=== PATIENT | female | born 1960 | race Caucasian/White ===

== ENCOUNTER 2020-06-06 11:19 | Outpatient (REF) | payer OTHER, SELFPAY | END 2020-06-06 11:20 | disposition home or self-care (01) | LOC: HO.LAB 11:19 | PROVIDERS: Visit Provider Internal Medicine | DX: Z20.828 Contact with and (suspected) exposure to other viral communicable diseases (principal) | CPT/HCPCS: C9803; U0003 ==

== ENCOUNTER 2021-04-24 15:24 | Inpatient (IN) | payer MEDICAID, SELFPAY ==
[2021-04-24] VITALS (7 sets, daily range): BP systolic 99–137; BP diastolic 62–84; PULSE 69–108; RESP 12–18; TEMP 36.4–36.8; O2SAT 93–99; BMI 24.2
--- NOTE | ~2021-04-24 | CT_ITS ---
EXAMINATION: CT ABDOMEN AND PELVIS WITH CONTRAST CLINICAL INFORMATION: Vomiting. Diarrhea. Abdominal pain. COMPARISON: CT scan abdomen March 22, 2007 TECHNIQUE: Multidetector volumetric images were obtained from the superior aspect of the liver through the pubic symphysis following administration 85 mL of Omnipaque 350 intravenous contrast. Sagittal and coronal reformatted images were obtained on the technologist's workstation. Oral contrast: No This CT examination was performed using dose optimization techniques as appropriate, variously including the following: *Automated exposure control *Adjustment of mA and/or kV according to patient size (this includes techniques or standardized protocols for targeted exams where dose is matched to indication/reason for exam; i.e. extremities or head) *Use of iterative reconstruction technique DLP: 742 mGy-cm FINDINGS: LUNG BASES: The visualized lung bases are unremarkable. LIVER, GALLBLADDER, AND BILIARY TREE: The liver is normal in size, shape, and attenuation. No focal hepatic lesion or biliary ductal dilatation is present. Status post cholecystectomy. Chronic dilatation of the CBD to a diameter of 1.2 cm. No calcified stone present in the bile ducts. PANCREAS: Unremarkable. SPLEEN: Unremarkable. ADRENAL GLANDS: Unremarkable. KIDNEYS AND URETERS: The kidneys are normal in size, shape, and attenuation. No hydronephrosis, hydroureter, or calculi seen. No perinephric stranding. BLADDER: Unremarkable. GASTROINTESTINAL TRACT: There is fat involving the submucosa of the cecum ascending and proximal transverse colon. This can be seen as sequela of prior inflammatory disease. No evidence though of acute inflammation of the colon. There is however dilatation of the mid through distal small bowel loops up to the terminal ileum. Transition point at the ileocecal valve. No mass involving the ileocecal valve, colon or small bowel. There is bowel wall thickening and mild enhancement of the small bowel loops which is most pronounced at the distal terminal ileum. There is mild edema in the mesentery with small volume of free fluid in the lower pelvis but no abscess or perforation. The stomach and duodenum are normal. There are diverticula of the sigmoid colon without evidence of diverticulitis. ABDOMINAL WALL: No significant hernia is appreciated. LYMPH NODES: Normal. VASCULAR: Unremarkable. PELVIC VISCERA: Unremarkable. OSSEOUS STRUCTURES: Unremarkable. CT/CT abdomen pelvis w con IMPRESSION: 1. There is dilatation of small bowel loops involving the mid and distal small bowel through the terminal ileum with bowel wall thickening and mild enhancement consistent with a moderate to high-grade small bowel obstruction. Transition point is at the ileocecal valve. 2. No dilatation of the large bowel. There is however fatty deposition the submucosa of the cecum, ascending colon through proximal transverse colon which can be a sequela of prior chronic inflammatory change of bowel. There is no evidence of an acute inflammation though of the colon. 3. Diverticulosis of the sigmoid colon without evidence of diverticulitis.
--- NOTE | ~2021-04-24 | XR_ITS ---
EXAMINATION: XR ABDOMEN COMPLETE CLINICAL INDICATION: C. Difficile, small bowel obstruction. Follow-up. COMPARISON: CT abdomen and pelvis with contrast 04/24/2021 TECHNIQUE: 3 views of the abdomen. FINDINGS: There are scattered gas in the large and small bowel which are normal in caliber. There is no gaseous dilatation of bowel. No pneumatosis or visible free air. No visible bowel displacement. No thumbprinting seen on plain film. There are surgical clips right upper quadrant from prior cholecystectomy. There is contrast in the urinary bladder from recent CT. XR/XR acute abdomen series IMPRESSION: No gaseous dilatation of bowel or abnormal collections of gas. No pneumatosis.
[2021-04-24 16:05] LABS: Glucose, Whole Blood 165 mg/dL (60-115)
--- NOTE | 2021-04-24 16:23 | ECG_ITS ---
Test Reason : NAUSEA Blood Pressure : / mmHG Vent. Rate : 070 BPM Atrial Rate : 070 BPM P-R Int : 136 ms QRS Dur : 082 ms QT Int : 438 ms P-R-T Axes : 002 023 029 degrees QTc Int : 473 ms Normal sinus rhythm Nonspecific T wave abnormality Prolonged QT Abnormal ECG T wave amplitude has decreased in Anterolateral leads Inferior leads Referred By: Altaf Chaudhry Electronically Signed By:TOD ESQUIVEL MD
[2021-04-24 16:27] LABS: Basophils Absolute Auto 0.1 X10*3/uL (0.0-0.2); Basophils Percent Auto 0.2 % (0-2); Eosinophils Absolute Auto 0.1 X10*3/uL (0.0-0.4); Eosinophils Percent Auto 0.4 % (0-4); Hematocrit 45.9 % (37-47); Hemoglobin 15.1 g/dl (12.0-16.0); Imm Gran Abs Auto 0.15 X10*3/uL (0.00-0.03); Imm Gran Pct Auto 0.6 % (0.0-0.4); Lymphocytes Absolute Auto 1.3 X10*3/uL (1.2-4.9); Lymphocytes Percent Auto 5.2 % (20-40); MANUAL DIFF FLAG SCAN; Mean Corpuscular HGB Conc 32.9 g/dl (31.0-35.0); Mean Corpuscular Hemoglobin 29.8 pg (27.0-33.0); Mean Corpuscular Volume 90.7 fL (80-98); Monocytes Absolute Auto 0.7 X10*3/uL (0.1-1.2); Monocytes Percent Auto 2.9 % (2-11); Neutrophils Absolute Auto 22.7 X10*3/uL (2.0-8.3); Neutrophils Percent Auto 90.7 % (45-73); Platelet Count 365 X10*3/uL (160-400); Red Blood Count 5.06 X10*6/uL (4.20-5.50); Red Cell Distribution Width 13.6 % (11.0-16.0); SCAN SMEAR FLAG 1; White Blood Count 25.1 X10*3/uL (4.8-10.8)
[2021-04-24 16:47] LABS: Troponin-I High Sensitivity 8.5 ng/L (<3.5-17.0)
[2021-04-24 16:48] LABS: Alanine Aminotransferase 31 U/L (0-31); Albumin Level 4.3 g/dL (3.5-5.0); Alkaline Phosphatase 81 U/L (39-117); Aspartate Amino Transferase 34 U/L (5-31); Bilirubin Total 0.7 mg/dL (0.0-1.0); Blood Urea Nitrogen 8 mg/dL (9-16); C Reactive Protein 2.17 mg/dL (< or = 0.50); Calcium 7.4 mg/dL (8.4-10.2); Creatinine Clr Calc Pharmacy 44.4; Estimated Glomerular Filt Rate 43; Glucose Random 173 mg/dL (60-115); Lipase 28 U/L (8-78); Total Protein 6.9 g/dL (6.5-8.0)
[2021-04-24 16:59] LABS: Anion Gap 22 (12-20); Carbon Dioxide 28 mmol/L (22-29); Chloride 99 mmol/L (96-108); Potassium 2.7 mmol/L (3.3-5.1); Sodium 146 mmol/L (135-145)
[2021-04-24] MEDS: ondansetron HCL 4 MG/2 ML VIAL IVPUSH (16:59)
[2021-04-24] MEDS: Ketorolac Tromethamine 15 MG/ML VIAL 30 MG IVPUSH (16:59)
[2021-04-24] MEDS: 0.9 % Sodium Chloride 1,000 ML 999 ML IV (16:59)
[2021-04-24 17:13] LABS: COVID-19 Test Negative (Negative); IDNOW Serial# 9DD0AD1C
--- NOTE | 2021-04-24 17:27 | ED.GENADULT ---
HPI - General Adult General Chief complaint: Nausea/Vomiting/Diarrhea Stated complaint: RECENT UTI W/ MEDS, FACE SWELLING Time Seen by Provider: 04/24/21 15:44 Source: patient Mode of arrival: EMS Limitations: no limitations History of Present Illness HPI narrative: 61-year-old female who presents emergency department for evaluation of nausea, vomiting, diarrhea and weakness. The patient states that she was in the [place] for a wedding from 04/09/2021 until 04/18/2021. She states that on 04/12/2021 she developed diarrhea and vomiting. She states that she had multiple episodes of diarrhea and vomiting, too numerous to count. She states that she was hospitalized for 2 days and receive ciprofloxacin and Flagyl. She states that she was diagnosed with a urinary tract infection. She states that she was sent home on Flagyl but did not complete her course. She states that over the past 2 days her symptoms returned. She states that she has been vomiting three to 4 times a day. She states that she has also had multiple episodes of diarrhea per day. She states the diarrhea is watery with pieces of stool in it. She has not noticed any blood in the diarrhea. She denied fever but states she has been having chills. She states she was feeling weak lightheaded and dizzy. patient states that she was on the toilet and developed a cramping sensation while she was moving her bowels, she felt lightheaded and dizzy as if she is going to pass out, she then had trouble talking and moving, her called an ambulance and she was transported to the emergency department. EMS reports the patient was lethargic and they gave her Benadryl IV since they were concerned that she was having allergic reaction (she was on antibiotics and she appeared to have redness of her upper extremities and face). EMS reports the patient seemed to wake up after the Benadryl was administered. Related Data Allergies Allergy/AdvReac Type Severity Reaction Status Date / Time amoxicillin [From AUGMENTIN] Allergy Mild NAUSEA & Unverified 03/14/20 14:43 VOMITING clavulanic acid Allergy Mild NAUSEA & Unverified 03/14/20 14:43 [From AUGMENTIN] VOMITING Penicillins [PCN] Allergy Mild HIVES Unverified 03/14/20 14:43 Sulfa (Sulfonamide Allergy Mild HIVES Unverified 03/14/20 14:43 Antibiotics) [SULFA (SULFONAMIDE ANTIBIOTICS)] Review of Systems Review of Systems: Yes all other systems are reviewed and are negative [facility] Past Medical History [facility] Narrative: Past medical history: Asthma, GERD. Past surgical history: Cholecystectomy, tonsillectomy. Social history: The patient smokes 1/2 pack of cigarettes per day times 45 years. The patient drinks alcohol once or twice a week, she drinks wine. She states she is allergic to pops and beer. Patient denies drug use. Social History Social History Alcohol intake: current Alcohol intake frequency: a few times a month Patient Tobacco Use Status: Never used Tobacco Use of substances other than those prescribed or required for medical reasons: No Advance Directives: No Advance Directives Information Provided: No Patient : No Physical Exam Vital Signs: Vital Signs: Last Vital Signs Temp 98.3 F 04/24/21 17:50 Pulse 85 04/24/21 18:34 Resp 13 04/24/21 18:34 BP 123/72 04/24/21 18:34 Pulse Ox 93 04/24/21 17:50 Body Mass Index 24.2 Const: General: cooperative and no acute distress Orientation/consciousness: oriented to person and oriented to place Limitations: no limitations HENMT: Head: Yes normal to inspection, Yes normocephalic and Yes atraumatic Ears: external ears normal General nose exam: Normal external nose present Face and sinus: Yes normal facial exam Mouth: Normal oral and palatal mucosa present Throat: Yes posterior oropharynx normal Eyes: General: appearance normal, both eyes and all related structures Pupils: Equal, round and reactive pupils present Neck: Neck: Yes normal visual inspection, Yes no lymphadenopathy, Yes trachea midline and Yes supple Chest: Chest palpation & inspection: normal inspection of the chest and normal palpation of entire chest wall Resp: Effort & Inspection: normal respiratory effort and able to speak in complete sentences Auscultation: clear to auscultation bilaterally Cardio: Rate: regular rate Rhythm: regular rhythm Heart sounds: S1 normal heart sound present, S2 normal heart sound present and no murmurs GI: Inspection: Yes normal to inspection Palpation (GI): Soft to palpation, Tenderness to palpation present (GI) in the LLQ ([id number]) and no guarding Auscultation: normal bowel sounds : General: Yes no CVA tenderness Back/Spine/Pelvis: Back: no CVA tenderness Skin: General skin exam: no rashes or lesions noted Neuro: General: oriented to person and oriented to place Cranial nerves: Yes CN's II-XII intact bilaterally and Yes Equal, round and reactive pupils present Cognition (Neuro): normal cognition Motor exam (neuro): 5/5 motor strength present throughout Extrem: General: Yes normal to inspection Psych: Appearance: grossly normal Speech and movement: Normal speech and movement present Affect: normal affect Attitude: cooperative Thought process: Normal thought process present Thought content: Normal thought content present Course Course Course Narrative: 61-year-old female who presents emergency department for evaluation of several days of vomiting, diarrhea, decreased appetite poor food intake. The patient was recently traveling in the [place] for awaiting from 04/09/2021 to 04/18/2021. She did developed diarrhea and vomiting while she was in the [facility] and was hospitalized for 2 days with possible urinary tract infection, which was treated with ciprofloxacin and Flagyl. She was discharged home with Flagyl did not complete the course. Prior to coming to the emergency department today, the patient had a episode of weakness while she was on the toilet and this is consistent with a vasovagal syncope most likely secondary to dehydration. Patient's examination did reveal tenderness palpation of her left lower quadrant of her abdomen otherwise was unremarkable. I did order a CBC, CMP, lactic acid, blood cultures x2, stool culture, stool leukocytes, C difficile PCR assay. CT scan of the abdomen pelvis was also ordered to evaluate for possible colitis. She was ordered to get Toradol 30 mg IV, Zofran 4 mg IV and normal saline x1 L. 1740: [place] [address], differential revealed 90 neutrophils, 5 lymphocytes. Comprehensive metabolic panel revealed an elevated sodium of 146, low potassium of 2.7, normal bicarb of 28 but an anion gap of 22. BUN and creatinine were normal. Lactate was elevated at 4.0. CRP is elevated 2.17. Lipase was normal. COVID-19 test was negative. Patient's laboratory evaluation is consistent with metabolic acidosis. Patient does have an elevated white blood cell count is also concerning, the patient may have the C difficile colitis versus bacterial cause for her diarrhea. I do not have a urine sample on the patient yet. Given the possibility for C difficile colitis, I do not want to give this patient antibiotics and the some certain that she has a bacterial infection. . I did order a 30 cc/kilogram fluid bolus. 190: The patient's C difficile colitis as a is positive. Patient will be treated with oral vancomycin. The patient's CT scan of the abdomen pelvis however did reveal dilatation of the small bowel loops involving the mid and distal small bowel through the terminal ileum with bowel wall thickening and mild enhancement consistent with moderate to high-grade small-bowel obstruction with a transition point at the ileocecal valve. This is concerning for possible inflammatory bowel disease. The patient did not have any dilatation of the transverse colon and no evidence for colitis. I do not think the patient has a complete bowel obstruction and she may have a partial bowel obstruction. I will discuss this finding covering rn new graduate 1927: I did discuss the patient's presentation with our rn new graduate, Dr. Crowe. He recommended treating the C difficile with oral vancomycin 250 mg 4 times a day. He recommended getting a plain abdominal film in the morning. He also recommended discussing the CT scan findings with the covering surgeon. 1931: I did discuss the patient's presentation with the covering general surgeon, Dr. Smith. She also recommended treating the patient C difficile colitis and did not think that the patient required emergent surgery at this time. I will discuss the patient's presentation with the covering hospitalist. Medical Decision Making Lab Data Result diagrams: 04/24/21 16:18 04/24/21 16:18 Labs: Lab Results 04/24/21 04/24/21 04/24/21 Range/Units 15:46 16:18 16:18 WBC 25.1 H (4.8-10.8) X10*3/uL RBC 5.06 (4.20-5.50) X10*6/uL Hgb 15.1 (12.0-16.0) g/dl Hct 45.9 (37-47) % MCV 90.7 (80-98) fL MCH 29.8 (27.0-33.0) pg MCHC 32.9 (31.0-35.0) g/dl RDW 13.6 (11.0-16.0) % Plt Count 365 (160-400) X10*3/uL MPV 10.0 (9.4-12.3) fL Immature Gran % (Auto) 0.6 H (0.0-0.4) % Neut % (Auto) 90.7 H (45-73) % Lymph % (Auto) 5.2 L (20-40) % [place] % (Auto) 2.9 (2-11) % Eos % (Auto) 0.4 (0-4) % Baso % (Auto) 0.2 (0-2) % Lymph # (Auto) 1.3 (1.2-4.9) X10*3/uL [place] # (Auto) 0.7 (0.1-1.2) X10*3/uL Eos # (Auto) 0.1 (0.0-0.4) X10*3/uL Baso # (Auto) 0.1 (0.0-0.2) X10*3/uL Abs Immat Gran (auto) 0.15 H (0.00-0.03) X10*3/uL Absolute Neuts (auto) 22.7 H (2.0-8.3) X10*3/uL Absolute Nucleated RBC 0.000 (0.0-0.012) X10*3/uL Nucleated RBC % (auto) 0.0 (0.0-0.2) /100WBC Smear Tech's Comments VERIFIED Sodium 146 H (135-145) mmol/L Potassium 2.7 L (3.3-5.1) mmol/L Chloride 99 (96-108) mmol/L Carbon Dioxide 28 (22-29) mmol/L Anion Gap 22 H (12-20) BUN 8 L (9-16) mg/dL Creatinine 1.26 (0.5-1.4) mg/dL Estim Creat Clear Calc 44.4 Estimated GFR 43 POC Glucose 165 H (60-115) mg/dL Random Glucose 173 H (60-115) mg/dL Lactic Acid (0.5-2.0) mmol/L Lactic Acid Fup @ 2Hr (0.5-2.0) mmol/L Calcium 7.4 L (8.4-10.2) mg/dL Total Bilirubin 0.7 (0.0-1.0) mg/dL AST 34 H (5-31) U/L ALT 31 (0-31) U/L Alkaline Phosphatase 81 (39-117) U/L Troponin I High Sens (<3.5-17.0) ng/L C-Reactive Protein 2.17 H (< or = 0.50) mg/dL Total Protein 6.9 (6.5-8.0) g/dL Albumin 4.3 (3.5-5.0) g/dL Lipase 28 (8-78) U/L Stool Leukocytes, Qual (NEGATIVE) C. difficile Tox B Gene (Negative) COVID-19 (KJ) (Negative) COVID-19 Clin Com 04/24/21 04/24/21 04/24/21 Range/Units 16:18 16:18 16:18 WBC (4.8-10.8) X10*3/uL RBC (4.20-5.50) X10*6/uL Hgb (12.0-16.0) g/dl Hct (37-47) % MCV (80-98) fL MCH (27.0-33.0) pg MCHC (31.0-35.0) g/dl RDW (11.0-16.0) % Plt Count (160-400) X10*3/uL MPV (9.4-12.3) fL Immature Gran % (Auto) (0.0-0.4) % Neut % (Auto) (45-73) % Lymph % (Auto) (20-40) % [place] % (Auto) (2-11) % Eos % (Auto) (0-4) % Baso % (Auto) (0-2) % Lymph # (Auto) (1.2-4.9) X10*3/uL [place] # (Auto) (0.1-1.2) X10*3/uL Eos # (Auto) (0.0-0.4) X10*3/uL Baso # (Auto) (0.0-0.2) X10*3/uL Abs Immat Gran (auto) (0.00-0.03) X10*3/uL Absolute Neuts (auto) (2.0-8.3) X10*3/uL Absolute Nucleated RBC (0.0-0.012) X10*3/uL Nucleated RBC % (auto) (0.0-0.2) /100WBC Smear Tech's Comments Sodium (135-145) mmol/L Potassium (3.3-5.1) mmol/L Chloride (96-108) mmol/L Carbon Dioxide (22-29) mmol/L Anion Gap (12-20) BUN (9-16) mg/dL Creatinine (0.5-1.4) mg/dL Estim Creat Clear Calc Estimated GFR POC Glucose (60-115) mg/dL Random Glucose (60-115) mg/dL Lactic Acid 4.0 H* (0.5-2.0) mmol/L Lactic Acid Fup @ 2Hr (0.5-2.0) mmol/L Calcium (8.4-10.2) mg/dL Total Bilirubin (0.0-1.0) mg/dL AST (5-31) U/L ALT (0-31) U/L Alkaline Phosphatase (39-117) U/L Troponin I High Sens 8.5 (<3.5-17.0) ng/L C-Reactive Protein (< or = 0.50) mg/dL Total Protein (6.5-8.0) g/dL Albumin (3.5-5.0) g/dL Lipase (8-78) U/L Stool Leukocytes, Qual (NEGATIVE) C. difficile Tox B Gene (Negative) COVID-19 (KJ) Negative (Negative) COVID-19 Clin Com See Note 04/24/21 04/24/21 04/24/21 Range/Units 16:50 16:50 18:42 WBC (4.8-10.8) X10*3/uL RBC (4.20-5.50) X10*6/uL Hgb (12.0-16.0) g/dl Hct (37-47) % MCV (80-98) fL MCH (27.0-33.0) pg MCHC (31.0-35.0) g/dl RDW (11.0-16.0) % Plt Count (160-400) X10*3/uL MPV (9.4-12.3) fL Immature Gran % (Auto) (0.0-0.4) % Neut % (Auto) (45-73) % Lymph % (Auto) (20-40) % [place] % (Auto) (2-11) % Eos % (Auto) (0-4) % Baso % (Auto) (0-2) % Lymph # (Auto) (1.2-4.9) X10*3/uL [place] # (Auto) (0.1-1.2) X10*3/uL Eos # (Auto) (0.0-0.4) X10*3/uL Baso # (Auto) (0.0-0.2) X10*3/uL Abs Immat Gran (auto) (0.00-0.03) X10*3/uL Absolute Neuts (auto) (2.0-8.3) X10*3/uL Absolute Nucleated RBC (0.0-0.012) X10*3/uL Nucleated RBC % (auto) (0.0-0.2) /100WBC Smear Tech's Comments Sodium (135-145) mmol/L Potassium (3.3-5.1) mmol/L Chloride (96-108) mmol/L Carbon Dioxide (22-29) mmol/L Anion Gap (12-20) BUN (9-16) mg/dL Creatinine (0.5-1.4) mg/dL Estim Creat Clear Calc Estimated GFR POC Glucose (60-115) mg/dL Random Glucose (60-115) mg/dL Lactic Acid (0.5-2.0) mmol/L Lactic Acid Fup @ 2Hr 4.5 H* (0.5-2.0) mmol/L Calcium (8.4-10.2) mg/dL Total Bilirubin (0.0-1.0) mg/dL AST (5-31) U/L ALT (0-31) U/L Alkaline Phosphatase (39-117) U/L Troponin I High Sens (<3.5-17.0) ng/L C-Reactive Protein (< or = 0.50) mg/dL Total Protein (6.5-8.0) g/dL Albumin (3.5-5.0) g/dL Lipase (8-78) U/L Stool Leukocytes, Qual NEGATIVE (NEGATIVE) C. difficile Tox B Gene POSITIVE A* (Negative) COVID-19 (KJ) (Negative) COVID-19 Clin Com Discharge Plan Discharge Clinical Impression: Clostridium difficile infection, Acute hypokalemia, Acute dehydration, Vasovagal syncope, Vasovagal near syncope Patient Disposition: Admitted As Inpatient
[2021-04-24 18:08] LABS: SLIDE REVIEW VERIFIED
[2021-04-24] MEDS: iohexoL 350 MG/ML 100 ML INFUS..BTL IV (18:11)
[2021-04-24] MEDS: 0.9 % Sodium Chloride 2,041.17 ML 2041.17 ML IV (18:15)
[2021-04-24] MEDS: Potassium Chloride/H20 10 MEQ/100 ML PIGGYBACK 100 MEQ IV ×4 (18:17→23:32)
[2021-04-24] MEDS: Potassium Chloride Packet 20 MEQ PACKET 40 MEQ PO (18:17)
[2021-04-24 18:24] LABS: Reflex Lactate? Lactic Acid Added
[2021-04-24 18:26] LABS: Leukocytes Stool Qualitative NEGATIVE (NEGATIVE)
[2021-04-24 18:42] LABS: CDiff Gene PCR POSITIVE (Negative)
[2021-04-24 19:16] LABS: ~Lactic Acid-LAB USE ONLY 4.5 mmol/L (0.5-2.0)
[2021-04-24 19:30] LABS: CDIFF Internal ctrl Dots and bkg OK (V); CDiff Toxin Negative (Negative)
[2021-04-24] MEDS: vancomycin HCL 125 MG CAPSULE PO (19:41)
--- NOTE | 2021-04-24 20:02 | PM.IMHP ---
History of Present Illness Date of Service: 04/24/21 Chief Complaint: Diarrhea 61-year-old female with a past medical history of GERD, question irritable bowel syndrome; presented to the hospital with a chief complaint of diarrhea. Patient reported that she had diarrhea about 2 weeks ago and has seen the PCP who were thinking she probably had interval bowel syndrome. Mentioned that she went to [facility] for travel and had question talus diarrhea/UTI and was admitted to the hospital for 2 days and was on Cipro and Flagyl. At the time she also was noted to have oral thrush. She returned from [facility] on last Wednesday; from Wednesday she started to have diarrhea which was initially few episodes but today she has multiple episodes of loose watery stools; denies any blood in the stool. Also had multiple episodes of vomiting; denies any blood in the vomitus. Complains of intermittent episodes of crampy abdominal pain which is also on its own. Denies any numbness tingling or focal weakness. Today when she was having a bowel movement she felt lightheaded and dizzy and also chills; denies any fall or loss of consciousness. Denies any chest pain or palpitations. Currently denies any lightheadedness dizziness or chest pains. Denies any urinary symptoms. Review of all other systems is negative except mentioned above ER course: Per ER team patient noted to be dry; on labs noted to have lactic acidosis; on CT abdomen noted to have high-grade small-bowel obstruction; C diff positive; ER team discussed with Dr. Crowe from Gastroenterology who recommended to give the patient 250 mg of p.o. vancomycin-also concern for possible inflammatory bowel disease undiagnosed, be evaluated in the morning. ER team also spoke to Gastroenterology who mentioned no acute surgery needed, recommended treating C diff. admission to Medicine Service. [facility] Pertinent family history: reviewed Social History Alcohol intake: current Alcohol intake frequency: a few times a month Patient Tobacco Use Status: Current everyday Tobacco user Tobacco use type: Cigarette Cigarette Packs Per Day: 0.5 Cigarettes Per Day: 10.0 Smoked in Last 30 Days: Yes Patient Interested in Nicotine Replacement: No Use of substances other than those prescribed or required for medical reasons: No Currently Displaying Signs/Symptoms of Drug Intoxication Withdrawal: No Have you been hit, kicked, punched, or otherwise hurt by someone within the past year? If so, by whom?: No Do you feel safe in your current relationship?: Yes Is there a partner from a previous relationship who is making you feel unsafe now?: No Are you made to feel afraid or neglected: No Advance Directives: No Advance Directives Information Provided: No Advance Directives on File: No Do you have thoughts of harming others: None Do you have a plan to hurt others: No Plan Recently lost weight without trying: No Nutrition Risks: Poor intake 0-25% >4 days Patient : No : No Poor oral hygiene: No Meds Allergies Allergy/AdvReac Type Severity Reaction Status Date / Time amoxicillin [From AUGMENTIN] Allergy Mild NAUSEA & Verified 04/24/21 20:16 VOMITING clavulanic acid Allergy Mild NAUSEA & Verified 04/24/21 20:16 [From AUGMENTIN] VOMITING Penicillins [PCN] Allergy Mild HIVES Verified 04/24/21 20:16 Sulfa (Sulfonamide Allergy Mild HIVES Verified 04/24/21 20:16 Antibiotics) [SULFA (SULFONAMIDE ANTIBIOTICS)] Active Medications: Current Medications Acetaminophen (Acetaminophen 325 Mg Tablet) 650 mg PO Q6H PRN PRN Reason: Pain, Mild (Pain Scale 1-3) Famotidine (Famotidine/Pf 20 Mg/2 Ml Vial) 20 mg IVPUSH BID [facility] Potassium Chloride () 10 meq in 100 mls @ 100 mls/hr IV Q1H [facility] Stop: 04/24/21 21:44 Last Admin: 04/24/21 19:36 Dose: 100 mls/hr Documented by: Dextrose/Sodium Chloride (D51/2ns) 1,000 mls @ 75 mls/hr IVCONT .[id number] [facility] Melatonin (Melatonin 3 Mg Tablet) 6 mg PO BEDTIME PRN PRN Reason: Insomnia Senna (Sennosides 8.6 Mg Tablet) 17.2 mg PO BEDTIME PRN PRN Reason: Constipation Sodium Chloride (0.9 % Sodium Chloride Flush 3 Ml Syringe) 3 ml IVFLUSH QSHIFT [facility] Vancomycin HCl (Vancomycin Hcl 125 Mg Capsule) 125 mg PO ONCE [place] Vancomycin HCl (Vancomycin Hcl 125 Mg Capsule) 250 mg PO Q6H [facility] Home Medications Medication Instructions Recorded Confirmed Last Taken Type albuterol sulfate 90 mcg/actuation 2 puff PO QID 04/24/21 04/24/21 Unknown History aerosol inhaler fluticasone 100 mcg-salmeterol 50 1 puff PO BID 04/24/21 04/24/21 Unknown History mcg/dose blistr powdr for inhalation (Advair Diskus) omeprazole 20 mg capsule,delayed 1 cap PO BID 04/24/21 04/24/21 04/24/21 History release Physical Exam Vital Signs and Narrative: Vital Signs: Last Vital Signs Temp 98.3 F 04/24/21 17:50 Pulse 85 04/24/21 18:34 Resp 13 04/24/21 18:34 BP 123/72 04/24/21 18:34 Pulse Ox 93 04/24/21 17:50 Body Mass Index 24.2 Gen: Appears be in no acute distress; speaks in full sentences HEENT: NCAT, dry mucosa. Pulmonary: Vesicular breath sounds, fair air entry CVS: Normal S1-S2 Abdomen: BS+, Soft, mildly tender in upper abdomen; no guarding no rigidity; Extremities: Warm well perfused Neuro: Alert and awake. Grossly nonfocal Results Labs CBC and Chem 7: 04/24/21 16:18 04/24/21 16:18 Labs: Laboratory Results - last 24 hr 04/24/21 04/24/21 04/24/21 15:46 16:18 16:18 MCV 90.7 MCH 29.8 MCHC 32.9 RDW 13.6 Plt Count 365 MPV 10.0 Immature Gran % (Auto) 0.6 H Neut % (Auto) 90.7 H Lymph % (Auto) 5.2 L [place] % (Auto) 2.9 Eos % (Auto) 0.4 Baso % (Auto) 0.2 Lymph # (Auto) 1.3 [place] # (Auto) 0.7 Eos # (Auto) 0.1 Baso # (Auto) 0.1 Abs Immat Gran (auto) 0.15 H Absolute Neuts (auto) 22.7 H Absolute Nucleated RBC 0.000 Nucleated RBC % (auto) 0.0 Smear Tech's Comments VERIFIED Anion Gap 22 H Estim Creat Clear Calc 44.4 Estimated GFR 43 POC Glucose 165 H Random Glucose 173 H Lactic Acid Lactic Acid Fup @ 2Hr Calcium 7.4 L Total Bilirubin 0.7 AST 34 H ALT 31 Alkaline Phosphatase 81 Troponin I High Sens C-Reactive Protein 2.17 H Total Protein 6.9 Albumin 4.3 Lipase 28 Stool Leukocytes, Qual C. difficile Tox B Gene C. difficile Toxin A&B C. difficile Interpret COVID-19 ([facility]) [employer] 04/24/21 04/24/21 04/24/21 16:18 16:18 16:18 MCV MCH MCHC RDW Plt Count MPV Immature Gran % (Auto) Neut % (Auto) Lymph % (Auto) [place] % (Auto) Eos % (Auto) Baso % (Auto) Lymph # (Auto) [place] # (Auto) Eos # (Auto) Baso # (Auto) Abs Immat Gran (auto) Absolute Neuts (auto) Absolute Nucleated RBC Nucleated RBC % (auto) Smear Tech's Comments Anion Gap Estim Creat Clear Calc Estimated GFR POC Glucose Random Glucose Lactic Acid 4.0 H* Lactic Acid Fup @ 2Hr Calcium Total Bilirubin AST ALT Alkaline Phosphatase Troponin I High Sens 8.5 C-Reactive Protein Total Protein Albumin Lipase Stool Leukocytes, Qual C. difficile Tox B Gene C. difficile Toxin A&B C. difficile Interpret COVID-19 ([facility]J) Negative [facility] See Note 04/24/21 04/24/21 04/24/21 16:50 16:50 18:42 MCV MCH MCHC RDW Plt Count MPV Immature Gran % (Auto) Neut % (Auto) Lymph % (Auto) [place] % (Auto) Eos % (Auto) Baso % (Auto) Lymph # (Auto) [place] # (Auto) Eos # (Auto) Baso # (Auto) Abs Immat Gran (auto) Absolute Neuts (auto) Absolute Nucleated RBC Nucleated RBC % (auto) Smear Tech's Comments Anion Gap Estim Creat Clear Calc Estimated GFR POC Glucose Random Glucose Lactic Acid Lactic Acid Fup @ 2Hr 4.5 H* Calcium Total Bilirubin AST ALT Alkaline Phosphatase Troponin I High Sens C-Reactive Protein Total Protein Albumin Lipase Stool Leukocytes, Qual NEGATIVE C. difficile Tox B Gene POSITIVE A* C. difficile Toxin A&B Negative C. difficile Interpret SEE NOTE COVID-19 ([facility]) [facility] Radiologist's Impressions: Impressions Abdomen/Pelvis CT 04/24/21 16:13 IMPRESSION: 1. There is dilatation of small bowel loops involving the mid and distal small bowel through the terminal ileum with bowel wall thickening and mild enhancement consistent with a moderate to high-grade small bowel obstruction. Transition point is at the ileocecal valve. 2. No dilatation of the large bowel. There is however fatty deposition the submucosa of the cecum, ascending colon through proximal transverse colon which can be a sequela of prior chronic inflammatory change of bowel. There is no evidence of an acute inflammation though of the colon. 3. Diverticulosis of the sigmoid colon without evidence of diverticulitis. Assessment and Plan (1) Clostridium difficile infection: Status: Acute (2) Acute hypokalemia: Status: Acute (3) Acute dehydration: Status: Acute (4) Vasovagal near syncope: Status: Acute (5) SBO (small bowel obstruction): Status: Acute 61-year-old female with a past medical history of GERD, question irritable bowel syndrome; presented to the hospital with a chief complaint of diarrhea. Noted to have C diff infection/high-grade small-bowel obstruction. C diff diarrhea: Will continue the patient on 250 mg q.6 hours p.o. vancomycin per GI recommendations Will continue to monitor p.o. tolerability given SBO. Id consult for further recommendations on antibiotic choice GI consulted Small-bowel obstruction: NPO; IV fluids Supportive care General surgery recommended conservative management. Hypokalemia: In the setting of multiple episodes of diarrhea. Repeating with IV potassium. EKG no acute changes. Lactic acidosis: IV fluids Near Syncope: likely secondary ; EKG negative; Troponins \negative; Telemetry; fall precautions. DVTppx: SCD Full code. Quality Stroke Does the patient have a stroke diagnosis?: No VTE Prior VTE?: No VTE Risk Level:: Medical - low VTE Device Contraindication: N/A - Device Ordered VTE Drug Contraindication: Treatment Not Indicated
--- NOTE | 2021-04-24 20:18 | PC.NURSE ---
Patient complaining of pain from the iv site. Currently receiving potassium IV which is known to cause burning at the iv site. IV slowed down to see if it helps resolve burning.
[2021-04-24 20:42] LABS: Troponin-I High Sensitivity 16.6 ng/L (<3.5-17.0)
[2021-04-24 20:45] LABS: Reflex Lactate? 2 Y
[2021-04-24] MEDS: Famotidine/PF 20 MG/2 ML VIAL IVPUSH (21:42)
[2021-04-24 22:02] LABS: ~Lactic Acid-LAB USE ONLY 1.9 mmol/L (0.5-2.0)
--- NOTE | 2021-04-24 22:15 | P.EN_ITS ---
Event Note Date of Service: 04/24/21 Event Note: GI-Consult received, chart reviewed, and case D/W ER . Full cons ult will be done on 04/25/2021. Given what appears to be a significant intraabdominal process with leukocytosis, inital lactic acidosis,+ C.diff, and component of possible SBO, I would agree with admission and surgical consult. I will increase the Vanco to 500mg po Q6 and add IV Flagyl as well. Repeat labs and abdominal xray in AM. Place NG tube if symptoms of obstruction with vomiting develop. The component of obstruction could be as a result of edema/inflammation at the Ileocecal valve or adhesions. Another possibility would be underlying Crohn's disease. Thanks
[2021-04-24] MEDS: metroNIDAZOLE/NS 500 MG/100 ML PIGGYBACK 100 MG IV (23:25)
[2021-04-25] MEDS: KCl 40 mEq in 5% Dex/0.45% Sod 40 MEQ/1,000 ML IV.SOLN 75 MEQ IVCONT ×2 (01:51→15:09)
[2021-04-25 03:36] VITALS: BP 120/59; PULSE 75; RESP 17; TEMP 36.6; O2SAT 93
[2021-04-25] MEDS: vancomycin HCL 125 MG CAPSULE 500 MG PO ×4 (05:45→22:58)
[2021-04-25] MEDS: metroNIDAZOLE/NS 500 MG/100 ML PIGGYBACK 100 MG IV ×3 (05:48→21:45)
[2021-04-25 07:27] LABS: MANUAL DIFF FLAG NO
[2021-04-25 07:35] LABS: Basophils Percent Auto 0.4 % (0-2); Eosinophils Absolute Auto 0.3 X10*3/uL (0.0-0.4); Eosinophils Percent Auto 2.7 % (0-4); Hematocrit 36.1 % (37-47); Imm Gran Abs Auto 0.05 X10*3/uL (0.00-0.03); Imm Gran Pct Auto 0.4 % (0.0-0.4); Lymphocytes Absolute Auto 2.2 X10*3/uL (1.2-4.9); Lymphocytes Percent Auto 19.4 % (20-40); Mean Corpuscular HGB Conc 33.2 g/dl (31.0-35.0); Mean Corpuscular Hemoglobin 29.9 pg (27.0-33.0); Mean Platelet Volume 10.7 fL (9.4-12.3); Monocytes Absolute Auto 0.5 X10*3/uL (0.1-1.2); Monocytes Percent Auto 4.8 % (2-11); Neutrophils Absolute Auto 8.2 X10*3/uL (2.0-8.3); Neutrophils Percent Auto 72.3 % (45-73); Platelet Count 250 X10*3/uL (160-400); Red Blood Count 4.01 X10*6/uL (4.20-5.50); Red Cell Distribution Width 13.9 % (11.0-16.0); White Blood Count 11.3 X10*3/uL (4.8-10.8)
[2021-04-25 07:38] LABS: Prothrombin Time 11.8 SEC (9.9-13.0)
--- NOTE | 2021-04-25 07:38 | P.PNIM_ITS ---
Subjective Subjective Date of Service: 04/25/21 Interval History: F/u on Cdif assocated diarrhea, persistent diarrhea and mild abdominal pain, no fever Review of Systems no fever diarrhea mild abdominal pain Physical Exam Vital Signs: Vital Signs: Last Vital Signs Temp 97.8 F 04/25/21 03:36 Pulse 75 04/25/21 03:36 Resp 17 04/25/21 03:36 BP 120/59 L 04/25/21 03:36 Pulse Ox 93 04/25/21 03:36 Body Mass Index 24.2 General: AO X 3, no acute distress Resp: CTA bilateral CVS: S1,S2,RRR GI: +BS, mild abdominal tenderness, no distention Skin: No rash Neuro: motor grossly intact Psych: appropriate affect Objective Data Active Medications Acetaminophen (Acetaminophen 325 Mg Tablet) 650 mg PO Q6H PRN PRN Reason: Pain, Mild (Pain Scale 1-3) Famotidine (Famotidine/Pf 20 Mg/2 Ml Vial) 20 mg IVPUSH BID [facility] Last Admin: 04/24/21 21:42 Dose: 20 mg Documented by: DENISE Hydromorphone HCl (Hydromorphone Hcl 0.5 Mg/0.5 Ml Syringe) 0.5 mg IVPUSH Q4H PRN; Protocol PRN Reason: Breakthrough Pain Potassium Chloride/Dextrose/Sod Cl () 40 meq in 1,000 mls @ 75 mls/hr IVCONT .[id number] [facility] Last Admin: 04/25/21 01:51 Dose: 75 mls/hr Documented by: FERNY Metronidazole (Flagyl) 500 mg in 100 mls @ 100 mls/hr IV Q8H [facility] Last Infusion: 04/25/21 07:17 Dose: 0 mls/hr Documented by: DEBBIE Melatonin (Melatonin 3 Mg Tablet) 6 mg PO BEDTIME PRN PRN Reason: Insomnia Senna (Sennosides 8.6 Mg Tablet) 17.2 mg PO BEDTIME PRN PRN Reason: Constipation Sodium Chloride (0.9 % Sodium Chloride Flush 3 Ml Syringe) 3 ml IVFLUSH QSHIFT [facility] Last Admin: 04/25/21 00:16 Dose: Not Given Documented by: FERNY Non-Admin Reason: IV Running Vancomycin HCl (Vancomycin Hcl 125 Mg Capsule) 500 mg PO Q6H [facility] Last Admin: 04/25/21 05:45 Dose: 500 mg Documented by: ROSS Labs CBC & Chem 7: 04/25/21 06:54 04/25/21 06:54 Labs: Laboratory Results - last 24 hr 04/24/21 04/24/21 04/24/21 15:46 16:18 16:18 WBC 25.1 H MCV 90.7 MCH 29.8 MCHC 32.9 RDW 13.6 Plt Count 365 MPV 10.0 Immature Gran % (Auto) 0.6 H Neut % (Auto) 90.7 H Lymph % (Auto) 5.2 L [place] % (Auto) 2.9 Eos % (Auto) 0.4 Baso % (Auto) 0.2 Lymph # (Auto) 1.3 [place] # (Auto) 0.7 Eos # (Auto) 0.1 Baso # (Auto) 0.1 Abs Immat Gran (auto) 0.15 H Absolute Neuts (auto) 22.7 H Absolute Nucleated RBC 0.000 Nucleated RBC % (auto) 0.0 Smear Tech's Comments VERIFIED Anion Gap 22 H Creatinine 1.26 Estim Creat Clear Calc 44.4 Estimated GFR 43 POC Glucose 165 H Random Glucose 173 H Lactic Acid Lactic Acid Fup @ 2Hr Lactic Acid Fup @ 4Hr Calcium 7.4 L Total Bilirubin 0.7 AST 34 H ALT 31 Alkaline Phosphatase 81 Troponin I High Sens C-Reactive Protein 2.17 H Total Protein 6.9 Albumin 4.3 Lipase 28 Stool Leukocytes, Qual C. difficile Tox B Gene C. difficile Toxin A&B C. difficile Interpret COVID-19 ([facility]) COVID-19 Clin Com 04/24/21 04/24/21 04/24/21 16:18 16:18 16:18 WBC MCV MCH MCHC RDW Plt Count MPV Immature Gran % (Auto) Neut % (Auto) Lymph % (Auto) [place] % (Auto) Eos % (Auto) Baso % (Auto) Lymph # (Auto) [place] # (Auto) Eos # (Auto) Baso # (Auto) Abs Immat Gran (auto) Absolute Neuts (auto) Absolute Nucleated RBC Nucleated RBC % (auto) Smear Tech's Comments Anion Gap Creatinine Estim Creat Clear Calc Estimated GFR POC Glucose Random Glucose Lactic Acid 4.0 H* Lactic Acid Fup @ 2Hr Lactic Acid Fup @ 4Hr Calcium Total Bilirubin AST ALT Alkaline Phosphatase Troponin I High Sens 8.5 C-Reactive Protein Total Protein Albumin Lipase Stool Leukocytes, Qual C. difficile Tox B Gene C. difficile Toxin A&B C. difficile Interpret COVID-19 ([facility]) Negative COVID-19 Clin Com See Note 04/24/21 04/24/21 04/24/21 16:50 16:50 18:42 WBC MCV MCH MCHC RDW Plt Count MPV Immature Gran % (Auto) Neut % (Auto) Lymph % (Auto) [place] % (Auto) Eos % (Auto) Baso % (Auto) Lymph # (Auto) [place] # (Auto) Eos # (Auto) Baso # (Auto) Abs Immat Gran (auto) Absolute Neuts (auto) Absolute Nucleated RBC Nucleated RBC % (auto) Smear Tech's Comments Anion Gap Creatinine Estim Creat Clear Calc Estimated GFR POC Glucose Random Glucose Lactic Acid Lactic Acid Fup @ 2Hr 4.5 H* Lactic Acid Fup @ 4Hr Calcium Total Bilirubin AST ALT Alkaline Phosphatase Troponin I High Sens C-Reactive Protein Total Protein Albumin Lipase Stool Leukocytes, Qual NEGATIVE C. difficile Tox B Gene POSITIVE A* C. difficile Toxin A&B Negative C. difficile Interpret SEE NOTE COVID-19 ([facility]) COVID-19 [employer] Com 04/24/21 04/24/21 04/25/21 20:16 21:34 06:54 WBC MCV 90.0 MCH 29.9 MCHC 33.2 RDW 13.9 Plt Count 250 D MPV 10.7 Immature Gran % (Auto) 0.4 Neut % (Auto) 72.3 Lymph % (Auto) 19.4 L [place] % (Auto) 4.8 Eos % (Auto) 2.7 Baso % (Auto) 0.4 Lymph # (Auto) 2.2 [place] # (Auto) 0.5 Eos # (Auto) 0.3 Baso # (Auto) 0.0 Abs Immat Gran (auto) 0.05 H Absolute Neuts (auto) 8.2 Absolute Nucleated RBC 0.000 Nucleated RBC % (auto) 0.0 Smear Tech's Comments Anion Gap Creatinine Estim Creat Clear Calc Estimated GFR POC Glucose Random Glucose Lactic Acid Lactic Acid Fup @ 2Hr Lactic Acid Fup @ 4Hr 1.9 Calcium Total Bilirubin AST ALT Alkaline Phosphatase Troponin I High Sens 16.6 D C-Reactive Protein Total Protein Albumin Lipase Stool Leukocytes, Qual C. difficile Tox B Gene C. difficile Toxin A&B C. difficile Interpret COVID-19 ([facility]) COVID-19 Clin Com Assessment and Plan (1) Clostridium difficile infection: Status: Acute Assessment and Plan: 61-year-old female with GERD, asthma was recently in [facility] for a wedding from 04/09/2021 until 04/18/2021.? She states that on 04/12/2021 she developed diarrhea and vomiting.? She was hospitalized for 2 days and treated with ciprofloxacin and Flagyl. She presented with persistent diarrhea and found to have C dif and ? SBPO C-dif associated diarrhea, severe in nature, seems better WBC down from 25 to 11 -She is on Vanco Po 500 mg Q6 in addition to IV Flagy, can probably simplify to 125 or 250 qid -Zofran for N/Vl ?Small-bowel obstruction:? NPO; IV fluids -NG if persistent vomitting, Hypokalemia due diarrhea, supplement given, repeat labd toda Lactic acidosis l Near Syncope: likely secondary dehydration from diarrhea, echo pending, no arrythmia on tele Quality Stroke Does the patient have a stroke diagnosis?: No VTE Prior VTE?: No VTE Risk Level:: Medical - low VTE Device Contraindication: N/A - Device Ordered VTE Drug Contraindication: Treatment Not Indicated
[2021-04-25 07:40] VITALS: BP 118/57; PULSE 72; RESP 18; TEMP 37.3; O2SAT 93
[2021-04-25 08:06] LABS: Alanine Aminotransferase 22 U/L (0-31); Albumin Level 3.2 g/dL (3.5-5.0); Alkaline Phosphatase 55 U/L (39-117); Amylase 29 U/L (28-100); Aspartate Amino Transferase 37 U/L (5-31); Bilirubin Direct 0.2 mg/dL (0.0-0.5); Bilirubin Total 0.5 mg/dL (0.0-1.0)
[2021-04-25] MEDS: 0.9 % Sodium Chloride Flush 3 ML SYRINGE IVFLUSH ×2 (08:08→15:16)
[2021-04-25] MEDS: Famotidine/PF 20 MG/2 ML VIAL IVPUSH ×2 (08:08→21:44)
--- NOTE | 2021-04-25 08:15 | PM.CNGS ---
History of Present Illness Consult details Consult date: 04/25/21 <Maude Ortiz PA-C - Last Filed: 04/25/21 11:10> Reason for consult: other (?SBO) <DUNIA Jordan Last Filed: 04/25/21 11:10> Requesting physician: Romario Anthony <DUNIA Jordan Last Filed: 04/25/21 11:10> Narrative: 61-year-old female who presented to the hospital with a chief complaint of profuse diarrhea. The patient reports [place] was [place] from 04/09/2021 until 04/18/2021.?On 04/12/2021 she developed diarrhea and vomiting and was hospitalized for 2 days and treated with ciprofloxacin and Flagyl.?She reports her diarrhea and abdominal pain improved slightly however on Wednesday the diarrhea began to worsen again and developed multiple episodes of loose watery stools. She denies any blood in the stool.? She also had multiple episodes of vomiting with the last episodes yesterday morning. She reports intermittent episodes of crampy abdominal pain in the epigastric area which has improved. Work up in the ED included CT scan dilatation of the mid through distal small bowel loops up to the terminal ileum with a transition point at the ileocecal valve with bowel wall thickening and mild enhancement of the small bowel loops and mild edema in the mesentery, concerning for high-grade small-bowel obstruction. She also had a lactic acidosis and C diff was positive. She was admitted to the medical service for treatment of C diff and started on Vanco and flagyl per GI recs. Lactic acidosis has resolved with IV hydration. Surgery was consulted for evaluation of the possible SBO. She reports no significant abdominal pain or distention currently. She continues with diarrhea. She does report a history of a laparoscopic cholecystectomy. <DUNIA Jordan Last Filed: 04/25/21 11:10> Review of Systems Constitutional: Constitutional: Denies chills and Denies fever(s) <DUNIA Jordan Last Filed: 04/25/21 11:10> ENT: Denies dizziness <DUNIA Jordan Last Filed: 04/25/21 11:10> Cardiovascular: Cardiovascular: Denies chest pain, Denies palpitations and Denies dyspnea <Maude Ortiz PA-C - Last Filed: 04/25/21 11:10> Respiratory: Respiratory: Denies cough and Denies dyspnea <Maude Ortiz PA-C - Last Filed: 04/25/21 11:10> Gastrointestinal: Gastrointestinal: Reports as per HPI <Maude Ortiz PA-C - Last Filed: 04/25/21 11:10> Genitourinary: Genitourinary: Denies hematuria <Maude Ortiz PA-C - Last Filed: 04/25/21 11:10> Integumentary/Breasts: Skin/Breast: Denies rash <Maude Ortiz PA-C - Last Filed: 04/25/21 11:10> Neurologic: Denies dizziness <Maude Ortiz PA-C - Last Filed: 04/25/21 11:10> Endocrine: Endocrine: Denies palpitations <Maude Ortiz PA-C - Last Filed: 04/25/21 11:10> [facility] Surgical History Surgical History: Surgical History (Updated 04/25/21 @ 10:23 by Maude Ortiz PA-C) History of laparoscopic cholecystectomy <Maude Ortiz PA-C - Last Filed: 04/25/21 11:10> Social History Social History: Social History Alcohol intake: current Alcohol intake frequency: a few times a month Patient Tobacco Use Status: Current everyday Tobacco user Tobacco use type: Cigarette Cigarette Packs Per Day: 0.5 Cigarettes Per Day: 10.0 Smoked in Last 30 Days: Yes Patient Interested in Nicotine Replacement: No Use of substances other than those prescribed or required for medical reasons: No Currently Displaying Signs/Symptoms of Drug Intoxication Withdrawal: No Have you been hit, kicked, punched, or otherwise hurt by someone within the past year? If so, by whom?: No Do you feel safe in your current relationship?: Yes Is there a partner from a previous relationship who is making you feel unsafe now?: No Are you made to feel afraid or neglected: No Advance Directives: No Advance Directives Information Provided: No Advance Directives on File: No Do you have thoughts of harming others: None Do you have a plan to hurt others: No Plan Recently lost weight without trying: No Nutrition Risks: Poor intake 0-25% >4 days Patient : No : No Poor oral hygiene: No service: No Current occupational status: other <Maude Ortiz PA-C - Last Filed: 04/25/21 11:10> Meds Allergies/Adverse reactions: Allergies Allergy/AdvReac Type Severity Reaction Status Date / Time amoxicillin [From AUGMENTIN] Allergy Mild NAUSEA & Verified 04/24/21 20:16 VOMITING clavulanic acid Allergy Mild NAUSEA & Verified 04/24/21 20:16 [From AUGMENTIN] VOMITING Penicillins [PCN] Allergy Mild HIVES Verified 04/24/21 20:16 Sulfa (Sulfonamide Allergy Mild HIVES Verified 04/24/21 20:16 Antibiotics) [SULFA (SULFONAMIDE ANTIBIOTICS)] <Maude Ortiz PA-C - Last Filed: 04/25/21 11:10> Active Medications: Current Medications Acetaminophen (Acetaminophen 325 Mg Tablet) 650 mg PO Q6H PRN PRN Reason: Pain, Mild (Pain Scale 1-3) Famotidine (Famotidine/Pf 20 Mg/2 Ml Vial) 20 mg IVPUSH BID [facility] Last Admin: 04/25/21 08:08 Dose: 20 mg Documented by: Hydromorphone HCl (Hydromorphone Hcl 0.5 Mg/0.5 Ml Syringe) 0.5 mg IVPUSH Q4H PRN; Protocol PRN Reason: Breakthrough Pain Potassium Chloride/Dextrose/Sod Cl () 40 meq in 1,000 mls @ 75 mls/hr IVCONT .[id number] [facility] Last Infusion: 04/25/21 08:08 Dose: 0 mls/hr Documented by: Metronidazole (Flagyl) 500 mg in 100 mls @ 100 mls/hr IV Q8H [facility] Last Infusion: 04/25/21 07:17 Dose: Infused Documented by: Melatonin (Melatonin 3 Mg Tablet) 6 mg PO BEDTIME PRN PRN Reason: Insomnia Senna (Sennosides 8.6 Mg Tablet) 17.2 mg PO BEDTIME PRN PRN Reason: Constipation Sodium Chloride (0.9 % Sodium Chloride Flush 3 Ml Syringe) 3 ml IVFLUSH QSHIFT [facility] Last Admin: 04/25/21 08:08 Dose: 3 ml Documented by: Vancomycin HCl (Vancomycin Hcl 125 Mg Capsule) 500 mg PO Q6H [facility] Last Admin: 04/25/21 05:45 Dose: 500 mg Documented by: <Maude Ortiz PA-C - Last Filed: 04/25/21 11:10> Home medications: Home Medications Medication Instructions Recorded Confirmed Last Taken Type albuterol sulfate 90 mcg/actuation 2 puff PO QID 04/24/21 04/24/21 Unknown History aerosol inhaler fluticasone 100 mcg-salmeterol 50 1 puff PO BID 04/24/21 04/24/21 Unknown History mcg/dose blistr powdr for inhalation (Advair Diskus) omeprazole 20 mg capsule,delayed 1 cap PO BID 04/24/21 04/24/21 04/24/21 History release <Maude Ortiz PA-C - Last Filed: 04/25/21 11:10> Physical Exam Vital Signs: Vital Signs: Last Vital Signs Temp 99.1 F 04/25/21 07:40 Pulse 72 04/25/21 07:40 Resp 18 04/25/21 07:40 BP 118/57 L 04/25/21 07:40 Pulse Ox 93 04/25/21 07:40 Body Mass Index 24.2 <Maude Ortiz PA-C - Last Filed: 04/25/21 11:10> Results Labs Result diagrams: : 04/25/21 06:54 04/25/21 06:54 <Maude Ortiz PA-C - Last Filed: 04/25/21 11:10> Labs: Abnormal lab results 04/24/21 04/24/21 04/24/21 Range/Units 15:46 16:18 16:18 WBC 25.1 H (4.8-10.8) X10*3/uL RBC (4.20-5.50) X10*6/uL Hct (37-47) % Immature Gran % (Auto) 0.6 H (0.0-0.4) % Neut % (Auto) 90.7 H (45-73) % Lymph % (Auto) 5.2 L (20-40) % Abs Immat Gran (auto) 0.15 H (0.00-0.03) X10*3/uL Absolute Neuts (auto) 22.7 H (2.0-8.3) X10*3/uL Sodium 146 H (135-145) mmol/L Potassium 2.7 L (3.3-5.1) mmol/L Anion Gap 22 H (12-20) BUN 8 L (9-16) mg/dL POC Glucose 165 H (60-115) mg/dL Random Glucose 173 H (60-115) mg/dL Lactic Acid (0.5-2.0) mmol/L Lactic Acid Fup @ 2Hr (0.5-2.0) mmol/L Calcium 7.4 L (8.4-10.2) mg/dL AST 34 H (5-31) U/L C-Reactive Protein 2.17 H (< or = 0.50) mg/dL Total Protein (6.5-8.0) g/dL Albumin (3.5-5.0) g/dL C. difficile Tox B Gene (Negative) 04/24/21 04/24/21 04/24/21 Range/Units 16:18 16:50 18:42 WBC (4.8-10.8) X10*3/uL RBC (4.20-5.50) X10*6/uL Hct (37-47) % Immature Gran % (Auto) (0.0-0.4) % Neut % (Auto) (45-73) % Lymph % (Auto) (20-40) % Abs Immat Gran (auto) (0.00-0.03) X10*3/uL Absolute Neuts (auto) (2.0-8.3) X10*3/uL Sodium (135-145) mmol/L Potassium (3.3-5.1) mmol/L Anion Gap (12-20) BUN (9-16) mg/dL POC Glucose (60-115) mg/dL Random Glucose (60-115) mg/dL Lactic Acid 4.0 H* (0.5-2.0) mmol/L Lactic Acid Fup @ 2Hr 4.5 H* (0.5-2.0) mmol/L Calcium (8.4-10.2) mg/dL AST (5-31) U/L C-Reactive Protein (< or = 0.50) mg/dL Total Protein (6.5-8.0) g/dL Albumin (3.5-5.0) g/dL C. difficile Tox B Gene POSITIVE A* (Negative) 04/25/21 04/25/21 Range/Units 06:54 06:54 WBC 11.3 H (4.8-10.8) X10*3/uL RBC 4.01 L D (4.20-5.50) X10*6/uL Hct 36.1 L D (37-47) % Immature Gran % (Auto) (0.0-0.4) % Neut % (Auto) (45-73) % Lymph % (Auto) 19.4 L (20-40) % Abs Immat Gran (auto) 0.05 H (0.00-0.03) X10*3/uL Absolute Neuts (auto) (2.0-8.3) X10*3/uL Sodium (135-145) mmol/L Potassium (3.3-5.1) mmol/L Anion Gap (12-20) BUN (9-16) mg/dL POC Glucose (60-115) mg/dL Random Glucose (60-115) mg/dL Lactic Acid (0.5-2.0) mmol/L Lactic Acid Fup @ 2Hr (0.5-2.0) mmol/L Calcium (8.4-10.2) mg/dL AST 37 H (5-31) U/L C-Reactive Protein (< or = 0.50) mg/dL Total Protein 5.0 L D (6.5-8.0) g/dL Albumin 3.2 L D (3.5-5.0) g/dL C. difficile Tox B Gene (Negative) Short CBC 04/24/21 04/25/21 Range/Units 16:18 06:54 WBC 25.1 H 11.3 H (4.8-10.8) X10*3/uL Hgb 15.1 12.0 D (12.0-16.0) g/dl Hct 45.9 36.1 L D (37-47) % Plt Count 365 250 D (160-400) X10*3/uL BMP 04/24/21 16:18 Sodium 146 H Potassium 2.7 L Chloride 99 Carbon Dioxide 28 BUN 8 L Creatinine 1.26 Calcium 7.4 L Liver Function 04/24/21 04/25/21 Range/Units 16:18 06:54 Total Bilirubin 0.7 0.5 (0.0-1.0) mg/dL Direct Bilirubin 0.2 (0.0-0.5) mg/dL AST 34 H 37 H (5-31) U/L ALT 31 22 (0-31) U/L Alkaline Phosphatase 81 55 D (39-117) U/L Albumin 4.3 3.2 L D (3.5-5.0) g/dL All other labs normal. <Maude Ortiz PA-C - Last Filed: 04/25/21 11:10> Assessment and Plan (1) Clostridium difficile infection: Status: Acute <Maude Ortiz PA-C - Last Filed: 04/25/21 11:10> patient seen and examined abd soft, not distended, mild diffuse tenderness clinically not obstructed treat for C diff infection exam benign will follow while in the hospital discussed my findings with the patient <Tu Dos Sanots MD - Last Filed: 04/25/21 14:58> (2) Acute dehydration: Status: Acute <Maude Ortiz PA-C - Last Filed: 04/25/21 11:10> 61 year old female admitted with diarrhea with recent abx use and hospitalization, found to be positive for C diff, with question of high grade SBO on CT scan. The patient is clinically appearing well. Her abdomen is very benign- soft, nondistended, nontender. She clinically does not appear obstructed at this time. Symptoms likely due to enteritis/C diff infection. She did have a lactic acidosis on presentation but that was likely due to hypovolemia from GI losses. Rec continuing treatment for C diff and supportive measures. Does not need NGT unless recurrent vomiting and abdominal distention occurs. Case discussed with Dr. Dos Santos. <Maude Ortiz PA-C - Last Filed: 04/25/21 11:10> Procedures Date of Service Date of Service: 04/25/21 <Maude Ortiz PA-C - Last Filed: 04/25/21 11:10>
[2021-04-25 08:27] LABS: Anion Gap 13 (12-20); Blood Urea Nitrogen 7 mg/dL (9-16); Calcium 5.6 mg/dL (8.4-10.2); Carbon Dioxide 24 mmol/L (22-29); Chloride 110 mmol/L (96-108); Creatinine Clr Calc Pharmacy 72.7; Estimated Glomerular Filt Rate > 60; Glucose Random 92 mg/dL (60-115); Sodium 144 mmol/L (135-145)
--- NOTE | 2021-04-25 09:30 | CA_ITS ---
Transthoracic Echocardiogram Patient (Last, First, Middle): Kelly Velasquez P Gender: Female Date of : 1960 Age: 61 Procedure Date: 04/25/2021 Procedure Type: Transthoracic Echocardiogram Location: [facility] – [place] Height: 167.64 cm Weight: 68.04 kg BSA: 1.77 m2 Heart Rate: bpm BP: 120 / 59 mmHg Sports Medicine Coordinator: Referring MD: Romario Anthony MD Symptoms: near syncope Study Quality: Good ECG Rhythm: Sinus Conclusions: - Normal left ventricular size and systolic function. - Normal right ventricular cavity size and systolic function. - No significant valvular or pericardial pathology. - There is mild dilatation of the ascending aorta measuring 3.20 cm. Findings Left Ventricle Normal left ventricular size and systolic function. There is mildly increased left ventricular wall thickness. The visually estimated ejection fraction is between 55-60%. There is no evidence of regional wall motion abnormalities. Diastolic function is normal for age. Right Ventricle Normal right ventricular cavity size and systolic function. Atria Both atria are normal in size. Aortic Valve Normal aortic valve structure and function. There is no aortic valve stenosis. There is no aortic valve regurgitation. Mitral Valve Normal mitral valve structure and function. There is trace mitral valve regurgitation. There is no mitral valve stenosis. Pulmonic Valve Normal pulmonic valve structure and function. There is trace pulmonic valve regurgitation. Tricuspid Valve Normal tricuspid valve structure. There is trace tricuspid valve regurgitation. Normal right atrial pressure. There is no evidence of pulmonary hypertension. Great Vessels There is mild dilatation of the ascending aorta measuring 3.20 cm. Venous The inferior vena cava is normal in size and collapses greater than 50% with inspiration. Pericardium/Pleural There is no evidence of pericardial effusion. Prior Study Comparison No prior study available for comparison. Measurements 2D Linear Measurements IVSd: 0.99 0.6-0.9/0.6-1.0 cm LVIDd: 4.95 3.9-5.3/4.2-5.9 cm LVIDd Index: 2.80 2.4-3.2/2.2-3.1 cm/m2 LVIDs: 2.75 2.0-3.6 cm LVPWd: 0.94 0.7-1.1 cm Ao Root: 3.40 2.1-3.5 cm LA Diam: 4.40 2.7-3.8/3.0-4.0 cm LAIDs Index: 2.49 1.5-2.3 cm/m2 LV Mass: 212.40 67-162/88-224 g LV Mass Index: 120.00 43-95/49-115 g/m2 LVOT Diam: 2.30 3.0+(-)1.3 cm Mitral Valve MV Pk E: 0.82 MV PK A: 0.68 MV Decel Time: 188.00 E/A: 1.20 E'Lateral: 12.90 E'Medial: 6.53 E/E' Med: 12.50 E/E' Lat: 6.30 PHT: 55.00 MVA PHT: 4.00 Decel [place]: 4.36 Aortic Valve AoV Pk Christopher: 1.54 AoV Mn Christopher: 0.91 AoV VTI: 0.31 AoV Pk Grad: 9.00 Aov Mn Grad: 4.00 VANGIE Cont.VTI: 2.55 LVOT LVOT Pk Christopher: 0.88 LVOT Mn Christopher: 0.61 LVOT VTI: 0.19 LVOT Pk Grad: 3.00 LVOT Mn Grad: 2.00 LVOT Diam: 2.30 LVOT Area: 4.15 Diastolic Function MV Pk E: 0.82 MV Pk A: 0.68 E/A: 1.20 E'Medial: 6.53 E/E' Med: 12.50 E' Laterial: 12.90 E/E' Lat: 6.30 Tricuspid Valve TR Pk Christopher: 2.23 TR Pk Grad: 20.00 Great Vessels Aorta Ao Root-2D: 3.40 2.0-3.7 cm Ao Asc: 3.20 2.1-3.4 cm Pulmonary Valve PV Pk Christopher: 0.98 Peak PV Grad: 4.00 Updated in Other Vendor System with Status of Final Soto Ramos MD electronically signed on 04/25/2021 12:43:11 PM with status of Final
--- NOTE | 2021-04-25 10:04 | MHC.CM.PN ---
pt lives c her in their home. she reports that she is independent in her care. 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 pt denies the need for vna at dc. dc plan is home no svcs. will transport at dc. cm to cont. to follow.
[2021-04-25 11:27] VITALS: BP 118/59; PULSE 66; RESP 16; TEMP 37; O2SAT 94
[2021-04-25 15:53] VITALS: BP 94/59; PULSE 67; RESP 14; TEMP 36.7; O2SAT 96
--- NOTE | 2021-04-25 16:51 | W.PM.IDCN ---
History of Present Illness Data of Consult Service Date: 04/25/21 Requesting physician: Jeremy Acevedo Primary Care Provider: Champ DUNAWAY Reason for consult: diarrhea She presents with diarrhea. She had been in [place] earlier in month She reports positive COVID and positive Cdiff Review of Systems Review of Systems: Yes all other systems are reviewed and are negative PMFSH Past Medical History Medical History C. difficile diarrhea Family History Family History Other IBD (inflammatory bowel disease) Family history: reviewed and not pertinent Surgical History Surgical History History of laparoscopic cholecystectomy Social History Social History Household Members: Spouse Housing: House Do you presently have visiting nurse or other home services: No Alcohol intake: current Alcohol intake frequency: holidays/special occasions only Patient Tobacco Use Status: Current everyday Tobacco user Tobacco use type: Cigarette Cigarette Packs Per Day: 0.5 Cigarettes Per Day: 10.0 service: No Current occupational status: employed and other Meds Allergies Allergy/AdvReac Type Severity Reaction Status Date / Time metronidazole [From Flagyl] Allergy Intermediate Rash Verified 04/28/21 11:24 amoxicillin [From AUGMENTIN] Allergy Mild NAUSEA & Verified 04/24/21 20:16 VOMITING clavulanic acid Allergy Mild NAUSEA & Verified 04/24/21 20:16 [From AUGMENTIN] VOMITING Penicillins [PCN] Allergy Mild HIVES Verified 04/24/21 20:16 Sulfa (Sulfonamide Allergy Mild HIVES Verified 04/24/21 20:16 Antibiotics) [SULFA (SULFONAMIDE ANTIBIOTICS)] Active Medications: Current Medications Acetaminophen (Acetaminophen 325 Mg Tablet) 650 mg PO Q6H PRN PRN Reason: Pain, Mild (Pain Scale 1-3) Famotidine (Famotidine/Pf 20 Mg/2 Ml Vial) 20 mg IVPUSH BID [facility] Last Admin: 04/25/21 08:08 Dose: 20 mg Documented by: Hydromorphone HCl (Hydromorphone Hcl 0.5 Mg/0.5 Ml Syringe) 0.5 mg IVPUSH Q4H PRN; Protocol PRN Reason: Breakthrough Pain Potassium Chloride/Dextrose/Sod Cl () 40 meq in 1,000 mls @ 75 mls/hr IVCONT .[id number] [facility] Last Admin: 04/25/21 15:09 Dose: 75 mls/hr Documented by: Metronidazole (Flagyl) 500 mg in 100 mls @ 100 mls/hr IV Q8H [facility] Last Infusion: 04/25/21 16:10 Dose: Infused Documented by: Melatonin (Melatonin 3 Mg Tablet) 6 mg PO BEDTIME PRN PRN Reason: Insomnia Senna (Sennosides 8.6 Mg Tablet) 17.2 mg PO BEDTIME PRN PRN Reason: Constipation Sodium Chloride (0.9 % Sodium Chloride Flush 3 Ml Syringe) 3 ml IVFLUSH QSHIFT [facility] Last Admin: 04/25/21 15:16 Dose: 3 ml Documented by: Vancomycin HCl (Vancomycin Hcl 125 Mg Capsule) 500 mg PO Q6H [facility] Last Admin: 04/25/21 16:10 Dose: 500 mg Documented by: Home Medications Medication Instructions Recorded Confirmed Last Taken Type albuterol sulfate 90 mcg/actuation 2 puff PO QID 04/24/21 05/13/21 Unknown History aerosol inhaler fluticasone 100 mcg-salmeterol 50 1 puff PO BID 04/24/21 05/13/21 05/12/21 History mcg/dose blistr powdr for inhalation (Advair Diskus) omeprazole 20 mg capsule,delayed 1 cap PO BID 04/24/21 05/13/21 05/12/21 History release clobetasol 0.05 % topical cream 1 appl TOPICAL BID 05/13/21 05/13/21 05/12/21 History Physical Exam Vital Signs: Vital Signs: Last Vital Signs Temp 98.0 F 04/25/21 15:53 Pulse 67 04/25/21 15:53 Resp 14 04/25/21 15:53 BP 94/59 L 04/25/21 15:53 Pulse Ox 96 04/25/21 15:53 Body Mass Index 24.2 Const: General: cooperative Eyes: General: appearance normal, both eyes and all related structures Resp: Effort & Inspection: normal respiratory effort Cardio: Rate: regular rate Rhythm: regular rhythm GI: Palpation (GI): Soft to palpation and nontender Skin: General skin exam: no rashes or lesions noted Results Labs CBC & Chem 7: 04/28/21 05:57 04/28/21 05:57 Labs: Short CBC 04/25/21 Range/Units 06:54 WBC 11.3 H (4.8-10.8) X10*3/uL Hgb 12.0 D (12.0-16.0) g/dl Hct 36.1 L D (37-47) % Plt Count 250 D (160-400) X10*3/uL BMP 04/24/21 04/25/21 16:18 06:54 Sodium 146 H 144 Potassium 2.7 L 3.0 L Chloride 99 110 H Carbon Dioxide 28 24 BUN 7 L Creatinine 0.77 Calcium 5.6 L* D Liver Function 04/25/21 Range/Units 06:54 Total Bilirubin 0.5 (0.0-1.0) mg/dL Direct Bilirubin 0.2 (0.0-0.5) mg/dL AST 37 H (5-31) U/L ALT 22 (0-31) U/L Alkaline Phosphatase 55 D (39-117) U/L Albumin 3.2 L D (3.5-5.0) g/dL Microbiology Microbiology Results: Microbiology 04/24/21 16:50 Stool Stool Culture - Preliminary Culture in progress. Assessment and Plan (1) Clostridium difficile infection: Status: Deleted She has dehydration She has Cdiff Po Vancomycin for 14 days May stop Flagyl (2) Acute dehydration: Status: Resolved
--- NOTE | 2021-04-25 18:57 | P.EN_ITS ---
Event Note Date of Service: 04/25/21 Event Note: GI Consult-Full note dictated-Hx via patient, , and EMR. Imp: C.diff enterocolitis with associated significant leukocytosis with bandemia, dehydration, transient lactic acidosis, and an apparent partial SBO on the CT scan. She has improved significantly over the past 24 hours after treatment with high dose po Vanco and IV Flagyl. Rec: Continue current treatment, F/U labs including chemistries and Calcium, and advance diet as tolerated. If things continue to improve over the next 24-48 hours I would stop the Flagyl and complete a 10-14 day course of Vanco 250mg QID. We did review that she may need an outpatient colonoscopy at some point to R/O underlying IBD. I would be happy to see her for that, as well as some reflux issues. However, it appears that she has had previous GI procedures through [facility] and also describes a possible upcoming appointment with a surgeon at [facility] to discuss hiatal hernia surgery. D/W patient and in detail. They seemed comfortable with this plan. Thanks.
[2021-04-25 19:28] VITALS: BP 118/82; PULSE 65; RESP 18; TEMP 36.6; O2SAT 98
--- NOTE | 2021-04-25 21:27 | CONS_ITS ---
DATE OF SERVICE: 04/25/2021 REASON FOR CONSULTATION: Abdominal pain, diarrhea, positive C difficile, and abnormal CT scan of GI tract. HISTORY OF PRESENT ILLNESS: This has been obtained from the patient, her , and the medical record. The patient is a 61-year-old female, who describes a longstanding history of irregular bowel movements that she describes were felt to be related to irritable bowel syndrome and possible lactose intolerance. She describes 1 or 2 previous colonoscopies done for what sounds like screening purposes, which were negative in the past. She also describes a long-standing history of reflux, for which she uses Nexium twice a day with fairly good relef. However, she describes a possible upcoming appointment with a surgeon in [place] to discuss hiatal hernia surgery. In addition to her colonoscopies in [place] done at [facility], she also describes a possible upper endoscopy, but is not very clear about the details. In any event, she was at her baseline good health up until going to the [facility] earlier this month. She went there for a wedding. After about 3 days there, she developed onset of persistent diarrhea with some abdominal cramping. She describes a hospitalization there and being treated with antibiotics for 2 to 3 days, although she did not take any further antibiotics after discharge. She was told of a urinary tract infection and a gastroenteritis. After coming home, she does report that she was feeling well for a day or two, but then her diarrhea and abdominal discomfort returned. This became quite severe over the day or two prior to admission with associated vomiting. She denies any hematochezia, melena, hematemesis nor coffee-grounds emesis. She denies any associated jaundice nor definitive fevers. She denies any previous history of colitis in herself, nor any family history of inflammatory bowel disease nor celiac disease. She does not use any chronic NSAIDs, tobacco, nor significant amounts of alcohol. As her symptoms worsened at home, she became weaker and had a syncopal episode at home, prompting her arrival in the ER. Her workup in the ER did reveal the positive stool for C difficile and a CT scan with inflammatory changes of the small bowel with what appeared to be a component of an obstruction and some possible inflammatory changes of the colon. She was started on p.o. vancomycin and IV Flagyl, and was admitted. Over the 24 hours, she has been in the hospital, she reports that she is definitely feeling much better. She is passing gas and stool. She has had no further vomiting. She is tolerating some p.o. liquids. Her abdominal pain is still present to a degree, but definitely much better. She has had no bleeding. MEDICATIONS: Her medications at home included albuterol inhaler p.r.n., Advair, and omeprazole. Her medications here in the hospital include vancomycin 500 mg p.o. q.i.d., Flagyl 500 mg IV q.8 hours, Zofran p.r.n., acetaminophen p.r.n., IV Pepcid, Dilaudid p.r.n., melatonin p.r.n. PAST MEDICAL HISTORY: Cholecystectomy. Tonsillectomy. Asthma. Gastroesophageal reflux. Irritable bowel syndrome. She denies any history of [place], diabetes, stroke, nor kidney disease. 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 She is . She does not smoke nor use any significant amounts of alcohol. FAMILY HISTORY: Noncontributory, although she does have a niece with Crohn disease. REVIEW OF SYSTEMS: CONSTITUTIONAL: She has been feeling weak and anorectic over the past couple weeks since she has been ill. SKIN: No rash. No pruritus. CARDIAC: No chest pain. PULMONARY: No coughing. No hemoptysis. GASTROINTESTINAL: As above. URINARY: No dysuria. No hematuria. NEUROLOGIC: No headache or seizures. PHYSICAL EXAMINATION: GENERAL: The patient is a pleasant, alert, comfortable appearing female, in no distress. She has been afebrile. SKIN: Warm and dry. HEENT: Anicteric sclerae. Moist mucous membranes. NECK: Supple. CHEST: Clear. CARDIAC: Normal S1 and S2. ABDOMEN: Soft, nondistended. Normal bowel sounds. She does have some mild diffuse tenderness, but without mass, rebound, or guarding. LABORATORY DATA: Stool was positive for C diff toxin B, COVID test was negative, stool for WBCs was negative, initial white count was 25,100 with 90% neutrophils and a repeat today was 11.3 with 72% neutrophils. Hemoglobin 12.0, platelets 250,000. PT 11.8 with INR 1.0. Sodium 144, potassium 3.0, chloride 110, CO2 of 24, BUN 7, creatinine 0.8. Initial electrolytes from yesterday showed a potassium of 2.7, BUN 8, creatinine 1.3. She had an elevated lactate of 4.0 and then repeat of 4.5 yesterday with the most recent lactate of 1.9 last evening. She did have a low calcium level of 5.6 today. Her LFTs were normal. Albumin 3.2, amylase 29, lipase 28. Her CT scan of the abdomen and pelvis from yesterday describes dilatation of the distal half of the small bowel up to the terminal ileum with an apparent transition point at the ileocecal valve, although without any sign of mass. There is some bowel wall thickening and inflammatory changes in the small bowel, most pronounced in the distal terminal ileum. There was some mild edema of the mesentery with a small amount of free fluid in that area as well. The colon had some submucosal fat deposits, but without any definitive active colitis. There was no free air nor intraabdominal abscess. An abdominal plain x-ray done today did not show any signs of obstruction nor free air. IMPRESSION: Given the patient's clinical history with positive C difficile, significant leukocytosis with a bandemia, initial lactic acidosis, the abnormalities seen on the CT scan, and her dehydration, I do suspect she had an associated C difficile enterocolitis, possibly related to the antibiotic she received while in the [facility]. At this point, she has had a significant improvement in just 24 hours after the high-dose oral vancomycin and IV Flagyl. As such, I would continue the current line of treatment for another 24 to 48 hours. I would continue follow up laboratories including her chemistries and calcium. I think her diet can be advanced slowly as tolerated. If things do continue to improve, then I would stop the IV Flagyl and complete a 10 to 14 day course of oral vancomycin at 250 mg q.i.d. I did review with her that at some point she may need a colonoscopy to definitively assess for any underlying inflammatory bowel disease. I do not think we need to do that as an inpatient. However, I did advise her that I would certainly be happy to follow her up as an outpatient. Although it does sound like she has had previous GI studies at [facility] and may receive followup care there after she follows up with her primary care physician after discharge. This has all been discussed in detail with the patient and her in detail. They are comfortable with this plan. Thank you for the consultation. MD TAMIKO Cleary/KENNA / [phone] [facility]
[2021-04-25 22:56] VITALS: BP 115/58; PULSE 67; RESP 18; TEMP 36.8; O2SAT 95
[2021-04-26 03:56] VITALS: BP 124/61; PULSE 66; RESP 18; TEMP 36.9; O2SAT 96
[2021-04-26] MEDS: vancomycin HCL 125 MG CAPSULE 500 MG PO ×4 (06:14→22:51)
[2021-04-26] MEDS: metroNIDAZOLE/NS 500 MG/100 ML PIGGYBACK 100 MG IV ×2 (06:14→14:45)
[2021-04-26 06:51] LABS: MANUAL DIFF FLAG NO
[2021-04-26 07:00] LABS: Basophils Percent Auto 0.5 % (0-2); Eosinophils Absolute Auto 0.4 X10*3/uL (0.0-0.4); Eosinophils Percent Auto 4.6 % (0-4); Hematocrit 33.1 % (37-47); Imm Gran Abs Auto 0.02 X10*3/uL (0.00-0.03); Imm Gran Pct Auto 0.3 % (0.0-0.4); Lymphocytes Absolute Auto 1.9 X10*3/uL (1.2-4.9); Lymphocytes Percent Auto 23.6 % (20-40); Mean Corpuscular HGB Conc 33.2 g/dl (31.0-35.0); Mean Corpuscular Hemoglobin 29.6 pg (27.0-33.0); Mean Platelet Volume 10.2 fL (9.4-12.3); Monocytes Absolute Auto 0.3 X10*3/uL (0.1-1.2); Monocytes Percent Auto 4.3 % (2-11); Neutrophils Absolute Auto 5.3 X10*3/uL (2.0-8.3); Neutrophils Percent Auto 66.7 % (45-73); Platelet Count 259 X10*3/uL (160-400); Red Blood Count 3.72 X10*6/uL (4.20-5.50); Red Cell Distribution Width 13.4 % (11.0-16.0)
[2021-04-26 07:44] LABS: Anion Gap 12 (12-20); Blood Urea Nitrogen 3 mg/dL (9-16); Calcium 5.7 mg/dL (8.4-10.2); Carbon Dioxide 24 mmol/L (22-29); Chloride 109 mmol/L (96-108); Creatinine Clr Calc Pharmacy 81.1; Estimated Glomerular Filt Rate > 60; Glucose Fasting 87 mg/dL (60-99); Potassium 2.7 mmol/L (3.3-5.1); Sodium 142 mmol/L (135-145)
[2021-04-26 08:00] VITALS: BP 129/72; PULSE 64; RESP 17; TEMP 36.6; O2SAT 95
[2021-04-26] MEDS: Famotidine/PF 20 MG/2 ML VIAL IVPUSH ×2 (09:02→22:40)
[2021-04-26] MEDS: 0.9 % Sodium Chloride Flush 3 ML SYRINGE IVFLUSH (09:02)
[2021-04-26] MEDS: KCl 40 mEq in 5% Dex/0.45% Sod 40 MEQ/1,000 ML IV.SOLN 75 MEQ IVCONT (09:02)
--- NOTE | 2021-04-26 11:09 | PM.PNGS ---
Subjective Subjective Date of Service: 04/26/21 Interval history: States she still have diarrhea Abdominal pain minimal Feels 1st rated Physical Exam Vital Signs: Vital Signs: Last Vital Signs Temp 97.8 F 04/26/21 08:00 Pulse 64 04/26/21 08:00 Resp 17 04/26/21 08:00 BP 129/72 04/26/21 08:00 Pulse Ox 95 04/26/21 08:00 Body Mass Index 24.2 Const: Other: Chemistry 04/24/21 04/25/21 04/26/21 16:18 06:54 06:30 Sodium 146 H 144 142 Potassium 2.7 L 3.0 L 2.7 L Carbon Dioxide 28 24 24 BUN 8 L 7 L 3 L D Creatinine 1.26 0.77 0.69 Calcium 7.4 L 5.6 L* D 5.7 L* 04/26/21 06:30 Sodium Potassium Carbon Dioxide BUN Creatinine Calcium Cancelled Hematology 04/24/21 04/25/21 04/26/21 16:18 06:54 06:30 WBC 25.1 H 11.3 H 8.0 Hgb 15.1 12.0 D 11.0 L Plt Count 365 250 D 259 General: no acute distress Resp: Effort & Inspection: normal respiratory effort Cardio: Rate: regular rate GI: Palpation (GI): Soft to palpation, not firm, nontender, no guarding and not rigid Procedures Date of Service Date of Service: 04/26/21 Progress Note: A&P Assessment and plan (1) Clostridium difficile infection: Status: Acute Assessment and Plan: Likely enterocolitis from C diff Continue current treatment Seen by GI Abdomen soft and benign Clinically not obstructed Replace potassium - losses from diarrhea Fall Risk Details Current Medications: Current Medications Acetaminophen (Acetaminophen 325 Mg Tablet) 650 mg PO Q6H PRN PRN Reason: Pain, Mild (Pain Scale 1-3) Famotidine (Famotidine/Pf 20 Mg/2 Ml Vial) 20 mg IVPUSH BID [facility] Last Admin: 04/26/21 09:02 Dose: 20 mg Documented by: Hydromorphone HCl (Hydromorphone Hcl 0.5 Mg/0.5 Ml Syringe) 0.5 mg IVPUSH Q4H PRN; Protocol PRN Reason: Breakthrough Pain Potassium Chloride/Dextrose/Sod Cl () 40 meq in 1,000 mls @ 75 mls/hr IVCONT .[id number] [facility] Last Admin: 04/26/21 09:02 Dose: 75 mls/hr Documented by: Metronidazole (Flagyl) 500 mg in 100 mls @ 100 mls/hr IV Q8H [facility] Last Infusion: 04/26/21 07:49 Dose: Infused Documented by: Melatonin (Melatonin 3 Mg Tablet) 6 mg PO BEDTIME PRN PRN Reason: Insomnia Senna (Sennosides 8.6 Mg Tablet) 17.2 mg PO BEDTIME PRN PRN Reason: Constipation Sodium Chloride (0.9 % Sodium Chloride Flush 3 Ml Syringe) 3 ml IVFLUSH QSHIFT [facility] Last Admin: 04/26/21 09:02 Dose: 3 ml Documented by: Vancomycin HCl (Vancomycin Hcl 125 Mg Capsule) 500 mg PO Q6H [facility] Last Admin: 04/26/21 09:19 Dose: 500 mg Documented by: Time Spent With Patient Time: Total time spent is greater than 50% in coordination of care (as documented) at patient's floor/unit and/or counseling patient: Time with patient: 15 - 24 minutes Quality Stroke Does the patient have a stroke diagnosis?: No VTE Prior VTE?: No VTE Risk Level:: Medical - low VTE Device Contraindication: N/A - Device Ordered VTE Drug Contraindication: Treatment Not Indicated
--- NOTE | 2021-04-26 11:12 | P.PNIM_ITS ---
Subjective Subjective Date of Service: 04/26/21 Interval History: F/u on Cdif assocated diarrhea, Still having frequent diarrhea, and some abdominal dicomfort Review of Systems no fever diarrhea mild abdominal pain Physical Exam Vital Signs: Vital Signs: Last Vital Signs Temp 97.8 F 04/26/21 08:00 Pulse 64 04/26/21 08:00 Resp 17 04/26/21 08:00 BP 129/72 04/26/21 08:00 Pulse Ox 95 04/26/21 08:00 Body Mass Index 24.2 Objective Data Active Medications Acetaminophen (Acetaminophen 325 Mg Tablet) 650 mg PO Q6H PRN PRN Reason: Pain, Mild (Pain Scale 1-3) Famotidine (Famotidine/Pf 20 Mg/2 Ml Vial) 20 mg IVPUSH BID [facility] Last Admin: 04/26/21 09:02 Dose: 20 mg Documented by: MARISOL Hydromorphone HCl (Hydromorphone Hcl 0.5 Mg/0.5 Ml Syringe) 0.5 mg IVPUSH Q4H PRN; Protocol PRN Reason: Breakthrough Pain Potassium Chloride/Dextrose/Sod Cl () 40 meq in 1,000 mls @ 75 mls/hr IVCONT .[id number] [facility] Last Admin: 04/26/21 09:02 Dose: 75 mls/hr Documented by: MARISOL Metronidazole (Flagyl) 500 mg in 100 mls @ 100 mls/hr IV Q8H [facility] Last Infusion: 04/26/21 07:49 Dose: 0 mls/hr Documented by: MARISOL Melatonin (Melatonin 3 Mg Tablet) 6 mg PO BEDTIME PRN PRN Reason: Insomnia Senna (Sennosides 8.6 Mg Tablet) 17.2 mg PO BEDTIME PRN PRN Reason: Constipation Sodium Chloride (0.9 % Sodium Chloride Flush 3 Ml Syringe) 3 ml IVFLUSH QSHIFT [facility] Last Admin: 04/26/21 09:02 Dose: 3 ml Documented by: MARISOL Vancomycin HCl (Vancomycin Hcl 125 Mg Capsule) 500 mg PO Q6H [facility] Last Admin: 04/26/21 09:19 Dose: 500 mg Documented by: MARISOL Labs CBC & Chem 7: 04/26/21 06:30 04/26/21 06:30 Labs: Laboratory Results - last 24 hr 04/26/21 04/26/21 04/26/21 06:30 06:30 06:30 MCV 89.0 MCH 29.6 MCHC 33.2 RDW 13.4 Plt Count 259 MPV 10.2 Immature Gran % (Auto) 0.3 Neut % (Auto) 66.7 Lymph % (Auto) 23.6 Orange % (Auto) 4.3 Eos % (Auto) 4.6 H Baso % (Auto) 0.5 Lymph # (Auto) 1.9 Orange # (Auto) 0.3 Eos # (Auto) 0.4 Baso # (Auto) 0.0 Abs Immat Gran (auto) 0.02 Absolute Neuts (auto) 5.3 Absolute Nucleated RBC 0.000 Nucleated RBC % (auto) 0.0 Anion Gap 12 Estim Creat Clear Calc 81.1 Estimated GFR > 60 Fasting Glucose 87 Calcium 5.7 L* Cancelled Microbiology Microbiology Results: Microbiology 04/24/21 16:50 Stool Culture - Preliminary Stool Culture in progress. 04/24/21 16:23 Blood Culture - Preliminary Blood - Venous No growth after 24 hours. 04/24/21 16:23 Blood Culture - Preliminary Blood - Venous No growth after 24 hours. Assessment and Plan (1) Clostridium difficile infection: Status: Acute Assessment and Plan: 61-year-old female with GERD, asthma was recently in [facility] [place] for a wedding from 04/09/2021 until 04/18/2021.? She states that on 04/12/2021 she developed diarrhea and vomiting.? She was hospitalized for 2 days and treated with ciprofloxacin and Flagyl. She presented with persistent diarrhea and found to have C dif and ? SBPO C-dif associated diarrhea, severe in nature, seems better WBC down from 25 to 11 -IV to prevent dehydration -She is on Vanco Po 500 mg Q6 in addition to IV Flagy, can probably simplify to 125 or 250 qid by tomorrow -Zofran for N/V ?Small-bowel obstruction:? clinically no obstruction, dilated probably for cdif, surgery following, advance diet Hypokalemia due diarrhea, IV and PO replacement, check mag Hypocalemia, low album, corrected 6.3, Calcium carbonate Lactic acidosis d/t c dif, no evidence of bowel ischemia Near Syncope: likely secondary dehydration from diarrhea, echo pending, no arrythmia on tele Quality Stroke Does the patient have a stroke diagnosis?: No VTE Prior VTE?: No VTE Risk Level:: Medical - low VTE Device Contraindication: N/A - Device Ordered VTE Drug Contraindication: Treatment Not Indicated
[2021-04-26 11:43] VITALS: BP 140/75; PULSE 63; RESP 18; TEMP 37.3; O2SAT 97
[2021-04-26 12:05] LABS: Magnesium < 0.7 mg/dL (1.6-2.6)
[2021-04-26] MEDS: Potassium Chloride Packet 20 MEQ PACKET 40 MEQ PO ×2 (12:20→19:49)
[2021-04-26] MEDS: Magnesium Sulfate/H2O 2 GM/50 ML PIGGYBACK IV ×4 (12:31→19:49)
[2021-04-26 15:37] VITALS: BP 114/55; PULSE 60; RESP 14; TEMP 36.6; O2SAT 97
[2021-04-26] MEDS: Acetaminophen 325 MG TABLET 650 MG PO (17:24)
[2021-04-26] MEDS: diphenhydrAMINE HCL 50 MG/ML VIAL 12.5 MG IVPUSH (18:14)
--- NOTE | 2021-04-26 18:47 | P.PNGI_ITS ---
Subjective Subjective Date of Service: 04/26/21 Interval History: Feeling somewhat better, although having BM's Q 1 hour. She describes less abdominal discomfort and no N/V. Afebrile. Critical Care Time (minutes): 0 Physical Exam Vital Signs: Vital Signs: Last Vital Signs Temp 97.9 F 04/26/21 15:37 Pulse 60 04/26/21 15:37 Resp 14 04/26/21 15:37 BP 114/55 L 04/26/21 15:37 Pulse Ox 97 04/26/21 15:37 Body Mass Index 24.2 Const: General: cooperative, healthy appearing, comfortable, no acute distress and well developed GI: Other: Abd- Soft, Nondistended, Mild diffuse tenderness, no m ass/rebound/guarding Objective Data Labs CBC & Chem 7: 04/26/21 06:30 04/26/21 06:30 Labs: Laboratory Results - last 24 hr 04/26/21 04/26/21 04/26/21 06:30 06:30 06:30 WBC 8.0 RBC 3.72 L Hgb 11.0 L Hct 33.1 L MCV 89.0 MCH 29.6 MCHC 33.2 RDW 13.4 Plt Count 259 MPV 10.2 Immature Gran % (Auto) 0.3 Neut % (Auto) 66.7 Lymph % (Auto) 23.6 [place] % (Auto) 4.3 Eos % (Auto) 4.6 H Baso % (Auto) 0.5 Lymph # (Auto) 1.9 [place] # (Auto) 0.3 Eos # (Auto) 0.4 Baso # (Auto) 0.0 Abs Immat Gran (auto) 0.02 Absolute Neuts (auto) 5.3 Absolute Nucleated RBC 0.000 Nucleated RBC % (auto) 0.0 Sodium 142 Potassium 2.7 L Chloride 109 H Carbon Dioxide 24 Anion Gap 12 BUN 3 L D Creatinine 0.69 Estim Creat Clear Calc 81.1 Estimated GFR > 60 Fasting Glucose 87 Calcium 5.7 L* Cancelled Magnesium < 0.7 L* Microbiology Microbiology Results: Microbiology 04/24/21 16:23 Blood - Venous Blood Culture - Preliminary No growth after 48 hours. 04/24/21 16:23 Blood - Venous Blood Culture - Preliminary No growth after 48 hours. 04/24/21 16:50 Stool Stool Culture - Preliminary Culture in progress. Procedures Date of Service Date of Service: 04/26/21 Progress Note: A&P Assessment and plan (1) Clostridium difficile infection: Status: Acute Assessment and Plan: Imp/Recs: C.diff enterocolitis clinically improving on current therapy with high dose po Vanco and IV Flagyl. Given ongoing diarrhea and her severe presentation, I would continue current line of treatment. However, I will advance her to clear liquids with toast and crackers. If things continue to improve I would then stop the IV Flagyl over the next 24 hours and then hopefully discharge her within another couple of days on po Vanco 250mg QID for another 10 days. Continue repletion of Calcium and Potassium, and F/U labs. D/W patient and her in detail. They are comfortable with this plan. Thanks Fall Risk Details Current Medications: Current Medications Acetaminophen (Acetaminophen 325 Mg Tablet) 650 mg PO Q6H PRN PRN Reason: Pain, Mild (Pain Scale 1-3) Last Admin: 04/26/21 17:24 Dose: 650 mg Documented by: Calcium Carbonate (Calcium Carbonate 500 Mg Tablet) 1,000 mg PO DAILY [facility] Last Admin: 04/26/21 12:19 Dose: 1,000 mg Documented by: Diphenhydramine HCl (Diphenhydramine Hcl 50 Mg/Ml Vial) 12.5 mg IVPUSH Q6H PRN PRN Reason: Allergic Reaction Last Admin: 04/26/21 18:14 Dose: 12.5 mg Documented by: Famotidine (Famotidine/Pf 20 Mg/2 Ml Vial) 20 mg IVPUSH BID [facility] Last Admin: 04/26/21 09:02 Dose: 20 mg Documented by: Hydromorphone HCl (Hydromorphone Hcl 0.5 Mg/0.5 Ml Syringe) 0.5 mg IVPUSH Q4H PRN; Protocol PRN Reason: Breakthrough Pain Potassium Chloride/Dextrose/Sod Cl () 40 meq in 1,000 mls @ 75 mls/hr IVCONT .[id number] [facility] Last Admin: 04/26/21 09:02 Dose: 75 mls/hr Documented by: Magnesium Sulfate (Magnesium Sulfate/H2o) 2 gm in 50 mls @ 25 mls/hr IV Q2H [facility] Stop: 04/26/21 21:29 Last Admin: 04/26/21 16:53 Dose: 25 mls/hr Documented by: Melatonin (Melatonin 3 Mg Tablet) 6 mg PO BEDTIME PRN PRN Reason: Insomnia Potassium Chloride (Potassium Chloride Packet 20 Meq Packet) 40 meq PO Q8H [facility] Stop: 04/26/21 19:16 Last Admin: 04/26/21 12:20 Dose: 40 meq Documented by: Senna (Sennosides 8.6 Mg Tablet) 17.2 mg PO BEDTIME PRN PRN Reason: Constipation Sodium Chloride (0.9 % Sodium Chloride Flush 3 Ml Syringe) 3 ml IVFLUSH QSHIFT [facility] Last Admin: 04/26/21 14:25 Dose: Not Given Documented by: Vancomycin HCl (Vancomycin Hcl 125 Mg Capsule) 500 mg PO Q6H [facility] Last Admin: 04/26/21 16:53 Dose: 500 mg Documented by: Time Spent With Patient Time: Total time spent is greater than 50% in coordination of care (as documented) at patient's floor/unit and/or counseling patient: Time with patient: 15 - 24 minutes Quality Stroke Does the patient have a stroke diagnosis?: No VTE Prior VTE?: No VTE Risk Level:: Medical - low VTE Device Contraindication: N/A - Device Ordered VTE Drug Contraindication: Treatment Not Indicated
[2021-04-26 18:54] LABS: Anion Gap 15 (12-20); Carbon Dioxide 21 mmol/L (22-29); Chloride 108 mmol/L (96-108); Magnesium 2.5 mg/dL (1.6-2.6); Potassium 3.1 mmol/L (3.3-5.1); Sodium 141 mmol/L (135-145)
[2021-04-26 19:06] VITALS: BP 141/64; PULSE 54; RESP 20; TEMP 36.7; O2SAT 97
--- NOTE | 2021-04-26 19:07 | PC.NURSE ---
1800 Pt complains of bilat ear swelling w/ erythema. At this time all IV's were paused. Tubing changed (D5 1/2 NS Kcl-and Magnesium). There was no tongue swelling nor was there any paresthesia. Integumentary system thoroughly checked, left AC area noted to have warm erythema from infiltration of mg+d5 1/2 NS 40 K, IV was pulled, 22 started right AC. Left AC erythema traced. MD was notified, states no more Flagyl. 12.5mg given in 22 right AC IV.
[2021-04-27] VITALS (7 sets, daily range): BP systolic 104–140; BP diastolic 53–92; PULSE 55–70; RESP 18–20; TEMP 35.9–37.2; O2SAT 95–99
[2021-04-27] MEDS: KCl 40 mEq in 5% Dex/0.45% Sod 40 MEQ/1,000 ML IV.SOLN 75 MEQ IVCONT ×2 (03:41→16:14)
[2021-04-27] MEDS: vancomycin HCL 125 MG CAPSULE 500 MG PO ×4 (04:23→23:29)
[2021-04-27] MEDS: Ibuprofen 200 MG TABLET PO (04:24)
[2021-04-27 06:57] LABS: MANUAL DIFF FLAG NO
[2021-04-27 07:03] LABS: Basophils Percent Auto 0.4 % (0-2); Eosinophils Absolute Auto 0.4 X10*3/uL (0.0-0.4); Eosinophils Percent Auto 4.6 % (0-4); Hematocrit 34.1 % (37.0-47.0); Hemoglobin 11.1 g/dl (12.0-16.0); Imm Gran Abs Auto 0.02 X10*3/uL (0.00-0.03); Imm Gran Pct Auto 0.3 % (0.0-0.4); Lymphocytes Absolute Auto 1.2 X10*3/uL (1.2-4.9); Lymphocytes Percent Auto 14.8 % (20-40); Mean Corpuscular HGB Conc 32.6 g/dl (31.0-35.0); Mean Corpuscular Hemoglobin 29.1 pg (27.0-33.0); Mean Corpuscular Volume 89.5 fL (80.0-98.0); Mean Platelet Volume 10.1 fL (9.4-12.3); Monocytes Absolute Auto 0.4 X10*3/uL (0.1-1.2); Monocytes Percent Auto 5.1 % (2-11); Neutrophils Absolute Auto 5.97 x10*3/uL (2.0-8.3); Neutrophils Percent Auto 74.8 % (45-73); Platelet Count 286 X10*3/uL (160-400); Red Blood Count 3.81 X10*6/uL (4.20-5.50); Red Cell Distribution Width 13.4 % (11.0-16.0)
[2021-04-27 07:58] LABS: Albumin Level 3.5 g/dL (3.5-5.0); Anion Gap 13 (12-20); Blood Urea Nitrogen < 2 mg/dL (9-16); Calcium 6.3 mg/dL (8.4-10.2); Carbon Dioxide 25 mmol/L (22-29); Chloride 110 mmol/L (96-108); Creatinine Clr Calc Pharmacy 91.8; Estimated Glomerular Filt Rate > 60; Glucose Fasting 104 mg/dL (60-99); Magnesium 2.7 mg/dL (1.6-2.6); Potassium 3.6 mmol/L (3.3-5.1); Sodium 144 mmol/L (135-145)
[2021-04-27] MEDS: 0.9 % Sodium Chloride Flush 3 ML SYRINGE IVFLUSH ×3 (08:49→23:30)
[2021-04-27] MEDS: Famotidine/PF 20 MG/2 ML VIAL IVPUSH (08:49)
--- NOTE | 2021-04-27 09:58 | HO.PM.IMPN ---
Subjective Subjective Date of Service: 04/27/21 Interval History: F/u on Cdif assocated diarrhea, less discomfort, persistent diarrhea but better, had some soort reaction last night with swollen ears, has phlebitis of left arm Review of Systems no fever diarrhea mild abdominal pain Physical Exam Vital Signs: Vital Signs: Last Vital Signs Temp 97.8 F 04/27/21 08:00 Pulse 60 04/27/21 08:00 Resp 18 04/27/21 08:00 BP 110/65 04/27/21 08:00 Pulse Ox 95 04/27/21 08:00 Body Mass Index 24.2 General: AO X 3, no acute distress mildly swollen ears, no lips or tongue swelling Resp: CTA bilateral CVS: S1,S2,RRR GI: +mild tenderness, +BS Skin: No rash, mild reness around left antecubital area Neuro: motor grossly intact Psych: appropriate affect Objective Data Active Medications Acetaminophen (Acetaminophen 325 Mg Tablet) 650 mg PO Q6H PRN PRN Reason: Pain, Mild (Pain Scale 1-3) Last Admin: 04/26/21 17:24 Dose: 650 mg Documented by: MARISOL Calcium Carbonate (Calcium Carbonate 500 Mg Tablet) 1,000 mg PO DAILY [facility] Last Admin: 04/27/21 08:49 Dose: 1,000 mg Documented by: THALIA Diphenhydramine HCl (Diphenhydramine Hcl 50 Mg/Ml Vial) 12.5 mg IVPUSH Q6H PRN PRN Reason: Allergic Reaction Last Admin: 04/26/21 18:14 Dose: 12.5 mg Documented by: MARISOL Famotidine (Famotidine/Pf 20 Mg/2 Ml Vial) 20 mg IVPUSH BID [facility] Last Admin: 04/27/21 08:49 Dose: 20 mg Documented by: THALIA Hydromorphone HCl (Hydromorphone Hcl 0.5 Mg/0.5 Ml Syringe) 0.5 mg IVPUSH Q4H PRN; Protocol PRN Reason: Breakthrough Pain Potassium Chloride/Dextrose/Sod Cl () 40 meq in 1,000 mls @ 75 mls/hr IVCONT .[id number] [facility] Last Admin: 04/27/21 03:41 Dose: 75 mls/hr Documented by: JANICE Melatonin (Melatonin 3 Mg Tablet) 6 mg PO BEDTIME PRN PRN Reason: Insomnia Senna (Sennosides 8.6 Mg Tablet) 17.2 mg PO BEDTIME PRN PRN Reason: Constipation Sodium Chloride (0.9 % Sodium Chloride Flush 3 Ml Syringe) 3 ml IVFLUSH QSHIFT [facility] Last Admin: 04/27/21 08:49 Dose: 3 ml Documented by: THALIA Vancomycin HCl (Vancomycin Hcl 125 Mg Capsule) 500 mg PO Q6H [facility] Last Admin: 04/27/21 04:23 Dose: 500 mg Documented by: JANICE Labs CBC & Chem 7: 04/27/21 06:31 04/27/21 06:31 Labs: Laboratory Results - last 24 hr 04/26/21 04/26/21 04/27/21 06:30 18:32 06:31 MCV 89.5 MCH 29.1 MCHC 32.6 RDW 13.4 Plt Count 286 MPV 10.1 Immature Gran % (Auto) 0.3 Neut % (Auto) 74.8 H Lymph % (Auto) 14.8 L [place] % (Auto) 5.1 Eos % (Auto) 4.6 H Baso % (Auto) 0.4 Lymph # (Auto) 1.2 [place] # (Auto) 0.4 Eos # (Auto) 0.4 Baso # (Auto) 0.0 Abs Immat Gran (auto) 0.02 Absolute Neuts (auto) 5.97 Absolute Nucleated RBC 0.000 Nucleated RBC % (auto) 0.0 Anion Gap 15 Estim Creat Clear Calc Estimated GFR Fasting Glucose Calcium Magnesium < 0.7 L* 2.5 Albumin 04/27/21 06:31 MCV MCH MCHC RDW Plt Count MPV Immature Gran % (Auto) Neut % (Auto) Lymph % (Auto) [place] % (Auto) Eos % (Auto) Baso % (Auto) Lymph # (Auto) [place] # (Auto) Eos # (Auto) Baso # (Auto) Abs Immat Gran (auto) Absolute Neuts (auto) Absolute Nucleated RBC Nucleated RBC % (auto) Anion Gap 13 Estim Creat Clear Calc 91.8 Estimated GFR > 60 Fasting Glucose 104 H Calcium 6.3 L D Magnesium 2.7 H Albumin 3.5 Microbiology Microbiology Results: Microbiology 04/24/21 16:50 Stool Culture - Preliminary Stool Culture in progress. 04/24/21 16:23 Blood Culture - Preliminary Blood - Venous No growth after 48 hours. 04/24/21 16:23 Blood Culture - Preliminary Blood - Venous No growth after 48 hours. Assessment and Plan (1) Clostridium difficile infection: Status: Acute Assessment and Plan: 61-year-old female with GERD, asthma was recently in [facility] for a wedding from 04/09/2021 until 04/18/2021.? She states that on 04/12/2021 she developed diarrhea and vomiting.? She was hospitalized for 2 days and treated with ciprofloxacin and Flagyl. She presented with persistent diarrhea and found to have C dif and ? SBPO C-dif associated diarrhea/enterocolitis, severe in nature, improving -IVf to prevent dehydration -She is on Vanco Po 500 mg Q6, seemed to have reacted to Flagyl so stopped -GI input noted -Zofran for N/V ?Small-bowel obstruction:? clinically no obstruction, dilated probably for cdif, surgery following, advance diet Hypokalemia due diarrhea, IV and PO replacement, presently normal Hypomagnesemia--corrected and normal now Hypocalemia, low album, corrected 6.3, Calcium carbonate Lactic acidosis d/t c dif, no evidence of bowel ischemia Near Syncope: likely secondary dehydration from diarrhea, echo pending, no arrythmia can come off tele Benadryl for allergic reaction Phlebitis of the left arm, heat compression Quality Stroke Does the patient have a stroke diagnosis?: No VTE Prior VTE?: No VTE Risk Level:: Medical - low VTE Device Contraindication: N/A - Device Ordered VTE Drug Contraindication: Treatment Not Indicated
--- NOTE | 2021-04-27 11:30 | PM.PNGS ---
Subjective Subjective Date of Service: 04/27/21 Interval history: Diarrhea resolved Feels much better No abdominal pain Physical Exam Vital Signs: Vital Signs: Last Vital Signs Temp 97.8 F 04/27/21 08:00 Pulse 60 04/27/21 08:00 Resp 18 04/27/21 08:00 BP 110/65 04/27/21 08:00 Pulse Ox 95 04/27/21 08:00 Body Mass Index 24.2 Const: General: comfortable and no acute distress Resp: Effort & Inspection: normal respiratory effort Cardio: Rate: regular rate GI: Palpation (GI): Soft to palpation, not firm and nontender Procedures Date of Service Date of Service: 04/27/21 Progress Note: A&P Assessment and plan (1) Clostridium difficile infection: Status: Acute Assessment and Plan: With enterocolitis Diarrhea resolved No pain or tenderness The rest of management as per hospitalist service Fall Risk Details Current Medications: Current Medications Acetaminophen (Acetaminophen 325 Mg Tablet) 650 mg PO Q6H PRN PRN Reason: Pain, Mild (Pain Scale 1-3) Last Admin: 04/26/21 17:24 Dose: 650 mg Documented by: Calcium Carbonate (Calcium Carbonate 500 Mg Tablet) 1,000 mg PO DAILY [facility] Last Admin: 04/27/21 08:49 Dose: 1,000 mg Documented by: Diphenhydramine HCl (Diphenhydramine Hcl 50 Mg/Ml Vial) 12.5 mg IVPUSH Q6H PRN PRN Reason: Allergic Reaction Last Admin: 04/26/21 18:14 Dose: 12.5 mg Documented by: Famotidine (Famotidine/Pf 20 Mg/2 Ml Vial) 20 mg IVPUSH BID [facility] Last Admin: 04/27/21 08:49 Dose: 20 mg Documented by: Hydromorphone HCl (Hydromorphone Hcl 0.5 Mg/0.5 Ml Syringe) 0.5 mg IVPUSH Q4H PRN; Protocol PRN Reason: Breakthrough Pain Potassium Chloride/Dextrose/Sod Cl () 40 meq in 1,000 mls @ 75 mls/hr IVCONT .[id number] [facility] Last Admin: 04/27/21 03:41 Dose: 75 mls/hr Documented by: Melatonin (Melatonin 3 Mg Tablet) 6 mg PO BEDTIME PRN PRN Reason: Insomnia Senna (Sennosides 8.6 Mg Tablet) 17.2 mg PO BEDTIME PRN PRN Reason: Constipation Sodium Chloride (0.9 % Sodium Chloride Flush 3 Ml Syringe) 3 ml IVFLUSH QSHIFT [facility] Last Admin: 04/27/21 08:49 Dose: 3 ml Documented by: Vancomycin HCl (Vancomycin Hcl 125 Mg Capsule) 500 mg PO Q6H [facility] Last Admin: 04/27/21 04:23 Dose: 500 mg Documented by: Time Spent With Patient Time: Total time spent is greater than 50% in coordination of care (as documented) at patient's floor/unit and/or counseling patient: Time with patient: 15 - 24 minutes Quality Stroke Does the patient have a stroke diagnosis?: No VTE Prior VTE?: No VTE Risk Level:: Medical - low VTE Device Contraindication: N/A - Device Ordered VTE Drug Contraindication: Treatment Not Indicated
[2021-04-27] MEDS: Omeprazole 20 MG CAPSULE.DR PO (14:55)
--- NOTE | 2021-04-27 15:02 | P.PNGI_ITS ---
Subjective Subjective Date of Service: 04/27/21 Interval History: present. Continues to feel better except having increased reflux despite the IV Pepcid(she takes Nexium BID at home). However, she denies any significant abdominal pain nor N/V. She reports that her BM's are much less. Tolerating clear liquids. She is hungry. Critical Care Time (minutes): 0 Physical Exam Vital Signs: Vital Signs: Last Vital Signs Temp 97.2 F 04/27/21 11:30 Pulse 63 04/27/21 11:30 Resp 18 04/27/21 11:30 BP 104/53 L 04/27/21 11:30 Pulse Ox 98 04/27/21 11:30 Body Mass Index 24.2 Const: General: cooperative, healthy appearing, comfortable, no acute distress, well developed and alert GI: Other: Abd-soft, NT, Nondistended, +BS, no mass, no rebound/guarding Objective Data Labs CBC & Chem 7: 04/27/21 06:31 04/27/21 06:31 Labs: Laboratory Results - last 24 hr 04/26/21 04/27/21 04/27/21 18:32 06:31 06:31 WBC 8.0 RBC 3.81 L Hgb 11.1 L Hct 34.1 L MCV 89.5 MCH 29.1 MCHC 32.6 RDW 13.4 Plt Count 286 MPV 10.1 Immature Gran % (Auto) 0.3 Neut % (Auto) 74.8 H Lymph % (Auto) 14.8 L [place] % (Auto) 5.1 Eos % (Auto) 4.6 H Baso % (Auto) 0.4 Lymph # (Auto) 1.2 [place] # (Auto) 0.4 Eos # (Auto) 0.4 Baso # (Auto) 0.0 Abs Immat Gran (auto) 0.02 Absolute Neuts (auto) 5.97 Absolute Nucleated RBC 0.000 Nucleated RBC % (auto) 0.0 Sodium 141 144 Potassium 3.1 L 3.6 Chloride 108 110 H Carbon Dioxide 21 L 25 Anion Gap 15 13 BUN < 2 L Creatinine 0.61 Estim Creat Clear Calc 91.8 Estimated GFR > 60 Fasting Glucose 104 H Calcium 6.3 L D Magnesium 2.5 2.7 H Albumin 3.5 Microbiology Microbiology Results: Microbiology 04/24/21 16:50 Stool Stool Culture - Preliminary Culture in progress. 04/24/21 16:23 Blood - Venous Blood Culture - Preliminary No growth after 48 hours. 04/24/21 16:23 Blood - Venous Blood Culture - Preliminary No growth after 48 hours. Procedures Date of Service Date of Service: 04/27/21 Progress Note: A&P Assessment and plan (1) Clostridium difficile infection: Status: Acute Assessment and Plan: Imp/Recs: She continues to improve from a clinical standpoint. Continue the po Vanco. Advance diet to regular with lactose-free restriction for 04/28 if stable. If tolerates diet and is comfortable she can probably go home later in the day on 04/28 or 04/29 as long as her chemistries are stable. I would send her home on Vanco 250mg QID for 10 days. We did discuss potential for relapse of C.diff and need for F/U stool specimens if need be. She and her were comfortable with this plan. Thanks. Fall Risk Details Current Medications: Current Medications Acetaminophen (Acetaminophen 325 Mg Tablet) 650 mg PO Q6H PRN PRN Reason: Pain, Mild (Pain Scale 1-3) Last Admin: 04/26/21 17:24 Dose: 650 mg Documented by: Calcium Carbonate (Calcium Carbonate 500 Mg Tablet) 1,000 mg PO DAILY [facility] Last Admin: 04/27/21 08:49 Dose: 1,000 mg Documented by: Diphenhydramine HCl (Diphenhydramine Hcl 50 Mg/Ml Vial) 12.5 mg IVPUSH Q6H PRN PRN Reason: Allergic Reaction Last Admin: 04/26/21 18:14 Dose: 12.5 mg Documented by: Hydromorphone HCl (Hydromorphone Hcl 0.5 Mg/0.5 Ml Syringe) 0.5 mg IVPUSH Q4H PRN; Protocol PRN Reason: Breakthrough Pain Potassium Chloride/Dextrose/Sod Cl () 40 meq in 1,000 mls @ 75 mls/hr IVCONT .[id number] [facility] Last Admin: 04/27/21 03:41 Dose: 75 mls/hr Documented by: Melatonin (Melatonin 3 Mg Tablet) 6 mg PO BEDTIME PRN PRN Reason: Insomnia Omeprazole (Omeprazole 20 Mg Ulices.) 20 mg PO DAILY@0630 [facility] Last Admin: 04/27/21 14:55 Dose: 20 mg Documented by: Senna (Sennosides 8.6 Mg Tablet) 17.2 mg PO BEDTIME PRN PRN Reason: Constipation Sodium Chloride (0.9 % Sodium Chloride Flush 3 Ml Syringe) 3 ml IVFLUSH QSHIFT [facility] Last Admin: 04/27/21 08:49 Dose: 3 ml Documented by: Vancomycin HCl (Vancomycin Hcl 125 Mg Capsule) 500 mg PO Q6H [facility] Last Admin: 04/27/21 11:32 Dose: 500 mg Documented by: Time Spent With Patient Time: Total time spent is greater than 50% in coordination of care (as documented) at patient's floor/unit and/or counseling patient: Time with patient: 15 - 24 minutes Quality Stroke Does the patient have a stroke diagnosis?: No VTE Prior VTE?: No VTE Risk Level:: Medical - low VTE Device Contraindication: N/A - Device Ordered VTE Drug Contraindication: Treatment Not Indicated
[2021-04-28 02:59] VITALS: BP 125/72; PULSE 58; RESP 20; TEMP 36.2; O2SAT 93
[2021-04-28] MEDS: vancomycin HCL 125 MG CAPSULE 500 MG PO ×2 (04:45→12:12)
[2021-04-28] MEDS: Omeprazole 20 MG CAPSULE.DR PO (04:45)
[2021-04-28 06:26] LABS: MANUAL DIFF FLAG NO
[2021-04-28 06:42] LABS: Calcium 7.5 mg/dL (8.4-10.2); Magnesium 2.3 mg/dL (1.6-2.6)
[2021-04-28 06:43] LABS: Anion Gap 11 (12-20); Blood Urea Nitrogen < 2 mg/dL (9-16); Calcium 7.4 mg/dL (8.4-10.2); Carbon Dioxide 26 mmol/L (22-29); Chloride 110 mmol/L (96-108); Creatinine Clr Calc Pharmacy 94.9; Estimated Glomerular Filt Rate > 60; Glucose Random 94 mg/dL (60-115); Sodium 143 mmol/L (135-145)
[2021-04-28 06:46] LABS: Basophils Percent Auto 0.5 % (0-2); Eosinophils Absolute Auto 0.5 X10*3/uL (0.0-0.4); Eosinophils Percent Auto 7.2 % (0-4); Hematocrit 36.1 % (37.0-47.0); Hemoglobin 11.8 g/dl (12.0-16.0); Imm Gran Abs Auto 0.03 X10*3/uL (0.00-0.03); Imm Gran Pct Auto 0.5 % (0.0-0.4); Lymphocytes Absolute Auto 1.4 X10*3/uL (1.2-4.9); Lymphocytes Percent Auto 21.6 % (20-40); Mean Corpuscular HGB Conc 32.7 g/dl (31.0-35.0); Mean Corpuscular Hemoglobin 29.4 pg (27.0-33.0); Mean Platelet Volume 10.2 fL (9.4-12.3); Monocytes Absolute Auto 0.4 X10*3/uL (0.1-1.2); Monocytes Percent Auto 5.3 % (2-11); Neutrophils Absolute Auto 4.26 x10*3/uL (2.0-8.3); Neutrophils Percent Auto 64.9 % (45-73); Platelet Count 310 X10*3/uL (160-400); Red Blood Count 4.01 X10*6/uL (4.20-5.50); Red Cell Distribution Width 13.4 % (11.0-16.0); White Blood Count 6.6 X10*3/uL (4.8-10.8)
[2021-04-28 07:27] VITALS: BP 111/70; PULSE 59; RESP 18; TEMP 36.6; O2SAT 99
[2021-04-28] MEDS: 0.9 % Sodium Chloride Flush 3 ML SYRINGE IVFLUSH (09:08)
--- NOTE | 2021-04-28 09:39 | MHC.CM.PN ---
dc plan is home no svcs. cm to cont. to follow.
[2021-04-28 11:01] VITALS: BP 151/77; PULSE 65; RESP 18; TEMP 18.3; O2SAT 98
--- NOTE | 2021-04-28 11:03 | P.DS_ITS ---
DS: Providers Provider Date of Service: 04/28/21 Date of admission: 04/24/21 19:58 Primary care physician: Champ Yusuf Consults: 04/24/21 19:55 Consult to Gastroenterology Routine Consulting Provider: Gene Crowe Reason for consultation: c diff; SBO; diarrhea Consult to General Surgery Routine Consulting Provider: Kalli Smith Reason for consultation: high grade SBO 04/24/21 20:01 Consult to Infectious Diseases Routine Consulting Provider: Nisha Loyola Reason for consultation: C diff infection; ?oral thrush DS: Diagnosis Discharge Diagnosis (1) Clostridium difficile infection: Status: Acute DS: Summary Hospital Course Hospital Course: Chief Complaint: Diarrhea 61-year-old female with a past medical history of GERD, question irritable bowel syndrome; presented to the hospital with a chief complaint of diarrhea. Patient reported that she had diarrhea about 2 weeks ago and has seen the PCP who were thinking she probably had interval bowel syndrome. Mentioned that she went to [facility] for travel and had question talus diarrhea/UTI and was admitted to the hospital for 2 days and was on Cipro and Flagyl.? At the time she also was noted to have oral thrush. She returned? from [facility] on last Wednesday; from Wednesday she started to have diarrhea which was initially few episodes but today she has multiple episodes of loose watery stools; denies any blood in the stool.? Also had multiple episodes of vomiting; denies any blood in the vomitus. Complains of intermittent episodes of crampy abdominal pain which is also on its own. Denies any numbness tingling or focal weakness. Today when she was having a bowel movement she felt lightheaded and dizzy and also chills; denies any fall or loss of consciousness.? Denies any chest pain or palpitations. Currently denies any lightheadedness dizziness or chest pains. Denies any urinary symptoms. Review of all other systems is negative except mentioned above ER course: Per ER team patient noted to be dry; on labs noted to have lactic acidosis; on CT abdomen noted to have high-grade small-bowel obstruction; C diff positive; ER team discussed with Dr. Crowe from Gastroenterology who recommended to give the patient 250 mg of p.o. vancomycin-also concern for possible inflammatory bowel disease undiagnosed, be evaluated in the morning. ER team also spoke to Gastroenterology who mentioned no acute surgery needed, recommended treating C diff.? admission to Medicine Service. Hospital course: C-dif associated diarrhea/enterocolitis that was very severe and associated with profuse and very frequent diarrhea that led to marked dehydration, potassium and magnesium loss. While in the hospital treated with agresive IVF hydration, IV Flagyl and high dose of oral Vancomycin 500 QID, Flagyl was later dc'ed due to likely allergy, she was seen by GI Dr. Weeks who guided us with care. Over the course, WBC has normalized from 25K to now 6 K, diarrhea has marked slowed down, diet has been advanced to regulard diet and she's tolerating this. She was also seen by Surgery for ? bowel obstruction and this was believed to part of enterocolitis and no radha obstruction Hypokalemia due diarrhea, potassium has been replaced with IV and Oral potassium, along with magnesium Hypomagnesemia--corrected and normal now Hypocalemia, low album, corrected 6.3, Calcium carbonate Lactic acidosis d/t c dif, no evidence of bowel ischemia Near Syncope: likely secondary dehydration from diarrhea, there was no arrythmia. Echo showed normal EF, normal LV Time Spent with Patient Time attestation: Total time spent providing and/or coordinating discharge services: Discharge coordination time: Greater than 30 minutes Quality: Stroke Does the patient have a stroke diagnosis?: No Physical Exam Vital Signs: Vital Signs: Last Vital Signs Temp 65 F L 04/28/21 11:01 Pulse 65 04/28/21 11:01 Resp 18 04/28/21 11:01 BP 151/77 H 04/28/21 11:01 Pulse Ox 98 04/28/21 11:01 Body Mass Index 24.2 General: AO X 3, no acute distress Resp: CTA bilateral CVS: S1,S2,RRR GI: +BS, NT, no distention Skin: No rash Neuro: motor grossly intact Psych: appropriate affect DS: Data Data Completed and Pending Labs on day of discharge: Laboratory Results - last 24 hr 04/28/21 04/28/21 04/28/21 05:57 05:57 05:57 WBC 6.6 RBC 4.01 L Hgb 11.8 L Hct 36.1 L MCV 90.0 MCH 29.4 MCHC 32.7 RDW 13.4 Plt Count 310 MPV 10.2 Immature Gran % (Auto) 0.5 H Neut % (Auto) 64.9 Lymph % (Auto) 21.6 [place] % (Auto) 5.3 Eos % (Auto) 7.2 H Baso % (Auto) 0.5 Lymph # (Auto) 1.4 [place] # (Auto) 0.4 Eos # (Auto) 0.5 H Baso # (Auto) 0.0 Abs Immat Gran (auto) 0.03 Absolute Neuts (auto) 4.26 Absolute Nucleated RBC 0.000 Nucleated RBC % (auto) 0.0 Sodium 143 Potassium 4.0 Chloride 110 H Carbon Dioxide 26 Anion Gap 11 L BUN < 2 L Creatinine 0.59 Estim Creat Clear Calc 94.9 Estimated GFR > 60 Random Glucose 94 Calcium 7.4 L D 7.5 L Magnesium 2.3 Preliminary micro results at discharge 04/24/21 16:50 Stool Culture - Preliminary Stool Culture in progress. 04/24/21 16:23 Blood Culture - Preliminary Blood - Venous No growth after 48 hours. 04/24/21 16:23 Blood Culture - Preliminary Blood - Venous No growth after 48 hours. Discharge Plan Discharge Patient Disposition: Home, Self-Care Discharge Diagnosis: C dif enterocolitis Referrals: Champ Yusuf [Primary Care Provider] - 1 Week Discharge Medications: New vancomycin 250 mg capsule 250 mg PO QID Qty: 40 RF: 0 Continued omeprazole 20 mg capsule,delayed release(DR/EC) 1 cap PO BID RF: 0 fluticasone propion-salmeterol [Advair Diskus] 100-50 mcg/dose blister with device 1 puff PO BID RF: 0 albuterol sulfate 90 mcg/actuation HFA aerosol inhaler 2 puff PO QID RF: 0 Diet: advance to usual diet Activity on Discharge: As tolerated Stand Alone Forms: Patient Portal Discharge page Care Plan Goals: Full recovery from C dif enterocolitis Health Concerns: C dif enterocolitis, diarrhea Plan of Treatment: Take Vancomycin as recommended and follow up with your Doctor in a week, drink plenty of fluid Assessment: As above
== END 2021-04-28 14:27 | disposition home or self-care (01) | DRG 248 ==
LOC: HO.ED 19:36 → HO.EDOVER 20:35 → HO.IMC 21:44
PROVIDERS: Internal Medicine; Admitting Provider Hospitalist; Emergency Provider Emergency Medicine Emergency Medical Services; PCP Hospitalist; Visit Provider Internal Medicine
DX: A04.72 Enterocolitis due to Clostridium difficile, not specified as recurrent (principal); K56.609 Unspecified intestinal obstruction, unspecified as to partial versus complete obstruction; E87.2 Acidosis; E86.0 Dehydration; F17.210 Nicotine dependence, cigarettes, uncomplicated; E87.6 Hypokalemia; D72.829 Elevated white blood cell count, unspecified; E83.51 Hypocalcemia; K21.9 Gastro-esophageal reflux disease without esophagitis; Z20.822 Contact with and (suspected) exposure to COVID-19; Z71.6 Tobacco abuse counseling; Z88.0 Allergy status to penicillin; Z88.2 Allergy status to sulfonamides; Z79.51 Long term (current) use of inhaled steroids; Z79.899 Other long term (current) drug therapy
CPT/HCPCS: 36415; 74022; 74177; 80048; 80051; 80053; 80076; 82040; 82150; 82310; 82947; 83605; 83690; 83735; 84484; 85025; 85610; 86140; 87015; 87040; 87045; 87046; 87077; 87177; 87207; 87209; 87272; 87324; 87493; 87635; 89055; 93005; 93306; 94640; 94644; 96361; 96365; 96366; 96375; 99285; J1200; J1885; J2405; J3475; Q9967

== ENCOUNTER 2021-05-13 08:03 | Inpatient (IN) | payer MEDICAID, SELFPAY ==
--- NOTE | ~2021-05-13 | CT_ITS ---
EXAMINATION: CT ABDOMEN AND PELVIS WITH CONTRAST CLINICAL INFORMATION: Abdominal/epigastric pain. COMPARISON: CT abdomen pelvis 04/24/2021. TECHNIQUE: Multidetector volumetric images were obtained from the superior aspect of the liver through the pubic symphysis following administration 85 mL of Omnipaque 350 intravenous contrast. Sagittal and coronal reformatted images were obtained on the technologist's workstation. Oral contrast: No This CT examination was performed using dose optimization techniques as appropriate, variously including the following: *Automated exposure control *Adjustment of mA and/or kV according to patient size (this includes techniques or standardized protocols for targeted exams where dose is matched to indication/reason for exam; i.e. extremities or head) *Use of iterative reconstruction technique DLP: 726 mGy-cm FINDINGS: LUNG BASES: The lung bases are clear. The heart size is normal. LIVER, GALLBLADDER, AND BILIARY TREE: The liver is normal in size, shape, and attenuation. No focal hepatic lesion or biliary ductal dilatation is present. The gallbladder has been surgically removed. PANCREAS: Unremarkable. SPLEEN: Unremarkable. ADRENAL GLANDS: Unremarkable. KIDNEYS AND URETERS: The kidneys are normal in size, shape, and attenuation. No hydronephrosis, hydroureter, or calculi seen. No perinephric stranding. BLADDER: Unremarkable. GASTROINTESTINAL TRACT: There is scattered fluid and stool seen throughout the colon most prominent in the cecum region with a low-lying cecum in mid pelvis. There is nonspecific mild mural thickening involving the terminal ileum and distal ileal loops, best visualized on the axial image 60/3 the jejunal loops appear normal caliber. Few scattered prominent mesenteric lymph nodes are seen. ABDOMINAL WALL: Small umbilical hernia containing fat. LYMPH NODES: Normal. VASCULAR: Unremarkable. PELVIC VISCERA: Unremarkable. OSSEOUS STRUCTURES: Unremarkable. CT/CT abdomen pelvis w con IMPRESSION: Mild mural thickening involving the ileal loops including distal ileum with fluid suggestive of small bowel enteritis. There is no suggestion for bowel obstruction. Similar findings were seen on previous study. There is some mesenteric haziness and mesenteric small lymph nodes present similar to previous study. Fluid-filled descending and sigmoid colon and few scattered diverticuli present. There is no colonic distention There is no suggestion for diverticulitis.
--- NOTE | 2021-05-13 08:46 | ED_ITS ---
HPI - Abdominal Pain General Chief Complaint: Nausea/Vomiting/Diarrhea Stated Complaint: diarrhea, nausea, abd pain Time Seen by Provider: 05/13/21 08:42 Source: patient Mode of arrival: ambulatory Limitations: no limitations History of Present Illness HPI narrative: 61-year-old female with no known medical history presents to the emergency department with concerns of liquid diarrhea x1 day. Patient states that she has been having brown, completely liquid stool since last night. She reports 6 bowel movements since last night. Patient states she was recently hospitalized with C diff, and discharged home with p.o. vancomycin. She states initially she improved however she feels like it is back to how it was when she 1st came into the hospital on April 24, 2021. She also reports epigastric pain and right upper quadrant pain. She denies nausea, vomiting, shortness of breath, fevers, chills, weakness, changes in vision, headaches. MD elicited complaint: abdominal pain (Epigastric, RUQ) Pertinent past history: other (C.diff) Onset (ago): day(s) (1) Pain Consistency: constant Location: epigastric and RUQ Severity: moderate Quality: cramping Radiation: RUQ and epigastric Migration to: no migration Exacerbating factors: nothing Relieving factors: nothing Context: foreign travel ([place] about a month ago) and history of similar episodes Associated symptoms: chills Related Data Home Medications Medication Instructions Recorded Confirmed albuterol sulfate 90 mcg/actuation 2 puff PO QID 04/24/21 05/13/21 aerosol inhaler fluticasone 100 mcg-salmeterol 50 1 puff PO BID 04/24/21 05/13/21 mcg/dose blistr powdr for inhalation (Advair Diskus) omeprazole 20 mg capsule,delayed 1 cap PO BID 04/24/21 05/13/21 release clobetasol 0.05 % topical cream 1 appl TOPICAL BID 05/13/21 05/13/21 Allergies Allergy/AdvReac Type Severity Reaction Status Date / Time metronidazole [From Flagyl] Allergy Intermediate Rash Verified 04/28/21 11:24 amoxicillin [From AUGMENTIN] Allergy Mild NAUSEA & Verified 04/24/21 20:16 VOMITING clavulanic acid Allergy Mild NAUSEA & Verified 04/24/21 20:16 [From AUGMENTIN] VOMITING Penicillins [PCN] Allergy Mild HIVES Verified 04/24/21 20:16 Sulfa (Sulfonamide Allergy Mild HIVES Verified 04/24/21 20:16 Antibiotics) [SULFA (SULFONAMIDE ANTIBIOTICS)] Review of Systems Review of Systems Constitutional : No Weight loss, No Fever, No Chills, No Fatigue, No Malaise ENT/Mouth : No sore throat, No Rhinorrhea Eyes: No Eye Pain, No Swelling, No Redness Cardiovascular : No Chest Pain, No SOB, No Dyspnea on Exertion, No Orthopnea, No Edema, No Palpitations Respiratory : No Cough, No Sputum, No Wheezing Gastrointestinal : No Nausea, No Vomiting, + Diarrhea, No Constipation, + abdominal Pain, No Hematochezia, No Melena Genitourinary : No Dysuria, No Urinary Frequency, No Hematuria, Musculoskeletal : No joint pain, No Myalgias, No Joint Swelling Skin : No Skin Lesions, No rash Neuro : No Weakness, No Numbness, No Dizziness, No Headache All other systems reviewed and are negative Physical Exam Vital Signs: Vital Signs: Last Vital Signs Temp 98.2 F 05/13/21 11:26 Pulse 72 05/13/21 11:26 Resp 17 05/13/21 11:26 BP 138/76 05/13/21 11:26 Pulse Ox 95 05/13/21 11:26 Body Mass Index 28.1 Appearance: Alert.? Oriented X3.? No acute distress.? Head: Normocephalic, atraumatic, no step-offs or deformities Eyes: Pupils equal, round and reactive to light.? ENT: Pharynx normal.? Neck: Normal inspection.? Neck supple.? CVS: Normal heart rate and rhythm.? Pulses normal.? Respiratory: No respiratory distress.? Breath sounds normal.? Abdomen: Soft and + tenderness in epigastric region, and RUQ.? Skin: Skin warm and dry.? Normal skin color.? Normal skin turgor.? Extremities: No lower extremity edema.? No calf ttp. 5/5 strength to bilateral upper and lower extremities. Cap refill <2 seconds Back: No midline tenderness, no C-spine tenderness, full range of motion, no CVA tenderness bilaterally Neuro: Oriented X 3.? No motor deficit.? No sensory deficit. Course Reevaluation(s) Reevaluation #1: Patient is declining to get a CT of the abdomen at this time. A KUB will be ordered instead. Would like to rule out obstruction. Labs noted to have a leukocytosis. No acute electrolyte abnormalities. Time: 10:27 Reevaluation #2: Patient continues to have repetitive bowel movements that are completely liquid in nature. I was able to visualize patient's stool, it appe ars to be C diff and is foul smelling. Will give patient 250 mg of p.o. vancomycin for Clostridium difficile. CT of abdomen will be obtained. Time: 10:39 Reevaluation #3: Will reach out to GI. C diff. Negative. Few stool leukocyes. Spoke to Dr. Ribeiro, who believes this may be post infectious IBS and may require a colonoscopy. He recommends that patient be admitted to the hospitalist team for dehydration and a GI consult will be put in.He states PO vanco can be continued. Will reach out to hospitalist for admission. Time: 13:39 Additional Reevaluation(s): 1546 Patient will be admitted to the hospitalist team MDM - Abdominal Pain MDM Narrative Medical decision making narrative: 0842 61-year-old female no known medical history presents to the emergency department with 1 day/6 episodes of completely watery loose liquid stool. Patient also reports epigastric pain, and right upper quadrant pain x1 day. She denies vomiting, nausea, weakness, dizziness, headache, vision changes, chest pain, shortness of breath, fevers, chills. Patient report To note, patient was admitted here to the hospital from April 24, 2021 to April 28, 2021 for Clostridium difficile. Patient was discharged home on p.o. Vanco which initially helped her, however she feels as though she is back to how she started prior to treatment. Upon physical examination patient appears well, lungs are clear to auscultation, S1-S2 appreciated, abdomen soft and tender to the epigastric region and right upper quadrant. No focal neuro deficits. Capillary refill less than 2 seconds. 5/5 strength upper and lower extremities. Plan at this time is to obtain basic lab work, and stool sample. Medical Records Attestation: I reviewed the patient's medical records. Lab Data Attestation: I reviewed the patient's lab results. Result diagrams: 05/13/21 09:34 05/13/21 13:19 Labs: Lab Results 05/13/21 05/13/21 05/13/21 Range/Units 09:34 09:34 09:34 WBC 14.2 H (4.8-10.8) X10*3/uL RBC 4.90 D (4.20-5.50) X10*6/uL Hgb 14.6 D (12.0-16.0) g/dl Hct 44.7 D (37.0-47.0) % MCV 91.2 (80.0-98.0) fL MCH 29.8 (27.0-33.0) pg MCHC 32.7 (31.0-35.0) g/dl RDW 13.3 (11.0-16.0) % Plt Count 342 (160-400) X10*3/uL MPV 10.9 (9.4-12.3) fL Immature Gran % (Auto) 0.4 (0.0-0.4) % Neut % (Auto) 80.9 H (45-73) % Lymph % (Auto) 11.5 L (20-40) % [place] % (Auto) 4.5 (2-11) % Eos % (Auto) 2.2 (0-4) % Baso % (Auto) 0.5 (0-2) % Lymph # (Auto) 1.6 (1.2-4.9) X10*3/uL [place] # (Auto) 0.6 (0.1-1.2) X10*3/uL Eos # (Auto) 0.3 (0.0-0.4) X10*3/uL Baso # (Auto) 0.1 (0.0-0.2) X10*3/uL Abs Immat Gran (auto) 0.06 H (0.00-0.03) X10*3/uL Absolute Neuts (auto) 11.5 H (2.0-8.3) x10*3/uL Absolute Nucleated RBC 0.000 (0.0-0.012) X10*3/uL Nucleated RBC % (auto) 0.0 (0.0-0.2) /100WBC Sodium (135-145) mmol/L Potassium (3.3-5.1) mmol/L Chloride (96-108) mmol/L Carbon Dioxide (22-29) mmol/L Anion Gap (12-20) BUN (9-16) mg/dL Creatinine (0.5-1.4) mg/dL Estim Creat Clear Calc Estimated GFR Random Glucose (60-115) mg/dL Calcium (8.4-10.2) mg/dL Magnesium (1.6-2.6) mg/dL Total Bilirubin (0.0-1.0) mg/dL AST (5-31) U/L ALT (0-31) U/L Alkaline Phosphatase (39-117) U/L Total Protein (6.5-8.0) g/dL Albumin (3.5-5.0) g/dL Stool Leukocytes, Qual FEW: < 2/OIF (NEGATIVE) C. difficile Tox B Gene (Negative) COVID-19 ([facility]J) Negative (Negative) COVID-19 Clin Com See Note 05/13/21 05/13/21 Range/Units 09:34 13:19 WBC (4.8-10.8) X10*3/uL RBC (4.20-5.50) X10*6/uL Hgb (12.0-16.0) g/dl Hct (37.0-47.0) % MCV (80.0-98.0) fL MCH (27.0-33.0) pg MCHC (31.0-35.0) g/dl RDW (11.0-16.0) % Plt Count (160-400) X10*3/uL MPV (9.4-12.3) fL Immature Gran % (Auto) (0.0-0.4) % Neut % (Auto) (45-73) % Lymph % (Auto) (20-40) % [place] % (Auto) (2-11) % Eos % (Auto) (0-4) % Baso % (Auto) (0-2) % Lymph # (Auto) (1.2-4.9) X10*3/uL [place] # (Auto) (0.1-1.2) X10*3/uL Eos # (Auto) (0.0-0.4) X10*3/uL Baso # (Auto) (0.0-0.2) X10*3/uL Abs Immat Gran (auto) (0.00-0.03) X10*3/uL Absolute Neuts (auto) (2.0-8.3) x10*3/uL Absolute Nucleated RBC (0.0-0.012) X10*3/uL Nucleated RBC % (auto) (0.0-0.2) /100WBC Sodium 143 (135-145) mmol/L Potassium 4.2 (3.3-5.1) mmol/L Chloride 106 (96-108) mmol/L Carbon Dioxide 27 (22-29) mmol/L Anion Gap 14 (12-20) BUN 10 D (9-16) mg/dL Creatinine 0.74 (0.5-1.4) mg/dL Estim Creat Clear Calc 88.8 Estimated GFR > 60 Random Glucose 85 (60-115) mg/dL Calcium 9.0 D (8.4-10.2) mg/dL Magnesium 0.7 L* (1.6-2.6) mg/dL Total Bilirubin 0.4 (0.0-1.0) mg/dL AST 21 D (5-31) U/L ALT 15 (0-31) U/L Alkaline Phosphatase 68 D (39-117) U/L Total Protein 6.3 L D (6.5-8.0) g/dL Albumin 4.0 (3.5-5.0) g/dL Stool Leukocytes, Qual (NEGATIVE) C. difficile Tox B Gene NEGATIVE (Negative) COVID-19 (KJ) (Negative) COVID-19 Clin Com Critical Care Time Critical Care Time Critical Care Time: No Discharge Plan Discharge Clinical Impression: Diarrhea, Hypomagnesemia Irritable bowel syndrome Qualifiers: Irritable bowel syndrome type: with diarrhea Qualified Code(s): K58.0 - Irritable bowel syndrome with diarrhea Regional enteritis of small bowel Qualifiers: Digestive disease complication type: without complication Qualified Code(s): K50.00 - Crohn's disease of small intestine without complications Patient Disposition: Admitted As Inpatient [facility] Past Medical History Attestation statement: The following information was validated with the patient. Source: old records reviewed and nursing notes reviewed Medical History (Updated 05/13/21 @ 15:23 by GARIMA Jeong) C. difficile diarrhea Surgical History History of laparoscopic cholecystectomy Social History Social History Alcohol intake: current Alcohol intake frequency: holidays/special occasions only Patient Tobacco Use Status: Current everyday Tobacco user Tobacco use type: Cigarette Cigarette Packs Per Day: 0.5 Cigarettes Per Day: 10.0 Use of substances other than those prescribed or required for medical reasons: No Advance Directives: No service: No Current occupational status: other
[2021-05-13 09:16] VITALS: BP 142/86; PULSE 77; RESP 16; TEMP 36.9; O2SAT 95; BMI 28.1
[2021-05-13 09:58] LABS: MANUAL DIFF FLAG NO
[2021-05-13 10:00] LABS: Basophils Absolute Auto 0.1 X10*3/uL (0.0-0.2); Basophils Percent Auto 0.5 % (0-2); Eosinophils Absolute Auto 0.3 X10*3/uL (0.0-0.4); Eosinophils Percent Auto 2.2 % (0-4); Hematocrit 44.7 % (37.0-47.0); Hemoglobin 14.6 g/dl (12.0-16.0); Imm Gran Abs Auto 0.06 X10*3/uL (0.00-0.03); Imm Gran Pct Auto 0.4 % (0.0-0.4); Lymphocytes Absolute Auto 1.6 X10*3/uL (1.2-4.9); Lymphocytes Percent Auto 11.5 % (20-40); Mean Corpuscular HGB Conc 32.7 g/dl (31.0-35.0); Mean Corpuscular Hemoglobin 29.8 pg (27.0-33.0); Mean Corpuscular Volume 91.2 fL (80.0-98.0); Mean Platelet Volume 10.9 fL (9.4-12.3); Monocytes Absolute Auto 0.6 X10*3/uL (0.1-1.2); Monocytes Percent Auto 4.5 % (2-11); Neutrophils Absolute Auto 11.5 x10*3/uL (2.0-8.3); Neutrophils Percent Auto 80.9 % (45-73); Platelet Count 342 X10*3/uL (160-400); Red Cell Distribution Width 13.3 % (11.0-16.0); White Blood Count 14.2 X10*3/uL (4.8-10.8)
[2021-05-13 10:15] LABS: COVID-19 Test Negative (Negative); IDNOW Serial# 9DD0AD1C
[2021-05-13] MEDS: 0.9 % Sodium Chloride 1,000 ML 999 ML IV (10:26)
[2021-05-13 11:04] LABS: Leukocytes Stool Qualitative FEW: < 2/OIF (NEGATIVE)
[2021-05-13] MEDS: vancomycin HCL 125 MG CAPSULE 250 MG PO (11:24)
[2021-05-13 11:26] VITALS: BP 138/76; PULSE 72; RESP 17; TEMP 36.8; O2SAT 95
--- NOTE | 2021-05-13 11:27 | PC.NURSE ---
patient a&ox3, no c/o pain or discomfort, vss, pt medicated per order, will continue to monitor.
[2021-05-13 11:54] LABS: CDiff Gene PCR NEGATIVE (Negative)
[2021-05-13 13:53] LABS: Alanine Aminotransferase 15 U/L (0-31); Alkaline Phosphatase 68 U/L (39-117); Anion Gap 14 (12-20); Aspartate Amino Transferase 21 U/L (5-31); Bilirubin Total 0.4 mg/dL (0.0-1.0); Blood Urea Nitrogen 10 mg/dL (9-16); Carbon Dioxide 27 mmol/L (22-29); Chloride 106 mmol/L (96-108); Creatinine Clr Calc Pharmacy 88.8; Estimated Glomerular Filt Rate > 60; Glucose Random 85 mg/dL (60-115); Potassium 4.2 mmol/L (3.3-5.1); Sodium 143 mmol/L (135-145); Total Protein 6.3 g/dL (6.5-8.0)
[2021-05-13 14:07] LABS: Magnesium 0.7 mg/dL (1.6-2.6)
[2021-05-13] MEDS: Magnesium Sulfate/H2O 2 GM/50 ML PIGGYBACK IV ×2 (14:29→20:18)
[2021-05-13] MEDS: iohexoL 350 MG/ML 100 ML INFUS..BTL IV (14:48)
--- NOTE | 2021-05-13 15:02 | PC.NURSE ---
pt a&ox3, iv mag started per order, no c/o pain at this time, will continue to monitor.
[2021-05-13 15:28] VITALS: BP 110/58; PULSE 77; RESP 18; TEMP 36.2; O2SAT 95
--- NOTE | 2021-05-13 15:44 | P.HPHOSP_ITS ---
History of Present Illness Date of Service: 05/13/21 Chief Complaint: diarrhea 61-year-old female presented with diarrhea. Patient was discharged from [facility] on 04/28/2021 after hospitalization for Severe C diff colitis. She was treated with 2 week course of vancomycin. symptoms had completely resolved until day prior to presentation. Patient then started having crampy Diffuse abdominal pain and on night prior to presentation began to have multiple very loose bowel movements similar to previous symptoms. denies blood in stool, prior to her previous presentation patient had traveled to the [place], followed by antibiotic use. Currently in the ER patient is feeling a little better, has not had a bowel movement while in the ER. Lab significant for white blood cell count of 14 and magnesium of 0.7. C diff was negative. Review of Systems Review of Systems: Constitutional: Denies fever, denies Chills Eyes: denies blurry vision ENT: denies sore throat CVS: denies chest pain Respiratory: Denies dyspnea GI: abdominal pain : denies dysuria MSK: denies neck pain Skin: denies rash Neuro: denies specific motor weakness Psych: denies suicidal ideation Endocrine: denies heat/cold intolerance Hematologic: denies easy bleeding Allergy: denies hives PMF Medical History C. difficile diarrhea Family History (Updated 05/13/21 @ 15:48 by Dao Breen MD) Other IBD (inflammatory bowel disease) Pertinent family history: niece with IBD - but likely inherited from other side of family denies GI issues in first degree relatives Surgical History History of laparoscopic cholecystectomy Social History Alcohol intake: current Alcohol intake frequency: holidays/special occasions only Patient Tobacco Use Status: Current everyday Tobacco user Tobacco use type: Cigarette Cigarette Packs Per Day: 0.5 Cigarettes Per Day: 10.0 Use of substances other than those prescribed or required for medical reasons: No Advance Directives: No service: No Current occupational status: other Meds Allergies Allergy/AdvReac Type Severity Reaction Status Date / Time metronidazole [From Flagyl] Allergy Intermediate Rash Verified 04/28/21 11:24 amoxicillin [From AUGMENTIN] Allergy Mild NAUSEA & Verified 04/24/21 20:16 VOMITING clavulanic acid Allergy Mild NAUSEA & Verified 04/24/21 20:16 [From AUGMENTIN] VOMITING Penicillins [PCN] Allergy Mild HIVES Verified 04/24/21 20:16 Sulfa (Sulfonamide Allergy Mild HIVES Verified 04/24/21 20:16 Antibiotics) [SULFA (SULFONAMIDE ANTIBIOTICS)] Active Medications: Current Medications Magnesium Sulfate (Magnesium Sulfate/H2o) 2 gm in 50 mls @ 25 mls/hr IV ONCE STA Stop: 05/13/21 16:12 Last Admin: 05/13/21 14:29 Dose: 25 mls/hr Documented by: Magnesium Sulfate (Magnesium Sulfate/H2o) 2 gm in 50 mls @ 25 mls/hr IV ONCE ONE Stop: 05/13/21 21:59 Lactated Ringer's (Lr) 1,000 mls @ 80 mls/hr IVCONT .[id number] [facility] Loperamide HCl (Loperamide Hcl 2 Mg Capsule) 2 mg PO Q4H PRN PRN Reason: after loose BM Magnesium Oxide (Magnesium Oxide 400 Mg Tablet) 400 mg PO BIDPC [facility] Pharmacy Consult (Consult Rx Perform Med Rec) 1 each MISCELLANE ONCE PRN PRN Reason: Consult order Vancomycin HCl (Vancomycin Hcl 125 Mg Capsule) 125 mg PO Q6H [facility] Home Medications Medication Instructions Recorded Confirmed Last Taken Type albuterol sulfate 90 mcg/actuation 2 puff PO QID 04/24/21 04/24/21 Unknown History aerosol inhaler fluticasone 100 mcg-salmeterol 50 1 puff PO BID 04/24/21 04/24/21 Unknown History mcg/dose blistr powdr for inhalation (Advair Diskus) omeprazole 20 mg capsule,delayed 1 cap PO BID 04/24/21 04/24/21 04/24/21 History release clobetasol 0.05 % topical cream 1 appl TOPICAL BID 05/13/21 Unknown History Physical Exam Vital Signs and Narrative: Vital Signs: Last Vital Signs Temp 98.2 F 05/13/21 11:26 Pulse 72 05/13/21 11:26 Resp 17 05/13/21 11:26 BP 138/76 05/13/21 11:26 Pulse Ox 95 05/13/21 11:26 Body Mass Index 28.1 General: no acute distress HEENT: atraumatic Neck: normal to visual inspection CVS: S1, S2, RRR Resp: CTA bilateral Chest: non tender GI: soft, non tender, non distended : no CVA tenderness Skin: no rashes Extremities: no edema Neuro: Oriented X3, grossly intact Psych: cooperative Results Labs CBC and Chem 7: 05/13/21 09:34 05/13/21 13:19 Labs: Laboratory Results - last 24 hr 05/13/21 05/13/21 05/13/21 09:34 09:34 09:34 MCV 91.2 MCH 29.8 MCHC 32.7 RDW 13.3 Plt Count 342 MPV 10.9 Immature Gran % (Auto) 0.4 Neut % (Auto) 80.9 H Lymph % (Auto) 11.5 L [place] % (Auto) 4.5 Eos % (Auto) 2.2 Baso % (Auto) 0.5 Lymph # (Auto) 1.6 [place] # (Auto) 0.6 Eos # (Auto) 0.3 Baso # (Auto) 0.1 Abs Immat Gran (auto) 0.06 H Absolute Neuts (auto) 11.5 H Absolute Nucleated RBC 0.000 Nucleated RBC % (auto) 0.0 Anion Gap Estim Creat Clear Calc Estimated GFR Random Glucose Calcium Magnesium Total Bilirubin AST ALT Alkaline Phosphatase Total Protein Albumin Stool Leukocytes, Qual FEW: < 2/OIF C. difficile Tox B Gene COVID-19 (KJ) Negative COVID-19 Clin Com See Note 05/13/21 05/13/21 09:34 13:19 MCV MCH MCHC RDW Plt Count MPV Immature Gran % (Auto) Neut % (Auto) Lymph % (Auto) [place] % (Auto) Eos % (Auto) Baso % (Auto) Lymph # (Auto) [place] # (Auto) Eos # (Auto) Baso # (Auto) Abs Immat Gran (auto) Absolute Neuts (auto) Absolute Nucleated RBC Nucleated RBC % (auto) Anion Gap 14 Estim Creat Clear Calc 88.8 Estimated GFR > 60 Random Glucose 85 Calcium 9.0 D Magnesium 0.7 L* Total Bilirubin 0.4 AST 21 D ALT 15 Alkaline Phosphatase 68 D Total Protein 6.3 L D Albumin 4.0 Stool Leukocytes, Qual C. difficile Tox B Gene NEGATIVE COVID-19 ([facility]) COVID-19 Clin Com Imaging Radiologist's Impressions: Impressions Abdomen/Pelvis CT 05/13/21 08:42 IMPRESSION: Mild mural thickening involving the ileal loops including distal ileum with fluid suggestive of small bowel enteritis. There is no suggestion for bowel obstruction. Similar findings were seen on previous study. There is some mesenteric haziness and mesenteric small lymph nodes present similar to previous study. Fluid-filled descending and sigmoid colon and few scattered diverticuli present. There is no colonic distention There is no suggestion for diverticulitis. Assessment and Plan (1) Clostridium difficile infection: Status: Acute (2) Diarrhea: Status: Acute (3) Hypomagnesemia: Status: Acute 61F presented with recurrent abdominal pain and diarrhea after recently completing treatment for C diff colitis acute recurrent colitis possible false-negative C diff versus postinfectious colitis restart vanco ivf, GI eval imodium prn hypomagnesemia severe, repalce, and monitor smoking cessation mild intermittent asthma/copd stable, conitnue inhaled Advair equivalent, prn albuterol Quality Stroke Does the patient have a stroke diagnosis?: No VTE Prior VTE?: No VTE Risk Level:: Medical - moderate - high VTE Device Contraindication: Treatment Not Indicated VTE Drug Contraindication: N/A - Med Ordered
[2021-05-13] MEDS: Lactated Ringers 1,000 ML 80 ML IVCONT (16:41)
[2021-05-13] MEDS: Enoxaparin Sodium 40 MG/0.4 ML SYRINGE SUBCUT (16:41)
[2021-05-13] MEDS: vancomycin HCL 125 MG CAPSULE PO ×2 (16:41→23:45)
[2021-05-13] MEDS: Magnesium Oxide 400 MG TABLET PO (16:41)
--- NOTE | 2021-05-13 16:41 | PC.NURSE ---
patient medicated per order
--- NOTE | 2021-05-13 16:48 | PC.NURSE ---
pt a&ox3, pt ambulated to bathroom independently/steady gait, pt medicated per order, ivf running per order, will continue to monitor.
[2021-05-13 18:04] VITALS: BP 128/78; PULSE 76; RESP 17; TEMP 36.7; O2SAT 95
--- NOTE | 2021-05-13 21:05 | PC.NURSE ---
called pharmacy for missing med
--- NOTE | 2021-05-13 21:17 | MHC.CM.PN ---
CM met with admitted patient with bed assignment pending. A&Ox3. Independent. No IMM necessary. No HCP on file. Copy requested. HCP/ Martin Velasquez ([phone]). 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 Lives with . Uses no DME or services. Pt is fully vaccinated. Pt was admitted to [facility] [place]/24-04/28/2021 with C.Diff. Pt had recently travelled to the [place] and was hospitalized there for c.diff infection. Several people in their wedding group were also sick. D/C plan is home without services. to provide transportation home. CM to follow for d/c needs.
--- NOTE | 2021-05-13 21:28 | PC.NURSE ---
patient currently sleeping
[2021-05-14] VITALS (8 sets, daily range): BP systolic 91–152; BP diastolic 50–73; PULSE 55–82; RESP 16–20; TEMP 36.4–37; O2SAT 95–99
[2021-05-14] MEDS: vancomycin HCL 125 MG CAPSULE PO ×4 (05:17→23:02)
[2021-05-14] MEDS: Acetaminophen 325 MG TABLET 650 MG PO (05:17)
[2021-05-14] MEDS: Lactated Ringers 1,000 ML 80 ML IVCONT ×2 (05:18→15:45)
[2021-05-14 05:45] LABS: Hematocrit 35.2 % (37.0-47.0); Hemoglobin 11.6 g/dl (12.0-16.0); Mean Corpuscular Hemoglobin 29.8 pg (27.0-33.0); Mean Corpuscular Volume 90.5 fL (80.0-98.0); Mean Platelet Volume 10.5 fL (9.4-12.3); Platelet Count 268 X10*3/uL (160-400); Red Blood Count 3.89 X10*6/uL (4.20-5.50); Red Cell Distribution Width 13.2 % (11.0-16.0); White Blood Count 6.8 X10*3/uL (4.8-10.8)
[2021-05-14 05:59] LABS: Anion Gap 10 (12-20); Blood Urea Nitrogen 6 mg/dL (9-16); Calcium 8.5 mg/dL (8.4-10.2); Carbon Dioxide 29 mmol/L (22-29); Chloride 106 mmol/L (96-108); Estimated Glomerular Filt Rate > 60; Glucose Fasting 91 mg/dL (60-99); Magnesium 1.9 mg/dL (1.6-2.6); Potassium 3.3 mmol/L (3.3-5.1); Sodium 142 mmol/L (135-145)
[2021-05-14] MEDS: Betamethasone Dip Aug 0.05% Cr 15 GM TUBE 1 APPL TOPICAL ×2 (07:42→21:29)
[2021-05-14] MEDS: Magnesium Oxide 400 MG TABLET PO ×2 (07:42→17:40)
[2021-05-14] MEDS: Fluticasone/Vilanterol 100/25 BLST.W.DEV 1 PUFF INHALE (08:10)
[2021-05-14] MEDS: Albuterol Sulfate 90 MCG 8 GM INHALER 2 PUFF INHALE (08:10)
[2021-05-14 08:27] LABS: Appearance Urine HAZY; Color Urine YELLOW; Glucose Urine UA NEG (NEG); Leukocyte Esterase Urine NEG (NEG); Nitrite Urine NEG (NEG); Urine Blood NEG (NEG); Urine Ketones 5 MG/DL (NEG); Urine Protein NEG (NEG-TRACE)
--- NOTE | 2021-05-14 12:21 | MHC.SHP ---
Pre-Procedural Eval Section A Date of Service: 05/15/21 The patient is an INPATIENT: Yes The History & Physical has been completed within 30 days and I have reviewed it.: Yes Section B Chief Complaint: Diarrhea, hypomag Allergies: Allergies Allergy/AdvReac Type Severity Reaction Status Date / Time metronidazole [From Flagyl] Allergy Intermediate Rash Verified 04/28/21 11:24 amoxicillin [From AUGMENTIN] Allergy Mild NAUSEA & Verified 04/24/21 20:16 VOMITING clavulanic acid Allergy Mild NAUSEA & Verified 04/24/21 20:16 [From AUGMENTIN] VOMITING Penicillins [PCN] Allergy Mild HIVES Verified 04/24/21 20:16 Sulfa (Sulfonamide Allergy Mild HIVES Verified 04/24/21 20:16 Antibiotics) [SULFA (SULFONAMIDE ANTIBIOTICS)] Plan I have reviewed the history and physical and performed a pertinent physical examination on my patient. No changes have occurred unless specified.
--- NOTE | 2021-05-14 12:22 | PM.EVENT ---
Event Note Date of Service: 05/14/21 Event Note: GI Consult-Full note dictated Imp: Recurrent diarrhea and abnormal CT of GI tract after finishing 2 weeks of Vanco for C.diff. Repeat stool is neg. for C.diff here. She is feeling better and her abdomen is benign.She also has baseline GERD on BID PPI at home and some dysphagia. Need to R/O IBD, relapsing C.diff even though stool was negative, microscopic colitis, celiac disease, esophagitis with esophageal stricture or ring, and Alicia's esophagus. Rec: EGD with possible dilation and Colonoscopy 1118 AM. Full consent has been obtained from her and her for this, including risks of bleeding and perforation. Hold Lovenox. D/W patient and in detail. They are comfortable with this plan. Thanks
--- NOTE | 2021-05-14 12:43 | HO.PM.IMPN ---
Subjective Subjective Date of Service: 05/14/21 Interval History: the patient was seen and evaluated this morning Laying in bed, feels Worried about the reason behind her abdominal pain Denies any fever, chills or shortness of breath No reported other overnight events. Systemic review: No fever, chills or weakness No chest pain, palpitation No shortness of breath or coughing Generalized abdominal pain, no nausea or vomiting No urinary symptoms No any rash or wounds Physical Exam Vital Signs: Vital Signs: Last Vital Signs Temp 98.4 F 05/14/21 12:00 Pulse 68 05/14/21 12:00 Resp 18 05/14/21 12:00 BP 114/65 05/14/21 12:00 Pulse Ox 99 05/14/21 12:00 Body Mass Index 28.1 Const: Other: Constitutional : Alert, oriented, not in distress Neck : Normal inspection, Supple Cardiovascular : RRR, S1 S2, no lower extremity edema Respiratory : Good bilateral air entry, no crackles, wheezes or rhonchi Gastrointestinal: soft, lax, Normal bowel sounds, mild generalized tenderness Skin : Warm, Dry Neurological : Alert & oriented x3, No focal deficit Objective Data Active Medications Acetaminophen (Acetaminophen 325 Mg Tablet) 650 mg PO Q6H PRN PRN Reason: Pain, Mild (Pain Scale 1-3) Last Admin: 05/14/21 05:17 Dose: 650 mg Documented by: LEIGHA Albuterol Sulfate (Albuterol Sulfate 90 Mcg 8 Gm Inhaler) 2 puff INHALE RQID [facility] Last Admin: 05/14/21 11:53 Dose: Not Given Documented by: BREANN Non-Admin Reason: Patient Refused Betamethasone Dipropion Augmented (Betamethasone Dip Aug 0.05% Cr 15 Gm Tube) 1 appl TOPICAL BID [facility] Last Admin: 05/14/21 07:42 Dose: 1 appl Documented by: ANT Bisacodyl (Bisacodyl 5 Mg Tablet.Dr) 10 mg PO ONCE ONE Stop: 05/14/21 18:13 Enoxaparin Sodium (Enoxaparin Sodium 40 Mg/0.4 Ml Syringe) 40 mg SUBCUT Q24H [facility] Last Admin: 05/13/21 16:41 Dose: 40 mg Documented by: SUSANNA Fluticasone/Vilanterol (Fluticasone/Vilanterol 100/25 Blst.W.Dev) 1 puff INHALE RDAILY [facility] Last Admin: 05/14/21 08:10 Dose: 1 puff Documented by: KATE Lactated Ringer's (Lr) 1,000 mls @ 80 mls/hr IVCONT .[id number] [facility] Last Admin: 05/14/21 05:18 Dose: 80 mls/hr Documented by: LEIGHA Loperamide HCl (Loperamide Hcl 2 Mg Capsule) 2 mg PO Q4H PRN PRN Reason: after loose BM Magnesium Oxide (Magnesium Oxide 400 Mg Tablet) 400 mg PO BIDPC [facility] Last Admin: 05/14/21 07:42 Dose: 400 mg Documented by: ANT Pharmacy Consult (Consult Rx Perform Med Rec) 1 each MISCELLANE ONCE PRN PRN Reason: Consult order Polyethylene Glycol/Electrolytes (Peg 3350/Na Sulf,Bicarb,Cl/Kcl 4,000 Ml Soln.Recon) 4,000 ml PO ONCE ONE Stop: 05/14/21 15:16 Sodium Chloride (0.9 % Sodium Chloride Flush 3 Ml Syringe) 3 ml IVFLUSH QSHIFT [facility] Last Admin: 05/14/21 07:43 Dose: Not Given Documented by: ANT Non-Admin Reason: IV Running Vancomycin HCl (Vancomycin Hcl 125 Mg Capsule) 125 mg PO Q6H [facility] Last Admin: 05/14/21 12:26 Dose: 125 mg Documented by: ANT Labs CBC & Chem 7: 05/14/21 05:28 05/14/21 05:28 Labs: Laboratory Results - last 24 hr 05/13/21 05/14/21 05/14/21 13:19 05:28 05:28 MCV 90.5 MCH 29.8 MCHC 33.0 RDW 13.2 Plt Count 268 MPV 10.5 Absolute Nucleated RBC 0.000 Nucleated RBC % (auto) 0.0 Anion Gap 14 10 L Estim Creat Clear Calc 88.8 90.0 Estimated GFR > 60 > 60 Random Glucose 85 Fasting Glucose 91 Calcium 9.0 D 8.5 Magnesium 0.7 L* 1.9 Total Bilirubin 0.4 AST 21 D ALT 15 Alkaline Phosphatase 68 D Total Protein 6.3 L D Albumin 4.0 Urine Color Urine Appearance Urine pH Ur Specific [place] Urine Protein Urine Glucose (UA) Urine Ketones Urine Blood Urine Nitrite Ur Leukocyte Esterase 05/14/21 Unknown MCV MCH MCHC RDW Plt Count MPV Absolute Nucleated RBC Nucleated RBC % (auto) Anion Gap Estim Creat Clear Calc Estimated GFR Random Glucose Fasting Glucose Calcium Magnesium Total Bilirubin AST ALT Alkaline Phosphatase Total Protein Albumin Urine Color YELLOW Urine Appearance HAZY Urine pH 6.0 Ur Specific [place] 1.020 Urine Protein NEG Urine Glucose (UA) NEG Urine Ketones 5 Urine Blood NEG Urine Nitrite NEG Ur Leukocyte Esterase NEG Microbiology Microbiology Results: Microbiology 05/13/21 09:34 Stool Culture - Preliminary Stool Normal so far. Assessment and Plan (1) Diarrhea: Status: Acute Assessment and Plan: 61F presented with recurrent abdominal pain and diarrhea after recently completing treatment for C diff colitis Suspected recurrent colitis possible false-negative C diff versus postinfectious colitis restarted vanco continue ivf GI eval appreciated, imodium prn hypomagnesemia replaced, and monitor smoking advised cessation mild intermittent asthma/copd stable, conitnue inhaled Advair equivalent, prn albuterol DVT PPx Quality Stroke Does the patient have a stroke diagnosis?: No VTE Prior VTE?: No VTE Risk Level:: Medical - moderate - high VTE Device Contraindication: Treatment Not Indicated VTE Drug Contraindication: N/A - Med Ordered
[2021-05-14] MEDS: PEG 3350/Na Sulf,Bicarb,Cl/KCL 4,000 ML SOLN.RECON 4000 ML PO (14:44)
[2021-05-14] MEDS: bisacodyL 5 MG TABLET.DR 10 MG PO (17:40)
[2021-05-15] VITALS (7 sets, daily range): BP systolic 106–174; BP diastolic 51–74; PULSE 60–92; RESP 16–18; TEMP 36.1–37; O2SAT 94–100
[2021-05-15] MEDS: Lactated Ringers 1,000 ML 80 ML IVCONT ×2 (03:31→07:29)
[2021-05-15] MEDS: vancomycin HCL 125 MG CAPSULE PO (04:39)
[2021-05-15 05:32] LABS: MANUAL DIFF FLAG NO
[2021-05-15 05:36] LABS: Basophils Absolute Auto 0.1 X10*3/uL (0.0-0.2); Basophils Percent Auto 0.9 % (0-2); Eosinophils Absolute Auto 0.5 X10*3/uL (0.0-0.4); Eosinophils Percent Auto 8.3 % (0-4); Hematocrit 33.9 % (37.0-47.0); Hemoglobin 11.1 g/dl (12.0-16.0); Imm Gran Abs Auto 0.02 X10*3/uL (0.00-0.03); Imm Gran Pct Auto 0.3 % (0.0-0.4); Lymphocytes Absolute Auto 1.7 X10*3/uL (1.2-4.9); Lymphocytes Percent Auto 29.1 % (20-40); Mean Corpuscular HGB Conc 32.7 g/dl (31.0-35.0); Mean Corpuscular Hemoglobin 29.3 pg (27.0-33.0); Mean Corpuscular Volume 89.4 fL (80.0-98.0); Mean Platelet Volume 10.2 fL (9.4-12.3); Monocytes Absolute Auto 0.3 X10*3/uL (0.1-1.2); Monocytes Percent Auto 5.8 % (2-11); Neutrophils Absolute Auto 3.3 x10*3/uL (2.0-8.3); Neutrophils Percent Auto 55.6 % (45-73); Platelet Count 248 X10*3/uL (160-400); Red Blood Count 3.79 X10*6/uL (4.20-5.50); Red Cell Distribution Width 13.1 % (11.0-16.0); White Blood Count 5.9 X10*3/uL (4.8-10.8)
[2021-05-15 05:57] LABS: Anion Gap 12 (12-20); Blood Urea Nitrogen 3 mg/dL (9-16); Calcium 8.7 mg/dL (8.4-10.2); Carbon Dioxide 28 mmol/L (22-29); Chloride 108 mmol/L (96-108); Creatinine Clr Calc Pharmacy 95.3; Estimated Glomerular Filt Rate > 60; Glucose Fasting 84 mg/dL (60-99); Potassium 3.5 mmol/L (3.3-5.1); Sodium 144 mmol/L (135-145)
--- NOTE | 2021-05-15 07:25 | HO.ANESPROP2 ---
[facility] Active Problems Active Problems: All Active Problems (Updated 05/13/21 @ 15:23 by GARIMA Jeong) Clostridium difficile infection (Acute) Diarrhea (Acute) Hypomagnesemia (Acute) Regional enteritis of small bowel (Acute) Irritable bowel syndrome (Acute) Past Medical History Medical History C. difficile diarrhea Family History Family History Other IBD (inflammatory bowel disease) Surgical History Surgical History History of laparoscopic cholecystectomy History of Problems with Anesthesia: No Social History Social History Household Members: Spouse Housing: House Do you presently have visiting nurse or other home services: No Alcohol intake: current Alcohol intake frequency: holidays/special occasions only Patient Tobacco Use Status: Current everyday Tobacco user Tobacco use type: Cigarette Cigarette Packs Per Day: 0.5 Cigarettes Per Day: 10.0 service: No Current occupational status: employed and other Meds Allergies Allergy/AdvReac Type Severity Reaction Status Date / Time metronidazole [From Flagyl] Allergy Intermediate Rash Verified 04/28/21 11:24 amoxicillin [From AUGMENTIN] Allergy Mild NAUSEA & Verified 04/24/21 20:16 VOMITING clavulanic acid Allergy Mild NAUSEA & Verified 04/24/21 20:16 [From AUGMENTIN] VOMITING Penicillins [PCN] Allergy Mild HIVES Verified 04/24/21 20:16 Sulfa (Sulfonamide Allergy Mild HIVES Verified 04/24/21 20:16 Antibiotics) [SULFA (SULFONAMIDE ANTIBIOTICS)] Active Medications: Current Medications Acetaminophen (Acetaminophen 325 Mg Tablet) 650 mg PO Q6H PRN PRN Reason: Pain, Mild (Pain Scale 1-3) Last Admin: 05/14/21 05:17 Dose: 650 mg Documented by: Albuterol Sulfate (Albuterol Sulfate 90 Mcg 8 Gm Inhaler) 2 puff INHALE RQID [facility] Last Admin: 05/14/21 19:42 Dose: Not Given Documented by: Betamethasone Dipropion Augmented (Betamethasone Dip Aug 0.05% Cr 15 Gm Tube) 1 appl TOPICAL BID [facility] Last Admin: 05/14/21 21:29 Dose: 1 appl Documented by: Enoxaparin Sodium (Enoxaparin Sodium 40 Mg/0.4 Ml Syringe) 40 mg SUBCUT Q24H [facility] Last Admin: 05/14/21 15:07 Dose: Not Given Documented by: Fluticasone/Vilanterol (Fluticasone/Vilanterol 100/25 Blst.W.Dev) 1 puff INHALE RDAILY [facility] Last Admin: 05/14/21 08:10 Dose: 1 puff Documented by: Lactated Ringer's (Lr) 1,000 mls @ 80 mls/hr IVCONT .[id number] [facility] Last Admin: 05/15/21 03:31 Dose: 80 mls/hr Documented by: Loperamide HCl (Loperamide Hcl 2 Mg Capsule) 2 mg PO Q4H PRN PRN Reason: after loose BM Magnesium Oxide (Magnesium Oxide 400 Mg Tablet) 400 mg PO BIDPC [facility] Last Admin: 05/14/21 17:40 Dose: 400 mg Documented by: Pharmacy Consult (Consult Rx Perform Med Rec) 1 each MISCELLANE ONCE PRN PRN Reason: Consult order Sodium Chloride (0.9 % Sodium Chloride Flush 3 Ml Syringe) 3 ml IVFLUSH QSHIFT [facility] Last Admin: 05/14/21 23:05 Dose: Not Given Documented by: Vancomycin HCl (Vancomycin Hcl 125 Mg Capsule) 125 mg PO Q6H [facility] Last Admin: 05/15/21 04:39 Dose: 125 mg Documented by: Home Medications Medication Instructions Recorded Confirmed Last Taken Type albuterol sulfate 90 mcg/actuation 2 puff PO QID 04/24/21 05/13/21 Unknown History aerosol inhaler fluticasone 100 mcg-salmeterol 50 1 puff PO BID 04/24/21 05/13/21 05/12/21 History mcg/dose blistr powdr for inhalation (Advair Diskus) omeprazole 20 mg capsule,delayed 1 cap PO BID 04/24/21 05/13/21 05/12/21 History release clobetasol 0.05 % topical cream 1 appl TOPICAL BID 05/13/21 05/13/21 05/12/21 History Exam Exam Date and Time: May 15, 2021 0725 Height,Weight and Vital Signs: Height 5 ft 7 in Weight 81.647 kg Last Vital Signs Temp 98.2 F 05/15/21 06:41 Pulse 66 05/15/21 06:41 Resp 18 05/15/21 06:41 BP 132/74 05/15/21 06:41 Pulse Ox 94 05/15/21 06:41 Pertinent Lab Results Pertinent Lab Results: Laboratory Tests 05/13/21 05/13/21 05/13/21 09:34 09:34 09:34 WBC 14.2 H RBC 4.90 D Hgb 14.6 D Hct 44.7 D MCV 91.2 MCH 29.8 MCHC 32.7 RDW 13.3 Plt Count 342 MPV 10.9 Immature Gran % (Auto) 0.4 Neut % (Auto) 80.9 H Lymph % (Auto) 11.5 L [place] % (Auto) 4.5 Eos % (Auto) 2.2 Baso % (Auto) 0.5 Lymph # (Auto) 1.6 [place] # (Auto) 0.6 Eos # (Auto) 0.3 Baso # (Auto) 0.1 Abs Immat Gran (auto) 0.06 H Absolute Neuts (auto) 11.5 H Absolute Nucleated RBC 0.000 Nucleated RBC % (auto) 0.0 Sodium Potassium Chloride Carbon Dioxide Anion Gap BUN Creatinine Estim Creat Clear Calc Estimated GFR Random Glucose Fasting Glucose Calcium Magnesium Total Bilirubin AST ALT Alkaline Phosphatase Total Protein Albumin Urine Color Urine Appearance Urine pH Ur Specific [place] Urine Protein Urine Glucose (UA) Urine Ketones Urine Blood Urine Nitrite Ur Leukocyte Esterase Stool Leukocytes, Qual FEW: < 2/OIF C. difficile Tox B Gene COVID-19 (KJ) Negative COVID-19 Clin Com See Note 05/13/21 05/13/21 05/14/21 09:34 13:19 05:28 WBC 6.8 RBC 3.89 L D Hgb 11.6 L D Hct 35.2 L D MCV 90.5 MCH 29.8 MCHC 33.0 RDW 13.2 Plt Count 268 MPV 10.5 Immature Gran % (Auto) Neut % (Auto) Lymph % (Auto) [place] % (Auto) Eos % (Auto) Baso % (Auto) Lymph # (Auto) [place] # (Auto) Eos # (Auto) Baso # (Auto) Abs Immat Gran (auto) Absolute Neuts (auto) Absolute Nucleated RBC 0.000 Nucleated RBC % (auto) 0.0 Sodium 143 Potassium 4.2 Chloride 106 Carbon Dioxide 27 Anion Gap 14 BUN 10 D Creatinine 0.74 Estim Creat Clear Calc 88.8 Estimated GFR > 60 Random Glucose 85 Fasting Glucose Calcium 9.0 D Magnesium 0.7 L* Total Bilirubin 0.4 AST 21 D ALT 15 Alkaline Phosphatase 68 D Total Protein 6.3 L D Albumin 4.0 Urine Color Urine Appearance Urine pH Ur Specific [place] Urine Protein Urine Glucose (UA) Urine Ketones Urine Blood Urine Nitrite Ur Leukocyte Esterase Stool Leukocytes, Qual C. difficile Tox B Gene NEGATIVE COVID-19 (KJ) COVID-19 CRMnext 05/14/21 05/14/21 05/15/21 05:28 Unknown 05:21 WBC Cancelled RBC Cancelled Hgb Cancelled Hct Cancelled MCV Cancelled MCH Cancelled MCHC Cancelled RDW Cancelled Plt Count Cancelled MPV Cancelled Immature Gran % (Auto) Neut % (Auto) Lymph % (Auto) [place] % (Auto) Eos % (Auto) Baso % (Auto) Lymph # (Auto) [place] # (Auto) Eos # (Auto) Baso # (Auto) Abs Immat Gran (auto) Absolute Neuts (auto) Absolute Nucleated RBC Cancelled Nucleated RBC % (auto) Cancelled Sodium 142 Potassium 3.3 D Chloride 106 Carbon Dioxide 29 Anion Gap 10 L BUN 6 L Creatinine 0.73 Estim Creat Clear Calc 90.0 Estimated GFR > 60 Random Glucose Fasting Glucose 91 Calcium 8.5 Magnesium 1.9 Total Bilirubin AST ALT Alkaline Phosphatase Total Protein Albumin Urine Color YELLOW Urine Appearance HAZY Urine pH 6.0 Ur Specific [place] 1.020 Urine Protein NEG Urine Glucose (UA) NEG Urine Ketones 5 Urine Blood NEG Urine Nitrite NEG Ur Leukocyte Esterase NEG Stool Leukocytes, Qual C. difficile Tox B Gene COVID-19 (KJ) COVID-19 CRMnext 05/15/21 05/15/21 05/15/21 05:21 05:21 05:21 WBC 5.9 RBC 3.79 L Hgb 11.1 L Hct 33.9 L MCV 89.4 MCH 29.3 MCHC 32.7 RDW 13.1 Plt Count 248 MPV 10.2 Immature Gran % (Auto) 0.3 Neut % (Auto) 55.6 Lymph % (Auto) 29.1 [place] % (Auto) 5.8 Eos % (Auto) 8.3 H Baso % (Auto) 0.9 Lymph # (Auto) 1.7 [place] # (Auto) 0.3 Eos # (Auto) 0.5 H Baso # (Auto) 0.1 Abs Immat Gran (auto) 0.02 Absolute Neuts (auto) 3.3 Absolute Nucleated RBC 0.000 Nucleated RBC % (auto) 0.0 Sodium Cancelled 144 Potassium Cancelled 3.5 Chloride Cancelled 108 Carbon Dioxide Cancelled 28 Anion Gap Cancelled 12 BUN Cancelled 3 L Creatinine Cancelled 0.69 Estim Creat Clear Calc Cancelled 95.3 Estimated GFR Cancelled > 60 Random Glucose Cancelled Fasting Glucose 84 Calcium Cancelled 8.7 Magnesium Total Bilirubin AST ALT Alkaline Phosphatase Total Protein Albumin Urine Color Urine Appearance Urine pH Ur Specific [place] Urine Protein Urine Glucose (UA) Urine Ketones Urine Blood Urine Nitrite Ur Leukocyte Esterase Stool Leukocytes, Qual C. difficile Tox B Gene COVID-19 (KJ) COVID-19 Clin Com Airway Mallampati Class: II TM Dist: >3cm Neck ROM: Full Partial: Lower Loose/Missing/Broken Teeth: Yes and Lower Heart: RRR Lungs: CTA Assessment and Plan Assessment Anesthesia Assessment: Anesthesia Plan Discussed and Chart Reviewed Final Anesthetic Review History of Problems with Anesthesia: No NPO: Yes ASA Class: II Final Preanesthetic Review: Meds/Allgs Chart Reviewed, Consent Obtained/Reviewed and Anes Risks/Benef Reviewed Patient Risk: Low Procedure Risk: Intermediate Anesthetic Plan Anesthetic Plan: MAC: Disposition: Standard PACU
[2021-05-15] MEDS: Lactated Ringers 1,000 ML 50 ML IVCONT (07:31)
--- NOTE | 2021-05-15 08:54 | PM.EVENT ---
Event Note Date of Service: 05/15/21 Event Note: GI-Full note dictated EGD 1. EG Junction with very mild nonobstructing distal esophageal ring-dilated with a 19-20mm balloon with no real effect; slight irregularity at EG [place]unction biopsied x 3; no esophagitis 2. Small to moderate sized hiatal hernia 3. Minimal antral gastritis-bx x 3 4. Duodenum WNL-Biopsies taken Colonoscopy to cecum and TI with hot snare polypectomy and biopsies 1. Approx 8mm polyp at 40cm-hot snared/rec 2. Normal TI and colon mucosa--bx in Terminal ileum, Ascending colon, and descending colon Rec: Continue oral PPI, advance diet to Lactose-free Given no signs of colitis and negative stool specimen, I will stop the Vanco and observe. Use Imodium prn. Hold all NSAIDS, ASA, Lovenox, etc for 1 week. She can be discharged today if stable. D/W patient and . Thanks
[2021-05-15] MEDS: 0.9 % Sodium Chloride Flush 3 ML SYRINGE IVFLUSH (09:33)
[2021-05-15] MEDS: Magnesium Oxide 400 MG TABLET PO (09:33)
[2021-05-15] MEDS: Betamethasone Dip Aug 0.05% Cr 15 GM TUBE 1 APPL TOPICAL (10:34)
--- NOTE | 2021-05-15 11:33 | P.DS_ITS ---
DS: Providers Provider Date of Service: 05/15/21 Date of admission: 05/13/21 15:43 Primary care physician: Champ Yusuf Consults: 05/13/21 15:07 Consult to Gastroenterology Stat Consulting Provider: Gene Crowe Reason for consultation: post infectious IBS Has provider been notified: No 05/13/21 15:40 Consult to Gastroenterology Routine Consulting Provider: Gene Crowe Reason for consultation: diarrhea, recent cdif DS: Diagnosis Discharge Diagnosis (1) Diarrhea: Status: Acute (2) Hypomagnesemia: Status: Acute (3) Irritable bowel syndrome: Status: Acute DS: Summary Hospital Course Hospital Course: Admission note HPI ?61-year-old female presented with diarrhea.? Patient was discharged from [facility] on 04/28/2021 after hospitalization for? Severe C diff colitis.? She was treated with 2 week course of vancomycin. symptoms? had completely resolved until day prior to presentation.? Patient then started having crampy? Diffuse abdominal pain and on night prior to presentation began to have multiple very loose bowel movements similar to previous symptoms. denies blood in stool, prior to her previous presentation patient had traveled to the [place], followed by antibiotic use.? Currently in the ER patient is feeling a little better, has not had a bowel movement while in the ER.? Lab significant for white blood cell count of 14 and magnesium of 0.7.? C diff was negative. Hospital course The patient was admitted for possible C diff infection. Genetic testing was negative. The patient continue to have abdominal pain and diarrhea. Treated with oral vancomycin for possible false negative results. Evaluated by Gastroenterology who recommended upper and lower endoscopy. Both were done and showed no evidence of infection but small ring and polyps which were biopsied. GI recommendations to discharge home advanced diet to gluten free diet. Plan to discharge home on PPI and to follow up with GI as outpatient. EGD 1. EG Junction with very mild nonobstructing distal esophageal ring-dilated with a 19-20mm balloon with no real effect; slight irregularity at [place] biopsied x 3; no esophagitis 2. Small to moderate sized hiatal hernia 3. Minimal antral gastritis-bx x 3 4. Duodenum WNL-Biopsies taken Colonoscopy to cecum and TI with hot snare polypectomy and biopsies 1. Approx 8mm polyp at 40cm-hot snared/rec 2. Normal TI and colon mucosa--bx in Terminal ileum, Ascending colon, and descending colon Time Spent with Patient Time attestation: Total time spent providing and/or coordinating discharge services: Discharge coordination time: Greater than 30 minutes Quality: Stroke Does the patient have a stroke diagnosis?: No Physical Exam Vital Signs: Vital Signs: Last Vital Signs Temp 97.3 F 05/15/21 11:27 Pulse 61 05/15/21 11:27 Resp 18 05/15/21 11:27 BP 141/66 H 05/15/21 11:27 Pulse Ox 97 05/15/21 11:27 Body Mass Index 28.1 Const: Other: Constitutional : Alert, oriented, not in distress Neck : Normal inspection, Supple Cardiovascular : RRR, S1 S2, no lower extremity edema Respiratory : Good bilateral air entry, no crackles, wheezes or rhonchi Gastrointestinal: soft, lax, Normal bowel sounds, Non tender Skin : Warm, Dry Neurological : Alert & oriented x3, No focal deficit DS: Data Data Completed and Pending Pending studies at discharge: Pending at discharge 05/15/21 07:45 Surgical [PTH] Routine Labs on day of discharge: Laboratory Results - last 24 hr 05/15/21 05/15/21 05/15/21 05:21 05:21 05:21 WBC Cancelled RBC Cancelled Hgb Cancelled Hct Cancelled MCV Cancelled MCH Cancelled MCHC Cancelled RDW Cancelled Plt Count Cancelled MPV Cancelled Immature Gran % (Auto) Neut % (Auto) Lymph % (Auto) [place] % (Auto) Eos % (Auto) Baso % (Auto) Lymph # (Auto) [place] # (Auto) Eos # (Auto) Baso # (Auto) Abs Immat Gran (auto) Absolute Neuts (auto) Absolute Nucleated RBC Cancelled Nucleated RBC % (auto) Cancelled Sodium Cancelled 144 Potassium Cancelled 3.5 Chloride Cancelled 108 Carbon Dioxide Cancelled 28 Anion Gap Cancelled 12 BUN Cancelled 3 L Creatinine Cancelled 0.69 Estim Creat Clear Calc Cancelled 95.3 Estimated GFR Cancelled > 60 Random Glucose Cancelled Fasting Glucose 84 Calcium Cancelled 8.7 05/15/21 05:21 WBC 5.9 RBC 3.79 L Hgb 11.1 L Hct 33.9 L MCV 89.4 MCH 29.3 MCHC 32.7 RDW 13.1 Plt Count 248 MPV 10.2 Immature Gran % (Auto) 0.3 Neut % (Auto) 55.6 Lymph % (Auto) 29.1 Iron % (Auto) 5.8 Eos % (Auto) 8.3 H Baso % (Auto) 0.9 Lymph # (Auto) 1.7 Iron # (Auto) 0.3 Eos # (Auto) 0.5 H Baso # (Auto) 0.1 Abs Immat Gran (auto) 0.02 Absolute Neuts (auto) 3.3 Absolute Nucleated RBC 0.000 Nucleated RBC % (auto) 0.0 Sodium Potassium Chloride Carbon Dioxide Anion Gap BUN Creatinine Estim Creat Clear Calc Estimated GFR Random Glucose Fasting Glucose Calcium Preliminary micro results at discharge 05/13/21 09:34 Stool Culture - Preliminary Stool Normal so far. Discharge Plan Discharge Patient Disposition: Home, Self-Care Discharge Diagnosis: Diarrhea IBS Referrals: Champ Yusuf [Primary Care Provider] - 1 Week Discharge Medications: New loperamide 2 mg Capsule 2 mg PO Q4H PRN (Reason: after loose BM) Qty: 20 RF: 0 Continued omeprazole 20 mg capsule,delayed release(DR/EC) 1 cap PO BID RF: 0 fluticasone propion-salmeterol [Advair Diskus] 100-50 mcg/dose blister with device 1 puff PO BID RF: 0 albuterol sulfate 90 mcg/actuation HFA aerosol inhaler 2 puff PO QID RF: 0 clobetasol 0.05 % cream 1 appl topical BID RF: 0 Discharge Orders: Discharge Order (Routine); Ordered 05/15/21 Ordered By: [place] Diet: advance to usual diet and other Activity on Discharge: As tolerated Stand Alone Forms: Patient Portal Discharge page Care Plan Goals: Read below Health Concerns: Read below Plan of Treatment: Read below Assessment: You were admitted to the hospital for evaluation of diarrhea. Treated for possible infection and evaluated by classification and treatment director who did an upper and lower endoscopy showing no signs of infection. Antibiotics stopped and you can be discharged home advance your diet as tolerated. Advanced to gluten free diet The follow-up with Gastroenterology as outpatient as needed. Patient Instructions: Acute Diarrhea (ED)
--- NOTE | 2021-05-15 11:41 | MHC.CM.PN ---
PATIENT IS DISCHARGED HOME - SELF CARE. SPOUSE (IN ROOM) TO TRANSPORT. RN AWARE OF PLAN
--- NOTE | 2021-05-15 19:02 | PM.OP ---
Brief Operative Note Date of Service: 05/15/21 Pre-op diagnosis: Dysphagia, Diarrhea, Abnormal CT of colon/SI Post-op diagnosis: other (Hiatal Hernia, Esophageal Ring, Colon polyp, R/O Micorscopic colitis and Celiac disease) Procedure: EGD with biopsies, Colonoscopy to the cecum and TI with biopsies and hot snare polypectomy Surgeon: Gene Crowe Anesthesia: MAC Was an Jewelry Making Instructor used for this Procedure?: No Estimated blood loss (mL): 2.0 Pathology: other (A. Descending duodenum B. Gastric antrum C. EG Junction at 34cm D. Polyp at 40cm E. Terminal ileum F. Ascending colon G. Descending colon) Condition: stable Disposition: PACU
--- NOTE | 2021-05-16 00:16 | OP_ITS ---
SURGEON: Gene Crowe MD INDICATIONS: The patient presents for evaluation of gastroesophageal reflux, dysphagia, diarrhea, and abnormal CT scan of GI tract. Full consent obtained from the patient and her for this, including risks of bleeding and perforation. PREOPERATIVE DIAGNOSIS: POSTOPERATIVE DIAGNOSIS: PROCEDURE PERFORMED: Esophagogastroduodenoscopy with balloon dilation of distal esophageal ring, and biopsies, and colonoscopy to cecum and terminal ileum with hot snare polypectomy and biopsies. ESTIMATED BLOOD LOSS: COMPLICATIONS: ANESTHESIA: Monitored anesthesia care. ASSISTANTS: SPECIMENS: PREOPERATIVE DIAGNOSES: Gastroesophageal reflux and dysphagia, diarrhea, abnormal CT scan of GI tract. POSTOPERATIVE DIAGNOSES: Gastroesophageal reflux and dysphagia, diarrhea, abnormal CT scan of GI tract, mild distal esophageal ring, hiatal hernia, mild gastritis, rule out celiac disease, colon polyp, rule out microscopic colitis, diverticulosis, internal hemorrhoids. DESCRIPTION OF PROCEDURE: The patient was placed in the left lateral decubitus position. The Olympus video gastroscope was passed in the posterior oropharynx and upper esophagus under direct vision. The scope was passed slowly into the distal esophagus. The gastroesophageal junction appeared at 34 cm. There was a very slight irregularity consistent with reflux and possibly small areas of Alicia's mucosa. There was no esophagitis, ulceration, nor mass. There was a very minimal esophageal ring, but this was certainly not causing any obstruction. The scope was easily passed this into a small to moderate-sized hiatal hernia. The hiatal hernia mucosa appeared normal. The scope was advanced to pylorus. The duodenum was cannulated to the descending portion. The duodenum including the bulb appeared normal without mass or ulceration. Biopsies were obtained from the second and third portions of duodenum. The scope was withdrawn back to the stomach. The gastric antrum had some mild areas of erythema and edema, but no erosions or ulceration. There was good peristalsis. Biopsies were obtained from the gastric antrum. The scope was retroflexed visualizing the proximal stomach carefully, which appeared normal, without any sign of mass or ulceration. The scope was straightened out and withdrawn back to the esophagus. Given her symptomatology, I did use a [employer] incremental balloon to dilate the distal esophageal ring and EG junction from 19 mm to 20 mm at the recommended pressure for between 30 and 60 seconds each. Post dilation, there was really no appreciable heme nor effect on the minimal esophageal ring. I did obtain biopsies at the EG junction at 34 cm as well. The scope was withdrawn through the remainder of the esophagus, which appeared normal. The scope was withdrawn from the patient. She was turned around for the colonoscopy. The digital rectal exam revealed no abnormalities. The Olympus video pediatric colonoscope was entered into the rectum, advanced easily to the cecum. Once in the cecum, I did identify normal-appearing cecal pouch with appendiceal orifice and a normal-appearing ileocecal valve. The terminal ileum was cannulated and appeared normal. I did not visualize any sign of Crohn disease for the 5-10 cm of terminal ileum, I was able to visualize. Biopsies were obtained. The scope was withdrawn back in the colon. The entire cecum and ileocecal valve appeared normal. The scope was slowly withdrawn assessing all mucosal surfaces carefully. Preparation was excellent. At 40 cm, was an approximately 8-10 mm grossly adenomatous polyp, which was snared and recovered by suction. The polypectomy site appeared clean, without any sign of residual polyp nor bleeding. This was done with a hot snare. I did not visualize any sign of other polyps, colitis, nor angiodysplasia. Random biopsies were obtained in the ascending and descending colon. There was a mild amount of sigmoid diverticulosis. In the rectum, scope was retroflexed visualizing internal hemorrhoids, but no other pathology. The rectal mucosa appeared normal. The scope was straightened and withdrawn from the patient. She tolerated both procedures well and was returned to the recovery area in stable condition. IMPRESSION: 1. Small to moderate-sized hiatal hernia with minimal nonobstructing distal esophageal ring, status post balloon dilation. 2. Gastroesophageal reflux, rule out Alicia's esophagus. 3. Minimal gastritis, status post biopsy. 4. Rule out celiac disease. 5. Colon polyp, status post hot snare polypectomy. 6. Rule out microscopic colitis. 7. Diverticulosis. 8. Internal hemorrhoids. PLAN: The results of the pathology will be checked. She should not use any aspirin and NSAIDs, nor any other blood thinners for 1 week. She will continue her oral PPI and have her diet advanced. I would recommend a lactose-free diet. Given no signs of colitis and a negative stool specimen for C difficile, I would stop the vancomycin at this point and observe things. I would recommend she use Imodium p.r.n. I will plan to see her in the office for followup visit as well. I would recommend a repeat colonoscopy in 5 years for further screening assuming the polyp to be a tubular adenoma. If she has continued significant symptoms of reflux, we could then consider workup for hiatal hernia surgery with esophageal motility and 24 hour pH studies. If she has continued problems with significant diarrhea and all the biopsies are nonrevealing, and followup stool specimen for C difficile is again negative, given the previous history of C difficile, I would recommend a trial of some cholestyramine and Lomotil. This has all been discussed with her . MD TAMIKO Cleary/KENNA / [id number]
--- NOTE | 2021-05-16 04:31 | CONS_ITS ---
DATE OF SERVICE: 05/14/2021 REASON FOR CONSULTATION: Diarrhea, abnormal CT of GI tract, gastroesophageal reflux and dysphagia. HISTORY OF PRESENT ILLNESS: This has been obtained from the patient, her , and the medical record. The patient is a 61-year-old female well known to me from a hospitalization in late March for significant C difficile infection. At that time, she was admitted with significant diarrhea and dehydration and was found to have positive stool specimen for C difficile in the ER. She does have some baseline history of irritable bowel syndrome for which she had undergone previous colonoscopies in [place]. She was treated with antibiotics when she was in the [facility] shortly before the hospitalization in March. Due to worsening symptoms of diarrhea, she came to the ER and was admitted with significant dehydration, leukocytosis, inflammatory changes of the GI tract seen on CT scan and a positive stool for C difficile. She was treated with p.o. vancomycin and IV Flagyl and did gradually improve. She did not undergo any endoscopies while she was in the hospital at that time. She was discharged on April 28 and describes that she was doing well and finished her course of vancomycin a couple days before readmission here. Shortly after stopping the vancomycin, she began having significant diarrhea again and was concerned about dehydration and she was admitted. She was found to have a low magnesium level. Since admission here, she does report that she is actually feeling better. Repeat stool specimen was negative for C diff, but she has been on oral vancomycin since admission. She presently denies any abdominal pain. She has had no vomiting. Her appetite is actually good at the present time. There has been no signs of GI bleeding. MEDICATIONS: At home included albuterol inhaler, Advair, Imodium p.r.n., omeprazole, and the recent course of vancomycin that finished a couple of days before admission here. PAST MEDICAL HISTORY: C difficile infection at the end of March. Asthma. Cholecystectomy. Tonsillectomy. Gastroesophageal reflux. Irritable bowel syndrome. She describes previous colonoscopies in [place] as well as a previous upper endoscopy as well. She denies history of AL, diabetes, stroke, nor kidney disease. 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 She is . She does not smoke or use any significant amounts of alcohol. FAMILY HISTORY: Noncontributory, although she does have a niece with Crohn disease. REVIEW OF SYSTEMS: CONSTITUTIONAL: For the couple weeks she was at home she was feeling better in regard to the previous episode of C difficile. SKIN: Without rash. No pruritus. CARDIAC: No chest pain. PULMONARY: No cough. No hemoptysis. GI: As above. URINARY: No dysuria or hematuria. NEUROLOGIC: No headache or seizures. PHYSICAL EXAMINATION: GENERAL: Presently, she appears alert and comfortable. She definitely appears much better than when I 1st saw her back in March when she was admitted with severe C difficile infection. NECK: Supple. CHEST: Normal S1, S2. ABDOMEN: Soft, nondistended, normal bowel sounds. There is no tenderness, mass, rebound, or guarding. LABORATORY DATA: White blood cell count 14.2, hemoglobin 14.6. Normal electrolytes. BUN 10, creatinine 0.7, magnesium 0.7. Normal LFTs. Albumin 4.0. Stool was negative for C difficile. COVID was negative. Stool for ova and parasites pending. Stool specimens done on March were negative for ova and parasite and were also negative for Cryptosporidium. Stool showed a few wbcs. Stool for Cyclospora and Isospora negative at the end of March as well. Stool for Giardia is currently pending. Her CT scan on this admission again revealed some nonspecific mild mural thickening involving the ileum and distal ileal loops. There is no sign of bowel obstruction nor any definitive colitis. IMPRESSION: At this point, the patient appears quite stable with a benign abdominal exam. Her recurrent diarrhea shortly after finishing vancomycin certainly makes one think of a relapsing C difficile infection, although the current stool for C difficile is negative and she appears well. However, I would agree with current plan of treating with vancomycin, but I would recommend a colonoscopy for evaluation of her ongoing symptoms to assess for any component of inflammatory bowel disease, to inspect for pseudomembranous colitis, which could make a diagnosis of C difficile on that basis, and to rule out other entities such as microscopic colitis. I would also recommend an upper endoscopy for evaluation of the chronic upper GI symptoms in regard to the reflux and dysphagia, at which time she can have possible balloon dilation of the esophagus, if indeed there is esophageal ring or stricture, as well as also have duodenal biopsies to assess for celiac disease in regard to the chronic diarrhea. Full consent obtained from her for both procedures, including risks of bleeding and perforation. We shall try to get these done as an inpatient. The procedures will be done with monitored anesthesia care. The Lovenox will be held. This has all been discussed with patient and in detail and they are comfortable with the plan. Thank you for the consultation. MD TAMIKO Cleary/KENNA / [id number]
== END 2021-05-15 12:44 | disposition home or self-care (01) | DRG 241 ==
LOC: HO.ED 15:46 → HO.EDOVER 15:49 → HO.S3 05-14 00:25
PROVIDERS: Internal Medicine; Physician Assistant; Admitting Provider Internal Medicine; Emergency Provider Emergency Medicine Emergency Medical Services; PCP Hospitalist; Visit Provider Student in an Organized Health Care Education/Training Program
PROC: 0D738ZZ Dilation of Lower Esophagus, Via Natural or Artificial Opening Endoscopic (ICD-10-PCS; CPT 43249; principal; 2021-05-15 07:30)
DX: K29.70 Gastritis, unspecified, without bleeding (principal); E83.42 Hypomagnesemia; K22.2 Esophageal obstruction; J45.20 Mild intermittent asthma, uncomplicated; F17.210 Nicotine dependence, cigarettes, uncomplicated; K64.8 Other hemorrhoids; K44.9 Diaphragmatic hernia without obstruction or gangrene; K63.5 Polyp of colon; Z20.822 Contact with and (suspected) exposure to COVID-19; Z71.6 Tobacco abuse counseling; Z88.0 Allergy status to penicillin; Z88.2 Allergy status to sulfonamides; Z79.51 Long term (current) use of inhaled steroids; Z79.899 Other long term (current) drug therapy
CPT/HCPCS: 43249; 43239; 45385; 45380; 36415; 74177; 80048; 80053; 81003; 83735; 85025; 85027; 87045; 87046; 87177; 87209; 87329; 87493; 87635; 88305; 88342; 89055; 96361; 96365; 96366; 99218; 99285; C1726; J1650; J3475; Q9967

== ENCOUNTER 2021-05-26 13:55 | Outpatient (REF) | payer MEDICAID, SELFPAY ==
[2021-05-27 14:01] LABS: Immunoglobulin A 149 mg/dL (47-310)
[2021-05-27 15:02] LABS: Gliadin Deamidated IgA Ab <1.0 U/mL; Gliadin Deamidated IgG Ab <1.0 U/mL; Transglutaminase Ab IgG <1.0 U/mL; Transglutaminase IgA <1.0 U/mL
[2021-05-29 10:57] LABS: Endomysial IgA Antibody Negative (Negative)
== END 2021-05-26 13:56 | disposition home or self-care (01) ==
LOC: HO.LAB 13:55
PROVIDERS: PCP Hospitalist; Visit Provider Internal Medicine
DX: R19.7 Diarrhea, unspecified (principal); K29.80 Duodenitis without bleeding
CPT/HCPCS: 36415; 82784; 83516; 86255; 86256

== ENCOUNTER 2021-06-03 12:02 | Outpatient (REF) | payer MEDICAID, SELFPAY ==
[2021-06-03 12:19] LABS: MANUAL DIFF FLAG NO
[2021-06-03 12:25] LABS: Basophils Percent Auto 0.4 % (0-2); Eosinophils Absolute Auto 0.4 X10*3/uL (0.0-0.4); Eosinophils Percent Auto 5.4 % (0-4); Hematocrit 37.9 % (37.0-47.0); Hemoglobin 12.3 g/dl (12.0-16.0); Imm Gran Abs Auto 0.02 X10*3/uL (0.00-0.03); Imm Gran Pct Auto 0.3 % (0.0-0.4); Lymphocytes Absolute Auto 2.1 X10*3/uL (1.2-4.9); Lymphocytes Percent Auto 28.5 % (20-40); Mean Corpuscular HGB Conc 32.5 g/dl (31.0-35.0); Mean Corpuscular Volume 89.4 fL (80.0-98.0); Mean Platelet Volume 10.4 fL (9.4-12.3); Monocytes Absolute Auto 0.4 X10*3/uL (0.1-1.2); Monocytes Percent Auto 5.6 % (2-11); Neutrophils Absolute Auto 4.4 x10*3/uL (2.0-8.3); Neutrophils Percent Auto 59.8 % (45-73); Platelet Count 238 X10*3/uL (160-400); Red Blood Count 4.24 X10*6/uL (4.20-5.50); Red Cell Distribution Width 13.7 % (11.0-16.0); White Blood Count 7.4 X10*3/uL (4.8-10.8)
[2021-06-03 13:04] LABS: Alanine Aminotransferase 21 U/L (0-31); Albumin Level 4.2 g/dL (3.5-5.0); Alkaline Phosphatase 69 U/L (39-117); Amylase 36 U/L (28-100); Anion Gap 16 (12-20); Aspartate Amino Transferase 36 U/L (5-31); Bilirubin Direct 0.2 mg/dL (0.0-0.5); Bilirubin Total 0.5 mg/dL (0.0-1.0); Blood Urea Nitrogen 6 mg/dL (9-16); C Reactive Protein 0.88 mg/dL (< or = 0.50); Calcium 7.5 mg/dL (8.4-10.2); Carbon Dioxide 31 mmol/L (22-29); Chloride 103 mmol/L (96-108); Estimated Glomerular Filt Rate > 60; Glucose Random 96 mg/dL (60-115); Lipase 26 U/L (8-78); Magnesium < 0.6 mg/dL (1.6-2.6); Potassium 3.3 mmol/L (3.3-5.1); Sodium 147 mmol/L (135-145); Total Protein 6.7 g/dL (6.5-8.0)
[2021-06-03 13:16] LABS: Erythrocyte Sedimentation Rate 25 MM/HR (0-20)
[2021-06-03 13:21] LABS: TSH reflex Free T4 0.91 uIU/mL (0.32-4.0)
== END 2021-06-03 12:03 | disposition home or self-care (01) ==
LOC: HO.LAB 12:02
PROVIDERS: PCP Hospitalist; Visit Provider Internal Medicine
DX: R19.7 Diarrhea, unspecified (principal); R53.1 Weakness; R11.0 Nausea
CPT/HCPCS: 36415; 80048; 80076; 82150; 83690; 83735; 84443; 85025; 85652; 86140

== ENCOUNTER 2021-06-03 15:51 | Emergency (ER) | payer MEDICAID, SELFPAY ==
[2021-06-03 16:05] VITALS: BP 147/78; PULSE 72; RESP 18; TEMP 36.2; O2SAT 98; BMI 27.3
--- NOTE | 2021-06-03 16:23 | ECG_ITS ---
Test Reason : ABD PAIN Blood Pressure : / mmHG Vent. Rate : 064 BPM Atrial Rate : 064 BPM P-R Int : 146 ms QRS Dur : 080 ms QT Int : 420 ms P-R-T Axes : 004 023 040 degrees QTc Int : 433 ms Normal sinus rhythm Normal ECG When compared with ECG of 24-APR-2021 17:25, Nonspecific T wave abnormality no longer evident in Anterolateral leads Referred By: Genevieve Mahmood Electronically Signed By:Soto Ramos
[2021-06-03 16:58] LABS: MANUAL DIFF FLAG NO
[2021-06-03 17:00] LABS: Basophils Percent Auto 0.3 % (0-2); Eosinophils Absolute Auto 0.3 X10*3/uL (0.0-0.4); Eosinophils Percent Auto 3.5 % (0-4); Hematocrit 35.9 % (37.0-47.0); Hemoglobin 11.5 g/dl (12.0-16.0); Imm Gran Abs Auto 0.03 X10*3/uL (0.00-0.03); Imm Gran Pct Auto 0.3 % (0.0-0.4); Lymphocytes Percent Auto 22.8 % (20-40); Mean Corpuscular Hemoglobin 28.6 pg (27.0-33.0); Mean Corpuscular Volume 89.3 fL (80.0-98.0); Mean Platelet Volume 10.7 fL (9.4-12.3); Monocytes Absolute Auto 0.4 X10*3/uL (0.1-1.2); Monocytes Percent Auto 4.5 % (2-11); Neutrophils Absolute Auto 6.1 x10*3/uL (2.0-8.3); Neutrophils Percent Auto 68.6 % (45-73); Platelet Count 227 X10*3/uL (160-400); Red Blood Count 4.02 X10*6/uL (4.20-5.50); Red Cell Distribution Width 13.4 % (11.0-16.0); White Blood Count 8.9 X10*3/uL (4.8-10.8)
[2021-06-03] MEDS: Magnesium Sulfate/H2O 2 GM/50 ML PIGGYBACK IV ×2 (17:09→20:25)
[2021-06-03 17:20] LABS: COVID-19 Test Negative (Negative); IDNOW Serial# 9DD0AD1C
--- NOTE | 2021-06-03 17:20 | ED_ITS ---
HPI - Recheck/Abnormal Lab/Rx General Chief Complaint: Recheck/Abnormal Lab/Rx Stated Complaint: Dr. Crowe told pt to come to ER low magnesium Time Seen by Provider: 06/03/21 16:23 Source: patient Mode of arrival: ambulatory Limitations: no limitations History of Present Illness HPI narrative: 61yo female with a history of C diff not currently on any antibiotics here with complaints of abnormal blood work. Patient tells me that she had C diff in the end of March and early April after traveling to the [facility]. She completed a course of antibiotics but was still having some residual abdominal discomfort and nausea and diarrhea and has been followed by Gastroenterology. She tells me that she was seen by Dr. Crowe today in the office for follow-up. She has had poor p.o. intake and some intermittent nausea. She denies any abdominal pain or diarrhea currently. However he checked labs and her magnesium level was 0.6 so he referred her into the emergency department for further evaluation. She is complaining of some generalized weakness but no other additional complaints. She is not currently on any magnesium supplements. Related Data Home Medications Medication Instructions Recorded Confirmed albuterol sulfate 90 mcg/actuation 2 puff PO QID 04/24/21 05/13/21 aerosol inhaler fluticasone 100 mcg-salmeterol 50 1 puff PO BID 04/24/21 05/13/21 mcg/dose blistr powdr for inhalation (Advair Diskus) omeprazole 20 mg capsule,delayed 1 cap PO BID 04/24/21 05/13/21 release clobetasol 0.05 % topical cream 1 appl TOPICAL BID 05/13/21 05/13/21 Previous Rx's Medication Instructions Recorded loperamide 2 mg capsule 2 mg PO Q4H PRN #20 cap 05/15/21 magnesium oxide 400 mg PO DAILY #30 cap 06/03/21 Allergies Allergy/AdvReac Type Severity Reaction Status Date / Time metronidazole [From Flagyl] Allergy Intermediate Rash Verified 04/28/21 11:24 amoxicillin [From AUGMENTIN] Allergy Mild NAUSEA & Verified 04/24/21 20:16 VOMITING clavulanic acid Allergy Mild NAUSEA & Verified 04/24/21 20:16 [From AUGMENTIN] VOMITING Penicillins [PCN] Allergy Mild HIVES Verified 04/24/21 20:16 Sulfa (Sulfonamide Allergy Mild HIVES Verified 04/24/21 20:16 Antibiotics) [SULFA (SULFONAMIDE ANTIBIOTICS)] Review of Systems Review of Systems: Yes all other systems are reviewed and are negative Constitutional: Constitutional: Reports no additional constitutional complaints, Denies body ache(s), Denies chills, Denies fever(s), Denies headache(s) and Reports weakness Eyes: Eyes: Reports no additional eye complaints and Denies change in vision ENT: Reports system reviewed and no additional complaints, except as documented, Denies dizziness, Denies headache(s), Denies nasal congestion, Denies nasal discharge and Denies neck pain Cardiovascular: Cardiovascular: Reports no additional cardiovascular complaints, Denies chest pain, Denies leg edema and Denies dyspnea Respiratory: Respiratory: Reports no additional respiratory complaints, Denies cough and Denies dyspnea Gastrointestinal: Gastrointestinal: Reports no additional gastrointestinal complaints, Denies abdominal pain, Denies diarrhea, Denies nausea and Denies vomiting Genitourinary: Genitourinary: Reports no additional female genitourinary complaints and Denies urinary incontinence Musculoskeletal: Musculoskeletal: Reports no additional musculoskeletal comp laints, Denies back pain, Denies arthralgias, Denies joint swelling, Denies neck pain, Denies numbness and Denies tingling Integumentary/Breasts: Skin/Breast: Reports system reviewed and no additional complaints, except as docu and Denies rash Neurologic: Reports system reviewed and no additional complaints, except as documented, Denies Abnormal speech present, Denies dizziness, Denies headache(s), Denies numbness, Denies tingling and Reports weakness PMFSH Past Medical History Attestation statement: The following information was validated with the patient. Source: old records reviewed and nursing notes reviewed Medical History C. difficile diarrhea Surgical History History of laparoscopic cholecystectomy Family History Family History Other IBD (inflammatory bowel disease) Social History Social History Household Members: Spouse Housing: House Do you presently have visiting nurse or other home services: No Alcohol intake: current Alcohol intake frequency: holidays/special occasions only Patient Tobacco Use Status: Current everyday Tobacco user Tobacco use type: Cigarette Cigarette Packs Per Day: 0.5 Cigarettes Per Day: 10.0 Advance Directives: No Advance Directives Information Provided: No service: No Current occupational status: employed and other Physical Exam Vital Signs: Vital Signs: Last Vital Signs Temp 97.1 F 06/03/21 16:05 Pulse 63 06/03/21 20:34 Resp 12 06/03/21 20:34 BP 107/60 06/03/21 20:34 Pulse Ox 97 06/03/21 20:34 BMI result Body Mass Index 27.3 Const: General: cooperative, healthy appearing, comfortable and no acute distress Orientation/consciousness: patient oriented x3 Limitations: no limitations HENMT: Head: Yes normal to inspection Ears: hearing grossly normal bilaterally General nose exam: Normal external nose present Face and sinus: Yes normal facial exam Mouth: Normal oral and palatal mucosa present Throat: Yes posterior oropharynx normal Eyes: General: appearance normal, both eyes and all related structures Pupils: Equal, round and reactive pupils present Neck: Neck: Yes normal visual inspection Chest: Chest palpation & inspection: normal inspection of the chest Resp: Effort & Inspection: normal respiratory effort Auscultation: clear to auscultation bilaterally Cardio: Rate: regular rate Rhythm: regular rhythm Peripheral pulses: Peripheral pulses 2+ throughout GI: Inspection: Yes normal to inspection Palpation (GI): Soft to palpation and nontender Auscultation: normal bowel sounds Back/Spine/Pelvis: Thoracic/Lumbar Spine: thoracic and lumbar spine normal to inspection Skin: General skin exam: no rashes or lesions noted Neuro: General: patient oriented x3, no focal motor deficits and normal sensation to monofilament Cranial nerves: Yes Equal, round and reactive pupils present Cognition (Neuro): normal cognition Speech: No Abnormal speech present Gait exam (Neuro): Normal gait present Motor exam (neuro): 5/5 motor strength present throughout Extrem: General: Yes normal to inspection, Yes no pedal edema and Yes no calf tenderness Course Course Course Narrative: 61-year-old female here with reports of abnormal labs sent from the GI office for a magnesium level of 0.6. She recovered from C diff colitis but has had some residual abdominal pain which is intermittent with diarrhea and nausea as well as poor p.o. intake and is being followed by Gastroenterology. Will check labs, EKG. If Mag is low will give 2 g of magnesium then repeat level. 2000- magnesium now 1.0 from 0.6 after 2 g of magnesium. plan to repeat dose and then repeat lab result. 2330- repeat magnesium level 1.6. All other labs are unremarkable. Will start patient on supplemental magnesium and have her follow-up with GI for repeat level this week. We discussed eating magnesium rich foods. Reviewed worrisome signs and symptoms of when to return to the emergency department. Comfortable discharge home. MDM - Recheck/Abnormal Lab/Rx Medical Records Attestation: I reviewed the patient's medical records. Lab Data Attestation: I reviewed the patient's lab results. Result diagrams: 06/03/21 16:46 06/03/21 16:46 Labs: Lab Results 06/03/21 06/03/21 06/03/21 Range/Units 16:46 16:46 16:46 WBC 8.9 (4.8-10.8) X10*3/uL RBC 4.02 L (4.20-5.50) X10*6/uL Hgb 11.5 L (12.0-16.0) g/dl Hct 35.9 L (37.0-47.0) % MCV 89.3 (80.0-98.0) fL MCH 28.6 (27.0-33.0) pg MCHC 32.0 (31.0-35.0) g/dl RDW 13.4 (11.0-16.0) % Plt Count 227 (160-400) X10*3/uL MPV 10.7 (9.4-12.3) fL Immature Gran % (Auto) 0.3 (0.0-0.4) % Neut % (Auto) 68.6 (45-73) % Lymph % (Auto) 22.8 (20-40) % [place] % (Auto) 4.5 (2-11) % Eos % (Auto) 3.5 (0-4) % Baso % (Auto) 0.3 (0-2) % Lymph # (Auto) 2.0 (1.2-4.9) X10*3/uL [place] # (Auto) 0.4 (0.1-1.2) X10*3/uL Eos # (Auto) 0.3 (0.0-0.4) X10*3/uL Baso # (Auto) 0.0 (0.0-0.2) X10*3/uL Abs Immat Gran (auto) 0.03 (0.00-0.03) X10*3/uL Absolute Neuts (auto) 6.1 (2.0-8.3) x10*3/uL Absolute Nucleated RBC 0.000 (0.0-0.012) X10*3/uL Nucleated RBC % (auto) 0.0 (0.0-0.2) /100WBC Sodium 146 H (135-145) mmol/L Potassium 3.4 (3.3-5.1) mmol/L Chloride 104 (96-108) mmol/L Carbon Dioxide 32 H (22-29) mmol/L Anion Gap 13 (12-20) BUN 6 L (9-16) mg/dL Creatinine 0.74 (0.5-1.4) mg/dL Estim Creat Clear Calc 87.6 Estimated GFR > 60 Random Glucose 109 (60-115) mg/dL Calcium 7.0 L D (8.4-10.2) mg/dL Magnesium < 0.6 L* (1.6-2.6) mg/dL COVID-19 (KJ) Negative (Negative) COVID-19 Clin Com See Note 06/03/21 06/03/21 Range/Units 19:38 22:24 WBC (4.8-10.8) X10*3/uL RBC (4.20-5.50) X10*6/uL Hgb (12.0-16.0) g/dl Hct (37.0-47.0) % MCV (80.0-98.0) fL MCH (27.0-33.0) pg MCHC (31.0-35.0) g/dl RDW (11.0-16.0) % Plt Count (160-400) X10*3/uL MPV (9.4-12.3) fL Immature Gran % (Auto) (0.0-0.4) % Neut % (Auto) (45-73) % Lymph % (Auto) (20-40) % [place] % (Auto) (2-11) % Eos % (Auto) (0-4) % Baso % (Auto) (0-2) % Lymph # (Auto) (1.2-4.9) X10*3/uL [place] # (Auto) (0.1-1.2) X10*3/uL Eos # (Auto) (0.0-0.4) X10*3/uL Baso # (Auto) (0.0-0.2) X10*3/uL Abs Immat Gran (auto) (0.00-0.03) X10*3/uL Absolute Neuts (auto) (2.0-8.3) x10*3/uL Absolute Nucleated RBC (0.0-0.012) X10*3/uL Nucleated RBC % (auto) (0.0-0.2) /100WBC Sodium (135-145) mmol/L Potassium (3.3-5.1) mmol/L Chloride (96-108) mmol/L Carbon Dioxide (22-29) mmol/L Anion Gap (12-20) BUN (9-16) mg/dL Creatinine (0.5-1.4) mg/dL Estim Creat Clear Calc Estimated GFR Random Glucose (60-115) mg/dL Calcium (8.4-10.2) mg/dL Magnesium 1.0 L* 1.6 (1.6-2.6) mg/dL COVID-19 (KJ) (Negative) COVID-19 Clin Com Discharge Plan Discharge Clinical Impression: Hypomagnesemia Patient Disposition: Home, Self-Care Instructions: Hypomagnesemia (ED) Additional Instructions: Eat a diet rich in magnesium Your repeat magnesium level was 1.6 Follow-up with Gastroenterology to have a repeat level by Wednesday start your magnesium supplements tomorrow Prescriptions: New magnesium oxide 400 mg magnesium capsule 400 mg PO DAILY Qty: 30 RF: 0 No Action omeprazole 20 mg capsule,delayed release(DR/EC) 1 cap PO BID RF: 0 fluticasone propion-salmeterol [Advair Diskus] 100-50 mcg/dose blister with device 1 puff PO BID RF: 0 albuterol sulfate 90 mcg/actuation HFA aerosol inhaler 2 puff PO QID RF: 0 clobetasol 0.05 % cream 1 appl topical BID RF: 0 loperamide 2 mg Capsule 2 mg PO Q4H PRN (Reason: after loose BM) Qty: 20 RF: 0 Referrals: Gene Crowe [Physician] - 2 days Interventions: ED Discharge Assessment Last Done: 06/03/21 23:28 Discharge Date/Time: 06/03/21 23:30
[2021-06-03 17:28] LABS: Anion Gap 13 (12-20); Blood Urea Nitrogen 6 mg/dL (9-16); Carbon Dioxide 32 mmol/L (22-29); Chloride 104 mmol/L (96-108); Creatinine Clr Calc Pharmacy 87.6; Estimated Glomerular Filt Rate > 60; Glucose Random 109 mg/dL (60-115); Magnesium < 0.6 mg/dL (1.6-2.6); Potassium 3.4 mmol/L (3.3-5.1); Sodium 146 mmol/L (135-145)
[2021-06-03] MEDS: Omeprazole 40 MG CAPSULE.DR PO (19:23)
[2021-06-03 20:34] VITALS: BP 107/60; PULSE 63; RESP 12; O2SAT 97
--- NOTE | 2021-06-03 22:32 | PC.NURSE ---
PT had third lab drawn for mag. Awaiting results at this time. PT is resulting comfortably in bed at this time.
[2021-06-03 22:46] LABS: Magnesium 1.6 mg/dL (1.6-2.6)
== END 2021-06-03 23:30 | disposition home or self-care (01) ==
PROVIDERS: Emergency Medicine; Nurse Practitioner Family; Emergency Provider Emergency Medicine Emergency Medical Services; PCP Hospitalist
DX: E83.42 Hypomagnesemia (principal); R79.89 Other specified abnormal findings of blood chemistry; F17.210 Nicotine dependence, cigarettes, uncomplicated; Z71.6 Tobacco abuse counseling; Z20.822 Contact with and (suspected) exposure to COVID-19; Z79.899 Other long term (current) drug therapy
CPT/HCPCS: 36415; 80048; 83735; 85025; 87635; 93005; 96365; 96366; 99284; J3475

== ENCOUNTER 2021-06-10 18:06 | Emergency (ER) | payer MEDICAID, SELFPAY ==
[2021-06-10 18:11] VITALS: BP 138/88; PULSE 82; RESP 18; TEMP 36.6; O2SAT 98; BMI 27.3
[2021-06-10 19:28] LABS: Hematocrit 36.9 % (37.0-47.0); Hemoglobin 12.1 g/dl (12.0-16.0); Mean Corpuscular HGB Conc 32.8 g/dl (31.0-35.0); Mean Corpuscular Hemoglobin 29.7 pg (27.0-33.0); Mean Corpuscular Volume 90.4 fL (80.0-98.0); Platelet Count 299 X10*3/uL (160-400); Red Blood Count 4.08 X10*6/uL (4.20-5.50); White Blood Count 7.8 X10*3/uL (4.8-10.8)
[2021-06-10 20:21] LABS: Anion Gap 14 (12-20); Blood Urea Nitrogen 13 mg/dL (9-16); Calcium 8.9 mg/dL (8.4-10.2); Carbon Dioxide 30 mmol/L (22-29); Chloride 103 mmol/L (96-108); Creatinine Clr Calc Pharmacy 78.1; Estimated Glomerular Filt Rate > 60; Glucose Random 88 mg/dL (60-115); Magnesium 0.8 mg/dL (1.6-2.6); Potassium 3.6 mmol/L (3.3-5.1); Sodium 143 mmol/L (135-145)
--- NOTE | 2021-06-10 20:54 | ECG_ITS ---
Test Reason : low magnesium Blood Pressure : / mmHG Vent. Rate : 061 BPM Atrial Rate : 061 BPM P-R Int : 164 ms QRS Dur : 086 ms QT Int : 430 ms P-R-T Axes : 046 008 052 degrees QTc Int : 432 ms Normal sinus rhythm Normal ECG When compared with ECG of 03-JUN-2021 16:39, No significant change was found Referred By: Lily Mahoney Electronically Signed By:GARCIA ZAYAS MD
[2021-06-10] MEDS: Magnesium Sulfate/H2O 2 GM/50 ML PIGGYBACK IV (21:10)
--- NOTE | 2021-06-10 23:29 | ED.GENADULT ---
HPI - General Adult General Chief complaint: Recheck/Abnormal Lab/Rx Stated complaint: told pt to come low magnesium Time Seen by Provider: 06/10/21 20:39 History of Present Illness HPI narrative: Patient is 61-year-old female presents today with having low magnesium. Patient from home. Positive history of C diff. Have positive history of dehydration. Was seen approximately 1 week ago for low magnesium. Patient presented today feeling well. Had labs redrawn showed low magnesium. No fever no chills no nausea no vomiting no diarrhea no generalized malaise. Patient has been seen by GI specialist. Question celiac disease. Patient denies any drinking history. No history of kidney problems. Patient from home. No diaphoresis. No chest pain no symptoms. Related Data Home Medications Medication Instructions Recorded Confirmed albuterol sulfate 90 mcg/actuation 2 puff PO QID 04/24/21 05/13/21 aerosol inhaler fluticasone 100 mcg-salmeterol 50 1 puff PO BID 04/24/21 05/13/21 mcg/dose blistr powdr for inhalation (Advair Diskus) omeprazole 20 mg capsule,delayed 1 cap PO BID 04/24/21 05/13/21 release clobetasol 0.05 % topical cream 1 appl TOPICAL BID 05/13/21 05/13/21 Previous Rx's Medication Instructions Recorded loperamide 2 mg capsule 2 mg PO Q4H PRN #20 cap 05/15/21 magnesium oxide 400 mg PO DAILY #30 cap 06/03/21 Allergies Allergy/AdvReac Type Severity Reaction Status Date / Time metronidazole [From Flagyl] Allergy Intermediate Rash Verified 04/28/21 11:24 amoxicillin [From AUGMENTIN] Allergy Mild NAUSEA & Verified 04/24/21 20:16 VOMITING clavulanic acid Allergy Mild NAUSEA & Verified 04/24/21 20:16 [From AUGMENTIN] VOMITING Penicillins [PCN] Allergy Mild HIVES Verified 04/24/21 20:16 Sulfa (Sulfonamide Allergy Mild HIVES Verified 04/24/21 20:16 Antibiotics) [SULFA (SULFONAMIDE ANTIBIOTICS)] Review of Systems Review of Systems: No coughing or congestion or upper respiratory symptoms no diaphoresis. No fever no chills no nausea no vomiting no diarrhea Yes all other systems are reviewed and are negative PMFSH Past Medical History Medical History C. difficile diarrhea Surgical History History of laparoscopic cholecystectomy Family History Family History Other IBD (inflammatory bowel disease) Social History Social History Household Members: Spouse Housing: House Do you presently have visiting nurse or other home services: No Alcohol intake: current Alcohol intake frequency: holidays/special occasions only Patient Tobacco Use Status: Current everyday Tobacco user Tobacco use type: Cigarette Cigarette Packs Per Day: 0.5 Cigarettes Per Day: 10.0 Advance Directives: No Advance Directives Information Provided: Yes service: No Current occupational status: employed and other Physical Exam Vital Signs: Vital Signs: Last Vital Signs Temp 97.8 F 06/10/21 18:11 Pulse 82 06/10/21 18:11 Resp 18 06/10/21 18:11 BP 138/88 06/10/21 18:11 Pulse Ox 98 06/10/21 18:11 BMI result Body Mass Index 27.3 Appearance: Alert. Oriented X3. No acute distress. Eyes: Pupils equal, round and reactive to light. ENT: Pharynx normal. Neck: Normal inspection. Neck supple. No lymph nodes noted. No crepitus CVS: Normal heart rate and rhythm. Pulses normal. Normal S1 and S2 Respiratory: No respiratory distress. Breath sounds normal. No Wheezing. No rales Abdomen: Soft and nontender. No rigidity. No distention. good BS x4 Skin: Skin warm and dry. Normal skin color. Normal skin turgor. Extremities: No lower extremity edema. Neurovascular intact to all extremities. No Lacerations. No Rash Neuro: Oriented X 3. No motor deficit. No sensory deficit. Moving all extermities. No slurred speech Medical Decision Making MDM Narrative Medical decision making narrative: patient's magnesium was 0.8. Repleted magnesium was 1.6. Patient already have magnesium supplement at home will take it twice a day. Will have patient follow up with Nephrology as well. Currently in stable condition with discharge home. Lab Data Result diagrams: 06/10/21 19:23 06/10/21 23:55 Labs: Lab Results 06/10/21 06/10/21 06/10/21 Range/Units 19:23 19:23 23:55 WBC 7.8 (4.8-10.8) X10*3/uL RBC 4.08 L (4.20-5.50) X10*6/uL Hgb 12.1 (12.0-16.0) g/dl Hct 36.9 L (37.0-47.0) % MCV 90.4 (80.0-98.0) fL MCH 29.7 (27.0-33.0) pg MCHC 32.8 (31.0-35.0) g/dl RDW 14.0 (11.0-16.0) % Plt Count 299 D (160-400) X10*3/uL MPV 10.0 (9.4-12.3) fL Absolute Nucleated RBC 0.000 (0.0-0.012) X10*3/uL Nucleated RBC % (auto) 0.0 (0.0-0.2) /100WBC Sodium 143 143 (135-145) mmol/L Potassium 3.6 3.4 (3.3-5.1) mmol/L Chloride 103 106 (96-108) mmol/L Carbon Dioxide 30 H 29 (22-29) mmol/L Anion Gap 14 11 L (12-20) BUN 13 D 11 (9-16) mg/dL Creatinine 0.83 0.72 (0.5-1.4) mg/dL Estim Creat Clear Calc 78.1 90.1 Estimated GFR > 60 > 60 Random Glucose 88 96 (60-115) mg/dL Calcium 8.9 D 8.5 (8.4-10.2) mg/dL Magnesium 0.8 L* 1.6 (1.6-2.6) mg/dL Discharge Plan Discharge Clinical Impression: Hypomagnesemia Patient Disposition: Home, Self-Care Instructions: Hypomagnesemia (ED) Prescriptions: No Action magnesium oxide 400 mg magnesium capsule 400 mg PO DAILY Qty: 30 RF: 0 omeprazole 20 mg capsule,delayed release(DR/EC) 1 cap PO BID RF: 0 fluticasone propion-salmeterol [Advair Diskus] 100-50 mcg/dose blister with device 1 puff PO BID RF: 0 albuterol sulfate 90 mcg/actuation HFA aerosol inhaler 2 puff PO QID RF: 0 clobetasol 0.05 % cream 1 appl topical BID RF: 0 loperamide 2 mg Capsule 2 mg PO Q4H PRN (Reason: after loose BM) Qty: 20 RF: 0 Referrals: Champ Yusuf [Primary Care Provider] - 2 days Calvin Yanez MD [Physician] - 2 days
[2021-06-11 00:32] LABS: Anion Gap 11 (12-20); Blood Urea Nitrogen 11 mg/dL (9-16); Calcium 8.5 mg/dL (8.4-10.2); Carbon Dioxide 29 mmol/L (22-29); Chloride 106 mmol/L (96-108); Creatinine Clr Calc Pharmacy 90.1; Estimated Glomerular Filt Rate > 60; Glucose Random 96 mg/dL (60-115); Magnesium 1.6 mg/dL (1.6-2.6); Potassium 3.4 mmol/L (3.3-5.1); Sodium 143 mmol/L (135-145)
== END 2021-06-11 00:44 | disposition home or self-care (01) ==
PROVIDERS: Emergency Provider Emergency Medicine Emergency Medical Services; PCP Hospitalist
DX: E83.42 Hypomagnesemia (principal); F17.200 Nicotine dependence, unspecified, uncomplicated
CPT/HCPCS: 36415; 80048; 83735; 85027; 93005; 96365; 99283; 99284; J3475

== ENCOUNTER 2021-07-29 09:57 | Outpatient (REF) | payer MEDICAID, SELFPAY ==
[2021-07-29 11:23] LABS: Magnesium 2.1 mg/dL (1.6-2.6)
== END 2021-07-29 09:58 | disposition home or self-care (01) ==
LOC: HO.10HDL 09:57
PROVIDERS: Visit Provider Internal Medicine
DX: K90.0 Celiac disease (principal); E61.2 Magnesium deficiency
CPT/HCPCS: 36415; 83735

== ENCOUNTER 2025-03-20 11:23 | Outpatient (REF) | payer OTHER, SELFPAY ==
[2025-03-20 12:15] LABS: MANUAL DIFF FLAG NO
[2025-03-20 12:41] LABS: Hematocrit 39.4 % (37.0-47.0); Hemoglobin 12.8 g/dl (12.0-16.0); Imm Gran Abs Auto 0.02 X10*3/uL (0.00-0.03); Imm Gran Pct Auto 0.3 % (0.0-0.4); Lymphocytes Absolute Auto 2.0 X10*3/uL (1.2-4.9); Mean Corpuscular HGB Conc 32.5 g/dl (31.0-35.0); Mean Corpuscular Hemoglobin 29.4 pg (27.0-33.0); Mean Corpuscular Volume 90.4 fL (80.0-98.0); NRBC Abs Auto 0.000 X10*3/uL (0.0-0.012); NRBC Pct Auto 0.0 /100WBC (0.0-0.2); Platelet Count 278 X10*3/uL (160-400); Red Blood Count 4.36 X10*6/uL (4.20-5.50); White Blood Count 7.7 X10*3/uL (4.8-10.8)
[2025-03-20 13:36] LABS: Thyroid Stimulating Hormone 1.30 uIU/mL (0.32-4.0)
[2025-03-20 13:47] LABS: Anion Gap 10 (12-20)
[2025-03-20 13:51] LABS: Alanine Aminotransferase 23 U/L (0-31); Albumin Level 4.6 g/dL (3.5-5.0); Alkaline Phosphatase 105 U/L (39-117); Aspartate Amino Transferase 32 U/L (5-31); Blood Urea Nitrogen 12 mg/dL (9-16); Calcium 9.8 mg/dL (8.4-10.2); Carbon Dioxide 30 mmol/L (22-29); Chloride 107 mmol/L (96-108); Estimated Glomerular Filt Rate > 60; Magnesium 2.2 mg/dL (1.6-2.6); Potassium 4.3 mmol/L (3.3-5.1); Sodium 143 mmol/L (135-145); Total Protein 7.2 g/dL (6.5-8.0)
--- OUTSIDE RECORDS SUMMARY | 2025-03-20 14:20 | XMS_ITS | Clinical Summary ---
Author Organization [facility] Address [address] [place] [id number] Phone Care Team Providers Care Spoon Maker Name Role Phone Fartun Rome Jame GUARD DRIVER Primary Care Provider [phone] Allergies Active Allergy Reactions Criticality Noted Date Comments Amoxicillin-Pot Clavulanate 09/06/19 Clindamycin Hcl Hives 09/05/2021 Doxycycline Hyclate Hives 09/05/2021 Metronidazole Swelling 09/05/2021 Penicillin 09/05/2021 Sulfamethoxazole 09/05/2021 Sulfamethoxazole-Trimethoprim 2021 Medications fluticasone propion-salmeter oL (ADVAIR DISKUS) 100-50 mcg/dose DISKUS Inhale into the lungs. 02/03/2021 Active albuterol (PROAIR HFA) 90 mcg/actuation inhaler Inhale into the lungs. 03/04/2021 Active omeprazole (PRILOSEC) 20 MG capsule Take 20 mg by mouth 2 (two) times a day. 08/01/2021 Active Active Problems Problem Noted Date Diagnosed Date Corns 09/12/2021 Pain in left foot 09/12/2021 Pain in right foot 09/12/2021 Social History Tobacco Use Types Packs/Day Years Used Date Smoking Tobacco: Every Day Smokeless Tobacco: Never Alcohol Use Standard Drinks/Week Comments Yes 0 (1 standard drink = 0.6 oz pur e alcohol) Education Answer Date Recorded Are you interested in more education? Not on mariana e 10/24/2022 Are you concerned about learning? Not on file 10/24/2022 No 10/24/2022 No 10/24/2022 Digital Access Answer Date Recorded No 11/20/2022 No 11/20/2022 No 11/20/2022 Reliable internet access at home? Not on file 11/20/2022 Device with a working camera? Not on file Comments Unknown Sex and Gender Information Value Date Recorded Sex Assigned at Female 09/04/2021 1:29 PM EST Legal Sex Female 10:38 AM EST Gender Identity Female 09/04/2021 1:29 PM EST Sexual Orientation Choose not to disclose 2021 1:29 PM EST Last Filed Vital Signs Vital Sign Reading Time Taken Comments Blood Pressure - - Pulse - - Temperature - - Respiratory Rate - - Oxygen Saturation - - Inhaled Oxygen Concentration - - Weight 81.6 kg (180 lb) 09/05/2021 8:38 AM EST Height 170.2 cm (5' 7 ) 09/05/2021 8:38 AM EST Body Mass Index 28.19 09/05/2021 8:38 AM EST Plan of Treatment Health Maintenance Due Date Last Done Comments LIPID PANEL 1961 DEPRESSION SCREENING 1973 SMOKING Hx and SMOKELESS TOBACCO SCREENING 1974 HEPATITIS C SCREENING 1979 HIV ONE-TIME SCREENING (18-65 YEARS) 1979 PAP SMEAR 1982 MAMMOGRAM 2001 COLOGUARD 2006 COLONOSCOPY 2006 COLORECTAL CANCER SCREENING 2006 FIT TEST 2006 FOBT 2006 SIGMOIDOSCOPY 2006 VIRTUAL COLONOSCOPY 2006 ZOSTER VACCINES (1 of 2) 2011 Adult Td,Tdap Booster 06/28/2013 06/28/2003 PNEUMOCOCCAL VACCINES (50+ years) (2 of 2 - PCV) 01/12/2018 01/12/2017 INFLUENZA VACCINE (#1) 2025 , 04/25/2020, 07/27/2017, Additional history exists COVID-19 VACCINE (4 - season) 2025 06/11/2021, 09/16/2020, 08/19/2020 RSV VACCINE (1 - 1-dose 75+ series) 01/27/2036 HEPATITIS A VACCINES Aged Out No long er eligible based on patient's age to complete this topic HIB VACCINES Aged Out No longer eligi ble based on patient's age to complete this topic MENINGOCOCCAL VACCINES (ACWY) Aged Out No longer eligible based on patient's age to complete this topic MENINGOCOCCAL VACCINES (B) Aged Out N o longer eligible based on patient's age to complete this topic Medical Devices Not on file [place] [address] [place] [address] [facility] [place] [address] [place] [address] [facility] Care Teams Spoon Maker Relationship Specialty Start Date End Date Fartun Rome NP [address] [place] [id number] PCP - General 09/05/21 Additional Source Comments The information contained in this document represents components of the legal health record. It is not the complete legal health record.[facility]
--- OUTSIDE RECORDS SUMMARY | 2025-03-20 14:21 | XMS_ITS | Patient Health Record ---
[facility] Organization [facility] Address [address] [place] [address] Care Team Providers Care Main Line Station Engineer Name Role Phone Jeb MADSEN, [facility] Primary Care Provider Unavailab zeina Zofia Bai Unavailable [phone] Allergies Allergen (clinical drug ingredient) Drug/Non Drug Allergy documented on EMR Reaction Allergy Type Onset Date Status sulfa hives Drug Allergy Active Penicillin hives Drug Allergy Active Reason For Referral No Information Medications Medication SIG (Take, Route, Frequency, Duration) Notes Start Date End Date Status Advair HFA 45-21 MCG/ACT 2 puffs Inhalat ion Twice a day Active ProAir HFA 108 (90 Base) MCG/ACT 2 puffs as needed Inhalation every 4 hrs Active Omeprazole 20 MG 1 capsule Orally Onc e a day Active Azithromycin 250 MG [address] day, then 1 tablet daily for 4 days Orally Once a day; Duration: 5 day(s) 02/19/2014 Active Percocet 5-325 MG 1 tablet as needed O rally every 4- 6 hrs; Duration: as needed 03/05/2014 Active Problems Problem Type SNOMED Code ICD Code Onset Dates Problem Status W/U Status Risk Notes Problem Arthralgia (71044253) Arthralgia (719.40) Active confirmed Problem Disorder of joint of ankle and/or foot (224035204) Arthritis - Degenerative (719.97) Active confirmed Problem Hammer toe (252012700) Hammer toe (735.4) Active confirmed Problem Metatarsalgia (27174623) Metatarsalgia (726.70) Active confirmed Problem Tailors bunion (1384263) Tailors Bunion (727.1) Active confirmed Problem Verruca plantaris (60522696) Verruca Plantaris (078.19) Active confirmed Plan Of Treatment Pending Test Test Name Order Date 78313-Pego Destruction, -12/11/2013 22597-Iqkd Destruction, 07-1102/19/2014 68870 I&D ABSCESS- SIMPLE,SINGLE 014 Insurance Providers Payer Name Payer Address Payer Phone Subscriber Number Group Number Insured Name Patient Relationship to Insured Coverage Start Date Coverage End Date [employer] [address] [address] [place] [phone] [id number] Martin Velasquez Spouse - patient is the spouse of the insured Medical (General) History Medical History History ICD Code asthma Back,Hip,and Knee pain Raynauds syndrome Reflux Surgical History Surgery Date(Month/Year) tonsillectomy cholecystectomy
--- OUTSIDE RECORDS SUMMARY | 2025-03-20 14:21 | XMS_ITS | Patient Health Record ---
Author Organization [facility] Address [address] [place] [address] Care Team Providers Care Digital Sales Assistant Name Role Phone ImeldaFartun harry Primary Care Provider Gene Shaw [phone] Allergies Allergen (clinical drug ingredient) Drug/Non Drug Allergy documented on EMR Reaction Allergy Type Onset Date Status metronidazole Flagyl Unknown Drug Allergy Act james bacitracin Antibiotic Unknown Drug Allergy Activ e Results Component Value Reference Range Notes Magnesium (Not yet reviewed by provider) Interpretation: Performing Lab:[facility], [address] [place] [phone] Notes/Report: Magnesium 2.2 1.6-2.6 mg/dL T4 Thyroxine (Not yet revie wed by provider) Interpretation: Performing Lab:[facility], [address] [place] [phone] Notes/Report: T4 Thyroxine 8.7 4.5-12.0 ug/dL Complete Blood Count Auto Di ff (Not yet reviewed by provider) Interpretation: Performing Lab:[facility], [address] [place] [phone] Notes/Report: White Blood Count 7.7 4.8-10.8 X10*3/uL Red Blood Count 4.36 4.20-5.50 X10*6/uL Hemoglobin 12.8 12.0-16.0 g/dl Hematocrit 39.4 37.0-47.0 % Mean Corpuscular Volume 90.4 80.0-98.0 fL Mean Corpuscular Hemoglobin 29.4 27.0-33.0 pg Mean Corpuscular HGB Conc 32.5 31.0-35.0 g/dl Red Cell Distribution Width 14.5 11.0-16.0 % Platelet Count 278 160-400 X10*3/uL Mean Platelet Volume 10.6 9.4-12.3 fL Neutrophils Percent Auto 60.3 45-73 % Imm Gran Pct Auto 0.3 0.0-0.4 % Lymphocytes Percent Auto 25.2 20-40 % Monocytes Percent Auto 4.9 2-11 % Eosinophils Percent Auto 8.4 0-4 % Basophils Percent Auto 0.9 0-2 % NRBC Pct Auto 0.0 0.0-0.2 /100WBC Neutrophils Absolute Auto 4.7 2.0-8.3 x10*3/u L Imm Gran Abs Auto 0.02 0.00-0.03 X10*3/uL Lymphocytes Absolute Auto 2.0 1.2-4.9 X10*3/u L Monocytes Absolute Auto 0.4 0.1-1.2 X10*3/uL Eosinophils Absolute Auto 0.7 0.0-0.4 X10*3/u L Basophils Absolute Auto 0.1 0.0-0.2 X10*3/uL NRBC Abs Auto 0.000 0.0-0.012 X10*3/uL Erythrocyte Sedimentation Ra te (Not yet reviewed by provider) Interpretation: Performing Lab:[address] [address] Notes/Report: Erythrocyte Sedimentation Rate 17 0-20 MM/HR Patients with polycythemia and many hemoglobin abnormalities may have depressed sed rates whereas patients with anemia may have elevated sed rates. Liver Panel (Not yet reviewe d by provider) Interpretation: Performing Lab:[address] [address] Notes/Report: Bilirubin Total 0.5 0.0-1.0 mg/dL Bilirubin Direct 0.2 0.0-0.5 mg/dL Aspartate Amino Transferase 32 5-31 U/L Alanine Aminotransferase 23 0-31 U/L Total Protein 7.2 6.5-8.0 g/dL Albumin Level 4.6 3.5-5.0 g/dL Alkaline Phosphatase 105 39-117 U/L Basic Metabolic Panel (Not y et reviewed by provider) Interpretation: Performing Lab:[address] [address] Notes/Report: Sodium 143 135-145 mmol/L Potassium 4.3 3.3-5.1 mmol/L Chloride 107 96-108 mmol/L Carbon Dioxide 30 22-29 mmol/L Anion Gap 10 12-20 Blood Urea Nitrogen 12 9-16 mg/dL Creatinine 0.86 0.5-1.4 mg/dL Estimated Glomerular Filt Rate > 60 Chronic Kidney Disease: Estimated GFR < 60 mL/min/1.73m2 Severe Kidney Disease: Estimated GFR < 15 mL/min/1.73m2 Glucose Random 100 60-115 mg/dL Calcium 9.8 8.4-10.2 mg/dL C Reactive Protein (Not yet reviewed by provider) Interpretation: Performing Lab:[address] [phone] Notes/Report: C Reactive Protein 0.30 < or = 0.50 mg/dL Thyroid Stimulating Hormone (Not yet reviewed by provider) Interpretation: Performing Lab:[address] [address] Notes/Report: Thyroid Stimulating Hormone 1.30 0.32-4.0 uIU/ mL TSH 3rd Generation ([facility]) Reason For Referral No Information Medications Medication SIG (Take, Route, Frequency, Duration) Notes Start Date End Date Status Atorvastatin Calcium 40 MG Oral for 30 [...] FOUR TIMES DAILY Inhalation for 25 Active Advair Diskus 100-50 MCG/DOSE INHALE 1 PUFF [...] EVERY EVENING Ophthalmic for 90 Days Active Immunizations Vaccine Route Administration Date Status Comme nts Influenza Unknown 02/26/2021 Administered Influenza Unknown 04/18/2024 Administered Influenza Unknown 04/22/2022 Refused Social History Tobacco Use: Social History Observation Description Date Details (start date - stop date) Current Smoker NA - NA Tobacco Control (Standard) Question Answer Notes Tobacco [...] she denies an y significant alcohol use Former smoker; she denies an y significant alcohol use Former smoker; she denies an y significant alcohol use Problems Problem Type SNOMED Code ICD Code Onset Dates Problem Status W/U Status Risk Notes Problem 535103413 Encounter for screening for malignant neoplasm of colon (Z12.11) Active confirmed Problem 076710247 Magnesium deficiency (E61.2) Active confirmed Problem 727727010 Hypomagnesemia (E83.42) Active confirmed Problem Diverticular disease of colon (625110371) Diverticulosis of large intestine without perforation or abscess without bleeding (K57.30) Active confirmed Problem 478335655 Celiac disease (K90.0) Active confirmed Problem 286063776 Nausea (R11.0) Active confirmed Problem 64351221 Weakness (R53.1) Active confirmed Problem 638413227 Gastroesophageal reflux disease without esophagitis (K21.9) Active confirmed Problem Esophageal ring (83766553) Esophageal ring (K22.2) Active confirmed Problem Gastritis (1437891) Gastritis (K29.70) Active confirmed Problem 095551592 Hx of adenomatou s colonic polyps (Z86.010) Active confirmed Problem Esophageal reflux finding (182125664) Gastroesophageal reflux (K21.9) Active confirmed Problem 55575939 Diarrhea, unspecified type (R19.7) Active confirmed Problem 78340544 Inflammation present on biopsy of duodenum (K29.80) Active confirmed Vital Signs Temperature 96.6 degrees Fahrenheit 03/20/2025 Blood pressure diastolic 01 mm Hg 03/20/2025 Height 67 in 03/20/2025 Blood pressure systolic 001 mm Hg 03/20/2025 Weight 193 lbs 03/20/2025 BMI 30.22 kg/m2 03/20/2025 Procedures Procedure Date Ordered Date Performed Result Body Sit e UPPER GI ENDOSCOPY 03/20/2025 N/A COLONOSCOPY 03/20/2025 N/A Encounters Encounter Location Date Provider Diagnosis [facility] [address] [place] [address] 03/20/2025 Gene Crowe Diarrhea, unspecifie d type [...] advised of her progress. Plan Of Treatment Pending Test Test Name Order Date UPPER GI ENDOSCOPY 03/20/2025 COLONOSCOPY 03/20/2025 CHEM 7 PROFILE 03/20/2025 CHEM 7 PROFILE 05/26/2021 LIVER PROFILE 03/20/2025 LIVER PROFILE 05/26/2021 MAGNESIUM 05/26/2021 AMYLASE 05/26/2021 LIPASE 05/26/2021 TSH (THYROID STIMULATING HORMONE) 2024 CRP 03/20/2025 CRP 05/26/2021 CBC w DIFF 05/26/2021 CBC w DIFF 03/20/2025 SED RATE (ESR) 05/26/2021 SED RATE (ESR) 03/20/2025 CELIAC PANEL #10 05/17/2021 STOOL WBC 05/26/2021 C DIFFICILE RFLX PCR 05/26/2021 Complete Blood Count Auto Diff Erythrocyte Sedimentation Rate Liver Panel 03/20/2025 Basic Metabolic Panel 03/20/2025 Magnesium 03/20/2025 C Reactive Protein 03/20/2025 T4 Thyroxine 03/20/2025 Thyroid Stimulating Hormone 03/20/2025 TSH reflex Free T4 05/26/2021 Celiac Panel 10 03/20/2025 CDiff with Reflex to PCR 03/20/2025 Giardia Ag Stool EIA 05/26/2021 Giardia Ag Stool EIA 03/20/2025 Calprotectin, Fecal 03/20/2025 GI PANEL 03/20/2025 Next Appt Details Provider Name:Gene Crowe , 05/04/2025 02:30:00 PM, [address] [place] [address] , [place], [phone], Insurance Providers Payer Name Payer Address Payer Phone Subscriber Number Group Number Insured Name Patient Relationship to Insured Coverage Start Date Coverage End Date [facility] [address] [place] [phone] [id number] KELLY CHAPA Self - patient is the insured [facility] [address] [place] [phone] [id number] KELLY CHAPA Self - patient is the insured Medical (General) History Medical History History ICD Code Asthma Denies SD,DM,CVA,renal disease Gastroesophageal reflux- upp er endoscopy in April 2021 revealed a small to moderate-sized hiatal hernia, but no evidence of any esophagitis nor Alicia's esophagus. Gastric biopsies were negative for H. pylori. She did have a very mild esophageal ring that was dilated with a 20 mm balloon Celiac disease with duodenal biopsies in April of 2021 showing mild villous blunting and increased intraepithelial lymphocytes; celiac disease laboratories were negative at that time; she did improve significantly on a gluten-free diet thereafter Irritable bowel syndrome- co lonoscopy in April of 2021 was negative for inflammatory bowel disease and biopsies were negative for microscopic colitis Tubular adenoma removed during her 2020 colonoscopy C. difficile infection in No 2020 requiring hospitalization and treated with po vancomycin and IV Flagyl. This was probably related to some preceding use of antibiotics, Hypomagnesemia in relation t o the severe C. difficile infection and diarrhea. This did resolve although she did require some IV magnesium at an ER visit after the above hospitalization for C. difficile. This stabilized with the use of oral magnesium supplements with a normal magnesium level on 07/29/2021 IBS 03/20/25- She was seen by the eye doctor just before the office visit with me and was started on some prednisone eyedrops for inflammation in the right eye that she was told might be some type of autoimmune issue Surgical History Surgery Date(Month/Year) Lumpectomy/ benign Tonsillectomy Cholecystectomy
[2025-03-21 23:03] LABS: Immunoglobulin A 134 mg/dL (70-320)
== END 2025-03-20 11:24 | disposition home or self-care (01) ==
LOC: HO.LAB 11:23
PROVIDERS: PCP Student in an Organized Health Care Education/Training Program; Visit Provider Internal Medicine
DX: K90.0 Celiac disease (principal); R19.7 Diarrhea, unspecified
CPT/HCPCS: 36415; 80048; 80076; 82784; 83735; 84436; 84443; 85025; 85652; 86140; 86364

== ENCOUNTER 2025-03-21 12:25 | Outpatient (REF) | payer OTHER, SELFPAY ==
--- OUTSIDE RECORDS SUMMARY | 2025-03-20 06:30 | XMS_ITS ---
Author Organization [facility] Address [address] [place] [address] Care Team Providers Care Sampling Expert Name Role Phone Fartun Segura Primary Care Provider Gene Shaw [phone] Allergies Allergen (clinical drug ingredient) Drug/Non Drug Allergy documented on EMR Reaction Allergy Type Onset Date Status metronidazole Flagyl Unknown Drug Allergy Act james bacitracin Antibiotic Unknown Drug Allergy Activ e Results Component Value Reference Range Notes Magnesium (Not yet reviewed by provider) Interpretation: Performing Lab:[address] [phone] Notes/Report: Magnesium 2.2 1.6-2.6 mg/dL T4 Thyroxine (Not yet review ed by provider) Interpretation: Performing Lab:[facility], [address] [place] [phone] Notes/Report: T4 Thyroxine 8.7 4.5-12.0 ug/dL GI PANEL (Not yet reviewed b y provider) Interpretation: Performing Lab:[address] [address] Notes/Report: Campylobacter Not Detected Not Detect. Plesiomonas [...] is performed by Multiplexed PCR, utilizing the [email or web address] Array. REASON FOR VISIT Patient presents today [...] N/A Encounters Encounter Location Date Provider Diagnosis [facility] [address] [place] [address] 03/20/2025 Gene Crowe Diarrhea, unspecifie d type [...] Provider Name:Gene Crowe , 05/04/2025 02:30:00 PM, [address] [place] [address], [id number], Progress Notes * KELLY CHAPA PDOB:[birth year] (65 yo F)Acc No.[id number]:03/20/2025 Progress Notes Patient: KELLY GUERRERO Provider: Lexie Crowe MD :1960 A ge:65 Y S ex:Female Date:03/20/2025 Address:[address] [place], [place] [id number] Pcp:Fartun Segura Subjective: * Chief Complaints: * 1 . [...] hypomagnesemia requiring ER visits. * Medical History: Ya field, Denies PR,DM,CVA,renal disease, Gastroesophageal reflux- upper endoscopy in April [...] M iscellaneous: M arital status: . 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 D rug/Alcohol: A NORMA-C (Standard) D [...] any significant alcohol use. * Medications: T gilg Aspirin 81 81 MG Tablet Delayed Release [...] to PCR ?LAB: Giardia Ag Stool EIA ?LAB: Calprotectin, Fecal ?LAB: GI PANEL (Collection [...] to PCR ?LAB: Giardia Ag Stool EIA ?LAB: Calprotectin, Fecal ?LAB: GI PANEL (Collection [...] * Procedure Codes: 4 5378 DIAGNOSTIC COLONOSCOPY, 36187 UPPR GI ENDOSCOPY, DIAGNOSIS * Preventive Medicine: Counseling: C are goal follow-up plan: A bran Normal BMI Follow-up D ietary management education, guidance, and counseling, B PR management provided Y es. S moking Patient [...] Crowe MD Date: 0 03/20/2025 Generated for Shasha fernando/Shila/Tomásransmitting on: 0 03/21/2025 03:01 PM EDT History and Physical Notes * HPI [...]
[2025-03-21 13:26] LABS: CDiff Gene PCR NEGATIVE (Negative)
[2025-03-21 14:05] LABS: E. coli EAEC Not Detected (Not Detect.); E. coli EPEC Not Detected (Not Detect.); E. coli ETEC Not Detected (Not Detect.); E. coli STEC Not Detected (Not Detect.); Shigella sp./EIEC Not Detected (Not Detect.)
--- OUTSIDE RECORDS SUMMARY | 2025-03-21 15:02 | XMS_ITS | Clinical Summary ---
Author Organization [facility] Address [address] [place] [address] Phone Care Team Providers Care Material Control Analyst Name Role Phone Fartun Romejanet POWER SHOVEL ENGINEER Primary Care Provider [phone]- [phone] Allergies Active Allergy Reactions Criticality Noted Date [...] topic Medical Devices Not on file [place] [address] PCC [facility] [place] [address] [place] [address] PCC Care Teams Material Control Analyst Relationship Specialty Start Date End Date Fartun Rome NP [address] [place] [address] PCP - General 09/05/21 Additional Source Comments The information contained in this document represents components of the legal health record. It is not the complete legal health record.[facility]
--- OUTSIDE RECORDS SUMMARY | 2025-03-21 15:02 | XMS_ITS | Patient Health Record ---
Author Organization [facility] Address [address] [place] [address] Care Team Providers Care Propeller Tester Name Role Phone Jeb MADSEN, [facility] Primary Care Provider Unavailab zeina Zofia Bai Unavailable [phone] Allergies Allergen (clinical drug ingredient) Drug/Non Drug [...] Status W/U Status Risk Notes Problem Arthralgia (73164054) Arthralgia (719.40) Active confirmed Problem Disorder of joint of ankle and/or foot (750833488) Arthritis - Degenerative (719.97) Active confirmed Problem Hammer toe (615054457) Hammer toe (735.4) Active confirmed Problem Metatarsalgia (16007910) Metatarsalgia (726.70) Active confirmed Problem Tailors bunion (0771551) Tailors Bunion (727.1) Active confirmed Problem Verruca plantaris (21096723) Verruca Plantaris (078.19) Active confirmed Plan Of Treatment Pending Test Test Name Order Date 40046-Ledw Destruction, -12/11/2013 01380-Swak Destruction, 07-1102/19/2014 23054 I&D ABSCESS- SIMPLE,SINGLE 014 Insurance Providers Payer Name Payer Address Payer Phone Subscriber Number Group Number Insured Name Patient Relationship to Insured Coverage Start Date Coverage End Date Aetna Choice POS [address] [address] [place] [address] [id number] Martin Velasquez Spouse - patient is the spouse of the insured Medical (General) History Medical History History ICD Code asthma Back,Hip,and Knee pain Raynauds syndrome Reflux Surgical History Surgery Date(Month/Year) tonsillectomy cholecystectomy
--- OUTSIDE RECORDS SUMMARY | 2025-03-21 15:02 | XMS_ITS | Patient Health Record ---
Author Organization [facility] Address [address] [place] [address] Care Team Providers Care Plant Science Professor Name Role Phone ImeldaFartun harry Primary Care Provider Gene Shaw [phone] Allergies Allergen (clinical drug ingredient) Drug/Non Drug Allergy documented on EMR Reaction Allergy Type Onset Date Status metronidazole Flagyl Unknown Drug Allergy Act james bacitracin Antibiotic Unknown Drug Allergy Activ e Results Component Value Reference Range Notes Magnesium (Not yet reviewed by provider) Interpretation: Performing Lab:[facility], [address] [place] [phone] Notes/Report: Magnesium 2.2 1.6-2.6 mg/dL T4 Thyroxine (Not yet revie wed by provider) Interpretation: Performing Lab:[facility], [address] [place] [phone] Notes/Report: T4 Thyroxine 8.7 4.5-12.0 ug/dL GI PANEL (Not yet reviewed b y provider) Interpretation: Performing Lab:[address] [phone] Notes/Report: Campylobacter Not Detected Not Detect. Plesiomonas [...] is performed by Multiplexed PCR, utilizing the [employer] Array. Complete Blood Count Auto Di ff (Not yet reviewed by provider) Interpretation: Performing Lab:[facility], [address] [place] [phone] Notes/Report: White Blood Count 7.7 4.8-10.8 X10*3/uL [...] (Not yet reviewed by provider) Interpretation: Performing Lab:[facility], [address] [place] [phone] Notes/Report: Erythrocyte Sedimentation Rate 17 0-20 MM/HR Patients with polycythemia and many hemoglobin abnormalities may have depressed sed rates whereas patients with anemia may have elevated sed rates. Liver Panel (Not yet reviewe d by provider) Interpretation: Performing Lab:[facility], [address] [place] [phone] Notes/Report: Bilirubin Total 0.5 0.0-1.0 mg/dL Bilirubin Direct 0.2 0.0-0.5 mg/dL Aspartate Amino Transferase 32 5-31 U/L Alanine Aminotransferase 23 0-31 U/L Total Protein 7.2 6.5-8.0 g/dL Albumin Level 4.6 3.5-5.0 g/dL Alkaline Phosphatase 105 39-117 U/L Basic Metabolic Panel (Not y et reviewed by provider) Interpretation: Performing Lab:[facility], [address] [place] [phone] Notes/Report: Sodium 143 135-145 mmol/L Potassium 4.3 [...] (Not yet reviewed by provider) Interpretation: Performing Lab:[facility], [address] [place] [phone] Notes/Report: C Reactive Protein 0.30 < or = 0.50 mg/dL Thyroid Stimulating Hormone (Not yet reviewed by provider) Interpretation: Performing Lab:[address] [phone] Notes/Report: Thyroid Stimulating Hormone 1.30 0.32-4.0 uIU/mL TSH 3rd Generation ([facility]) CDiff Gene PCR (Not yet revi ewed by provider) Interpretation: Performing Lab:[facility], [address] [place] [phone] Notes/Report: CDiff Gene PCR NEGATIVE Negative If C. difficile strongly suspected despite one negative test, a second test may be sent vs. empiric treatment for C. difficile infection. Reason For Referral No Information Medications Medication [...] Problem Status W/U Status Risk Notes Problem 607427838 Encounter for screening for malignant neoplasm of colon (Z12.11) Active confirmed Problem 506832513 Magnesium deficiency (E61.2) Active confirmed Problem 162143512 Hypomagnesemia (E83.42) Active confirmed Problem Diverticular disease of colon (481074778) Diverticulosis of large intestine without perforation or abscess without bleeding (K57.30) Active confirmed Problem 662482832 Celiac disease (K90.0) Active confirmed Problem 892107499 Nausea (R11.0) Active confirmed Problem 67995209 Weakness (R53.1) Active confirmed Problem 964388225 Gastroesophageal reflux disease without esophagitis (K21.9) Active confirmed Problem Esophageal ring (43102521) Esophageal ring (K22.2) Active confirmed Problem Gastritis (5976442) Gastritis (K29.70) Active confirmed Problem 200336573 Hx of adenomatou s colonic polyps (Z86.010) Active confirmed Problem Esophageal reflux finding (892956473) Gastroesophageal reflux (K21.9) Active confirmed Problem 17448345 Diarrhea, unspecified type (R19.7) Active confirmed Problem 15519660 Inflammation present on biopsy of duodenum (K29.80) [...] N/A Encounters Encounter Location Date Provider Diagnosis [facility] [address] [place] [address] 03/20/2025 Gene Crowe Diarrhea, unspecifie d type [...] Ag Stool EIA 03/20/2025 Calprotectin, Fecal 03/20/2025 CDiff Gene PCR 03/21/2025 GI PANEL 03/20/2025 Next Appt Details Provider Name:Gene Crowe , 05/04/2025 02:30:00 PM, [address] [place] [address] , [place], [place], [id number], Insurance Providers Payer Name Payer Address Payer Phone Subscriber Number Group Number Insured Name Patient Relationship to Insured Coverage Start Date Coverage End Date [facility] [address] [place] [address] [id number] KELLY CHAPA Self - patient is the insured MEDICAID OF [facility] [address] [place] [address] [id number] KELLY CHAPA Self - patient is the insured Medical (General) History Medical History History ICD Code Asthma Denies CT,DM,CVA,renal disease Gastroesophageal reflux- upp er endoscopy in [...]
[2025-03-28 20:08] LABS: Calprotectin, Fecal 16 mcg/g
== END 2025-03-21 12:26 | disposition home or self-care (01) ==
LOC: HO.LNP 12:25
PROVIDERS: Visit Provider Internal Medicine
DX: K90.0 Celiac disease (principal); R19.7 Diarrhea, unspecified
CPT/HCPCS: 83993; 87329; 87493; 87507

== ENCOUNTER 2025-05-04 12:20 | Day surgery (SDC) | payer OTHER, SELFPAY ==
--- OUTSIDE RECORDS SUMMARY | 2025-03-20 06:30 | XMS_ITS ---
Author Organization [facility] Address [address] [place] [address] Care Team Providers Care Senior Product Development Engineer Name Role Phone Fartun Segura Primary Care Provider Gene Shaw [phone] Allergies Allergen (clinical drug ingredient) Drug/Non Drug Allergy documented on EMR Reaction Allergy Type Onset Date Status metronidazole Flagyl Unknown Drug Allergy Act james bacitracin Antibiotic Unknown Drug Allergy Activ e Results Component Value Reference Range Notes Magnesium (Not yet reviewed by provider) Interpretation: Performing Lab:[facility], [address] [place] [phone] Notes/Report: Magnesium 2.2 1.6-2.6 mg/dL T4 Thyroxine (Not yet review ed by provider) Interpretation: Performing Lab:[facility], [address] [place] [phone] Notes/Report: T4 Thyroxine 8.7 4.5-12.0 ug/dL Giardia Ag Stool EIA (Not ye t reviewed by provider) Interpretation: Performing Lab:[facility], [address] [place] [phone] Notes/Report: Giardia Ag Stool EIA SEE NOTE GIARDIA AG, EIA, STOOL Micro Number: [id number] Test Status: Final Specimen Source: Stool Specimen Quality: Adequate Giardia Result 1: Not Detected Reference Range: Not Detected NOTE: Due to intermittent shedding, one negative sample does not necessarily rule out the presence of a parasitic infection. THIS TEST WAS PERFORMED AT: [employer] [address] [place] [phone] PRICE SAUNDERS MD GI PANEL (Not yet reviewed b y provider) Interpretation: Performing Lab:[facility], [address] [place] [address], [place] [phone] Notes/Report: Campylobacter Not Detected Not Detect. Plesiomonas shigelloides Not Detected Not Detect. Salmonella Not Detected Not Detect. Vibrio Not Detected Not Detect. Vibrio Cholerae Not Detected Not Detect. Yersinia enterocolitica Not Detected Not Detect. E. coli EAEC Not Detected Not Detect. E. coli EPEC Not Detected Not Detect. E. coli ETEC Not Detected Not Detect. E. coli STEC Not Detected Not Detect. E. coli O157 Not applicable Not Detect. E. coli containing the O157 antigen are a subset of Shiga-like toxin-producing E. coli (STEC). Shigella sp./EIEC Not Detected Not Detect. Cryptosporidium Not Detected Not Detect. Cyclospora cayetanensis Not Detected Not Detect. Entamoeba histolytica Not Detected Not Detect. Giardia lamblia Not Detected Not Detect. Adenovirus F 40/41 Not Detected Not Detect. Astrovirus Not Detected Not Detect. Norovirus GI/GII Not Detected Not Detect. Rotavirus A Not Detected Not Detect. Sapovirus Not Detected Not Detect. All results must be correlated with clinical findings. Negative results do not exclude the possibility of gastrointestinal infection and should not be used as the sole basis for diagnosis, treatment, or other management decisions. Virus, bacteria, and parasite nucleic acid may persist in vivo independently of organism viability. Additionally, some organisms may be carried asymptomatically. Detection of organism targets does not imply that the corresponding organisms are infectious or are the causative agents for clinical symptoms. There is a risk of false negative values due to the presence of sequence variants in the gene targets of the assay, amplification inhibitors in specimens, or inadequate numbers of organisms for amplification. The identification of several diarrheagenic E. coli pathotypes has historically relied upon phenotypic characteristics. This panel targets genetic determinants characteristic of most pathogenic strains, but may not detect all strains having phenotypic characteristics of a pathotype. The performance of this test has not been established for monitoring treatment of infection with any of the panel organisms. This assay is performed by Multiplexed PCR, utilizing the [employer] Array. REASON FOR VISIT Patient presents today for Bloating and fall Medications Medication SIG (Take, Route, Frequency, Duration) Notes Start Date End Date Status Advair Diskus 100-50 MCG/DOSE INHALE 1 PUFF BY MOUTH TWICE DAILY. RINSE MOUTH AND THROAT AFTER USE Inhalation for 30 Active Omeprazole 20 MG 1 Orally BID twice a day Active Aspirin 81 81 MG 1 tablet Orally Once a day Active prednisoLONE Acetate 1 % Ophthalmic for 16 Days Active Latanoprost 0.005 % INSTILL 1 DROP IN BOTH EYES EVERY EVENING Ophthalmic for 90 Days Active Atorvastatin Calcium 40 MG Oral for 30 Days Active Magnesium Gluconate 550 MG 1 tablet Orally BID for 30 day(s) 06/03/2021 Unknown Zofran 4 MG 1 tablet Orally Q 4-6 hours prn nausea for 30 day(s) 06/03/2021 Unknown Magnesium Lactate 84 MG (7MEQ) 1 tablet Orally every 12 hrs for 30 day(s) 2 pills, 3 times a day 06/03/2021 Active Albuterol Sulfate HFA 108 (90 Base) MCG/ACT INHALE 2 PUFFS BY MOUTH FOUR TIMES DAILY Inhalation for 25 Active Social History Tobacco Use: Social History Observation Description Date Details (start date - stop date) Current Smoker NA - NA Alcohol Screen Question Answer Notes Did you have a drink contain ing alcohol in the past year? Yes How often did you have a dri nk containing alcohol in the past year? Monthly or less (1 point) How many drinks did you have on a typical day when you were drinking in the past year? 1 or 2 drinks (0 point) How often did you have 6 or more drinks on one occasion in the past year? Never (0 point) Points 1 Interpretation Negative Tobacco Control (Standard) Question Answer Notes Tobacco use: Current smoker AUDIT-C (Standard) Question Answer Notes Did you have a drink contain ing alcohol in the past year? Yes How often did you have a dri nk containing alcohol in the past year? 2 to 4 times a month (2 points) How many drinks did you have on a typical day when you were drinking in the past year? 3 or 4 drinks (1 point) How often did you have six o r more drinks on one occasion in the past year? Never (0 point) Points 3 Interpretation Positive Section Notes: Former smoker; she denies an y significant alcohol use Vital Signs Temperature 96.6 degrees Fahrenheit 03/20/20 25 Blood pressure systolic 001 mm Hg 03/20/20 25 Blood pressure diastolic 01 mm Hg 025 Height 67 in 03/20/2025 Weight 193 lbs 03/20/2025 BMI 30.22 kg/m2 03/20/2025 Procedures Procedure Date Ordered Date Performed Result Body Sit e UPPER GI ENDOSCOPY 03/20/2025 N/A COLONOSCOPY 03/20/2025 N/A Encounters Encounter Location Date Provider Diagnosis [facility] [address] [place] [address] 03/20/2025 Gene Crowe Diarrhea, unspecifie d type R19.7 ; Celiac disease K90.0 ; Gastroesophageal reflux disease without esophagitis K21.9 and Hx of adenomatous colonic polyps Z86.010 Assessments Encounter Date Diagnosis (ICD Code) Assessment Notes Treatment Notes Treatment Clinical Notes Section Notes 03/20/2025 Diarrhea, unspecified type (ICD-10 - R19.7) Use Imodium every 6 hours as needed for diarrhea Overall, Kelly appears well from a clinical standpoint. However the persistent diarrhea is obviously problematic and could be associated with some gluten ingestion without her being aware of it, the onset of some colitis such as microscopic colitis that is seen with celiac disease, and/or a component of some irritable bowel syndrome. Of note, she has also had a previous history of C. difficile infection. I shall check the below laboratories including celiac disease laboratories, magnesium level, and thyroid studies for further assessment of her ongoing issues with diarrhea and fatigue. I shall also schedule her for a follow-up colonoscopy as it has been 4 years since her last exam and I think would be important to exclude any type of colitis such as microscopic colitis or even inflammatory bowel disease. She will also have an upper endoscopy on the same day to obtain duodenal biopsies to see if there is any active celiac disease. She was advised to stop her aspirin for 2 or 3 days before the procedures. Full consent has been obtained from her for both procedures, including risk of bleeding and perforation. The procedures will be done with monitored anesthesia care. In addition to the laboratories listed below, she will also submit stool specimens to rule out any type of infection. I shall check a fecal calprotectin level for any indirect evidence of inflammatory bowel disease as well. I did advise her to continue to use Imodium as needed, continue the strict gluten-free diet, and continue to avoid lactose to hopefully get better control of her diarrhea. I did advise her to contact me prior to the procedures if she has any problems or questions I can be of assistance with. Kelly and her were comfortable with this plan. Thank you again for allowing me to participate in Kelly's care. I shall continue to keep you advised of her progress. 03/20/2025 Celiac disease (ICD-10 - K90.0) Overall, Kelly appears well from a clinical standpoint. However the persistent diarrhea is obviously problematic and could be associated with some gluten ingestion without her being aware of it, the onset of some colitis such as microscopic colitis that is seen with celiac disease, and/or a component of some irritable bowel syndrome. Of note, she has also had a previous history of C. difficile infection. I shall check the below laboratories including celiac disease laboratories, magnesium level, and thyroid studies for further assessment of her ongoing issues with diarrhea and fatigue. I shall also schedule her for a follow-up colonoscopy as it has been 4 years since her last exam and I think would be important to exclude any type of colitis such as microscopic colitis or even inflammatory bowel disease. She will also have an upper endoscopy on the same day to obtain duodenal biopsies to see if there is any active celiac disease. She was advised to stop her aspirin for 2 or 3 days before the procedures. Full consent has been obtained from her for both procedures, including risk of bleeding and perforation. The procedures will be done with monitored anesthesia care. In addition to the laboratories listed below, she will also submit stool specimens to rule out any type of infection. I shall check a fecal calprotectin level for any indirect evidence of inflammatory bowel disease as well. I did advise her to continue to use Imodium as needed, continue the strict gluten-free diet, and continue to avoid lactose to hopefully get better control of her diarrhea. I did advise her to contact me prior to the procedures if she has any problems or questions I can be of assistance with. Kelly and her were comfortable with this plan. Thank you again for allowing me to participate in Kelly's care. I shall continue to keep you advised of her progress. 03/20/2025 Gastroesophageal reflux disease without esophagitis (ICD-10 - K21.9) Overall, Kelly appears well from a clinical standpoint. However the persistent diarrhea is obviously problematic and could be associated with some gluten ingestion without her being aware of it, the onset of some colitis such as microscopic colitis that is seen with celiac disease, and/or a component of some irritable bowel syndrome. Of note, she has also had a previous history of C. difficile infection. I shall check the below laboratories including celiac disease laboratories, magnesium level, and thyroid studies for further assessment of her ongoing issues with diarrhea and fatigue. I shall also schedule her for a follow-up colonoscopy as it has been 4 years since her last exam and I think would be important to exclude any type of colitis such as microscopic colitis or even inflammatory bowel disease. She will also have an upper endoscopy on the same day to obtain duodenal biopsies to see if there is any active celiac disease. She was advised to stop her aspirin for 2 or 3 days before the procedures. Full consent has been obtained from her for both procedures, including risk of bleeding and perforation. The procedures will be done with monitored anesthesia care. In addition to the laboratories listed below, she will also submit stool specimens to rule out any type of infection. I shall check a fecal calprotectin level for any indirect evidence of inflammatory bowel disease as well. I did advise her to continue to use Imodium as needed, continue the strict gluten-free diet, and continue to avoid lactose to hopefully get better control of her diarrhea. I did advise her to contact me prior to the procedures if she has any problems or questions I can be of assistance with. Kelly and her were comfortable with this plan. Thank you again for allowing me to participate in Kelly's care. I shall continue to keep you advised of her progress. 03/20/2025 Hx of adenomatous colonic polyps (ICD-10 - Z86.010) Overall, Kelly appears well from a clinical standpoint. However the persistent diarrhea is obviously problematic and could be associated with some gluten ingestion without her being aware of it, the onset of some colitis such as microscopic colitis that is seen with celiac disease, and/or a component of some irritable bowel syndrome. Of note, she has also had a previous history of C. difficile infection. I shall check the below laboratories including celiac disease laboratories, magnesium level, and thyroid studies for further assessment of her ongoing issues with diarrhea and fatigue. I shall also schedule her for a follow-up colonoscopy as it has been 4 years since her last exam and I think would be important to exclude any type of colitis such as microscopic colitis or even inflammatory bowel disease. She will also have an upper endoscopy on the same day to obtain duodenal biopsies to see if there is any active celiac disease. She was advised to stop her aspirin for 2 or 3 days before the procedures. Full consent has been obtained from her for both procedures, including risk of bleeding and perforation. The procedures will be done with monitored anesthesia care. In addition to the laboratories listed below, she will also submit stool specimens to rule out any type of infection. I shall check a fecal calprotectin level for any indirect evidence of inflammatory bowel disease as well. I did advise her to continue to use Imodium as needed, continue the strict gluten-free diet, and continue to avoid lactose to hopefully get better control of her diarrhea. I did advise her to contact me prior to the procedures if she has any problems or questions I can be of assistance with. Kelly and her were comfortable with this plan. Thank you again for allowing me to participate in Kelly's care. I shall continue to keep you advised of her progress. Plan Of Treatment Treatment Notes Assessment Notes Diarrhea, unspecified type Use Imodium e very 6 hours as needed for diarrhea Pending Test Test Name Order Date UPPER GI ENDOSCOPY 03/20/2025 COLONOSCOPY 03/20/2025 CHEM 7 PROFILE 03/20/2025 LIVER PROFILE 03/20/2025 TSH (THYROID STIMULATING HORMONE) 2024 CRP 03/20/2025 CBC w DIFF 03/20/2025 SED RATE (ESR) 03/20/2025 Magnesium 03/20/2025 T4 Thyroxine 03/20/2025 Celiac Panel 10 03/20/2025 CDiff with Reflex to PCR 03/20/2025 Giardia Ag Stool EIA 03/20/2025 Calprotectin, Fecal 03/20/2025 GI PANEL 03/20/2025 Next Appt Details Provider Name:Gene Crowe , 05/04/2025 02:30:00 PM, [address] [place] [address], [phone], Progress Notes * KELLY CHAPA PDOB:[birth year] (65 yo F)Acc No.[id number]:03/20/2025 Progress Notes Patient: KELLY GUERRERO Provider: Lexie Crowe MD :1960 A ge:65 Y S ex:Female Date:03/20/2025 Address:[address] [place], [place] [id number] Pcp:Fartun Imelda Subjective: * Chief Complaints: * 1 . Patient presents today for Bloating and fall. * HPI: i ncontinence: I saw Kelly in consultation today in regard to further evaluation of ongoing issues with diarrhea, fatigue, history of celiac disease, history of a tubular adenoma of the colon, and some intermittent hematochezia. She was accompanied by her . I last saw Kelly in March 2022. Since that time she reports that she has stayed on a strict gluten-free diet. She eats out occasionally but orders from a gluten- free menu as well. She describes that for the past 3 to 6 months he has been having daily bouts of frequent diarrhea and some urgency. She has noticed rare episodes of blood on the toilet paper. She has been using Imodium lately with some relief. She denies any melena. She denies any upper GI complaints of significant nausea, vomiting, or heartburn. She does continue on her PPI. She denies any abdominal pain other than some cramps. She has not noticed any jaundice nor any unintentional weight loss. Prior to the onset of her diarrhea she was not using any antibiotics and did not have any travel nor ill contacts. She thinks part of the diarrhea might be from stress. She has been staying on a lactose-free diet as well. She was started on 81 mg aspirin and atorvastatin for questionable TIA earlier this year. Her magnesium supplement was also increased recently due to the diarrhea and fatigue as she did have problems in the past with hypomagnesemia requiring ER visits. * Medical History: A emir, Denies [place],DM,CVA,renal disease, Gastroesophageal reflux- upper endoscopy in April 2021 revealed a small to moderate-sized hiatal hernia, but no evidence of any esophagitis nor Alicia's esophagus. Gastric biopsies were negative for H. pylori. She did have a very mild esophageal ring that was dilated with a 20 mm balloon, Celiac disease with duodenal biopsies in April of 2021 showing mild villous blunting and increased intraepithelial lymphocytes; celiac disease laboratories were negative at that time; she did improve significantly on a gluten-free diet thereafter, Irritable bowel syndrome- colonoscopy in April of 2021 was negative for inflammatory bowel disease and biopsies were negative for microscopic colitis, Tubular adenoma removed during her April 2021 colonoscopy, C. difficile infection in April of 2021 requiring hospitalization and treated with po vancomycin and IV Flagyl. This was probably related to some preceding use of antibiotics,, Hypomagnesemia in relation to the severe C. difficile infection and diarrhea. This did resolve although she did require some IV magnesium at an ER visit after the above hospitalization for C. difficile. This stabilized with the use of oral magnesium supplements with a normal magnesium level on 07/29/2021, IBS, 03/20/25- She was seen by the eye doctor just before the office visit with me and was started on some prednisone eyedrops for inflammation in the right eye that she was told might be some type of autoimmune issue. * Surgical History: C holecystectomy , Tonsillectomy , Lumpectomy/ benign . * Family History: F ather: , diagnosed with Heart disease. M other: . No known family history of colorectal cancer, inflammatory bowel disease, or celiac disease. NO family history liver cancer. * Social History: T obacco Use: T obacco Control (Standard) T obacco use: C urrent smoker. D rugs/Alcohol: A lcohol Screen D id you have a drink containing alcohol in the past year? Y es, H ow often did you have a drink containing alcohol in the past year? M onthly or less (1 point), How many drinks did you have on a typical day when you were drinking in the past year? 1 or 2 drinks (0 point), H ow often did you have 6 or more drinks on one occasion in the past year??Never (0 point), P oints 1 , I nterpretation N egative. M iscellaneous: M arital status: . 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 D rug/Alcohol: A NORMA-C (Standard) D id you have a drink containing alcohol in the past year? Y es,?How often did you have a drink containing alcohol in the past year? 2 to 4 times a month (2 points), H ow many drinks did you have on a typical day when you were drinking in the past year? 3 or 4 drinks (1 point), H ow often did you have six or more drinks on one occasion in the past year? N ever (0 point), P oints 3 , I nterpretation P ositive. F ormer smoker; she denies any significant alcohol use. * Medications: T aking Aspirin 81 81 MG Tablet Delayed Release 1 tablet Orally Once a day , Taking Omeprazole 20 MG Capsule Delayed Release 1 Orally BID , Notes to Pharmacist: twice a day, Taking Advair Diskus 100-50 MCG/DOSE Aerosol Powder Breath Activated INHALE 1 PUFF BY MOUTH TWICE DAILY. RINSE MOUTH AND THROAT AFTER USE Inhalation , Taking Albuterol Sulfate HFA 108 (90 Base) MCG/ACT Aerosol Solution INHALE 2 PUFFS BY MOUTH FOUR TIMES DAILY Inhalation , Taking Magnesium Lactate 84 MG (7MEQ) Tablet Extended Release 1 tablet Orally every 12 hrs , Notes to Pharmacist: 2 pills, 3 times a day, Taking Atorvastatin Calcium 40 MG Tablet Oral , Taking Latanoprost 0.005 % Solution INSTILL 1 DROP IN BOTH EYES EVERY EVENING Ophthalmic , Taking prednisoLONE Acetate 1 % Suspension Ophthalmic , Unknown Zofran 4 MG Tablet 1 tablet Orally Q 4-6 hours prn nausea , Unknown Magnesium Gluconate 550 MG Tablet 1 tablet Orally BID * Allergies: F lagyl, Antibiotic. Objective: * Vitals: W t: 193 lbs, Ht: 67 in, BMI:30.22Index, BP: 001/01 mm Hg, Temp: 96.6, Wt-k.54. Assessment: * Assessment: 1. D iarrhea, unspecified type - R19.7 (Primary) 2 . C eliac disease - K90.0 3 . G astroesophageal reflux disease without esophagitis - K21.9 ?4. H x of adenomatous colonic polyps - Z86.010 Overall, Kelly appears well from a clinical standpoint. However the persistent diarrhea is obviously problematic and could be associated with some gluten ingestion without her being aware of it, the onset of some colitis such as microscopic colitis that is seen with celiac disease, and/or a component of some irritable bowel syndrome. Of note, she has also had a previous history of C. difficile infection. I shall check the below laboratories including celiac disease laboratories, magnesium level, and thyroid studies for further assessment of her ongoing issues with diarrhea and fatigue. I shall also schedule her for a follow-up colonoscopy as it has been 4 years since her last exam and I think would be important to exclude any type of colitis such as microscopic colitis or even inflammatory bowel disease. She will also have an upper endoscopy on the same day to obtain duodenal biopsies to see if there is any active celiac disease. She was advised to stop her aspirin for 2 or 3 days before the procedures. Full consent has been obtained from her for both procedures, including risk of bleeding and perforation. The procedures will be done with monitored anesthesia care. In addition to the laboratories listed below, she will also submit stool specimens to rule out any type of infection. I shall check a fecal calprotectin level for any indirect evidence of inflammatory bowel disease as well. I did advise her to continue to use Imodium as needed, continue the strict gluten-free diet, and continue to avoid lactose to hopefully get better control of her diarrhea. I did advise her to contact me prior to the procedures if she has any problems or questions I can be of assistance with. Kelly and her were comfortable with this plan. Thank you again for allowing me to participate in Kelly's care. I shall continue to keep you advised of her progress. Plan: * Treatment: Value Reference Range M agnesium 2.2 1.6-2.6 - mg/dL ?LAB: T4 Thyroxine (Collection Date & Time - 03/20/2025 12:13 PM)* Value Reference Range T 4 Thyroxine 8.7 4.5-12.0 - ug/dL ?LAB: Celiac Panel 10 ?LAB: CDiff with Reflex to PCR ?LAB: Giardia Ag Stool EIA (Collection Date & Time - 03/21/2025 09:30 AM)* Value Reference Range G iardia Ag Stool EIA SEE NOTE - ?LAB: Calprotectin, Fecal ?LAB: GI PANEL (Collection Date & Time - 03/21/2025 09:30 AM)* Value Reference Range C ampylobacter Not Detected Not Detect. - * P lesiomonas shigelloides Not Detected Not Detect. - * S almonella Not Detected Not Detect. - * V ibrio Not Detected Not Detect. - * V ibrio cholerae Not Detected Not Detect. - * Y ersinia enterocolitica Not Detected Not Detect. - * E . coli EAEC Not Detected Not Detect. - * E . coli EPEC Not Detected Not Detect. - * E . coli ETEC Not Detected Not Detect. - * E . coli STEC Not Detected Not Detect. - * E coli O157 Not applicable Not Detect. - * S higella sp./EIEC Not Detected Not Detect. - * C ryptosporidium Not Detected Not Detect. - * C yclospora cayetanesis Not Detected Not Detect. - * E ntamoeba histolytica Not Detected Not Detect. - * G iardia lamblia Not Detected Not Detect. - * A denovirus F 40/41 Not Detected Not Detect. - * A strovirus Not Detected Not Detect. - * N orovirus GI/GII Not Detected Not Detect. - * R otavirus A Not Detected Not Detect. - * S apovirus Not Detected Not Detect. - ?Procedure: UPPER GI ENDOSCOPY* sched for 05/04/25 at 2:30 pm mac ?Procedure: COLONOSCOPY* with MAC sched for 05/04/25 a t 2:30 pmmiralaxno aspirin for 3 days prior Notes: Use Imodium every 6 hours as needed for diarrhea??2.?Celiac disease?LAB: CHEM 7 PROFILE ?LAB: LIVER PROFILE ?LAB: TSH (THYROID STIMULATING HORMONE) ?LAB: CRP ?LAB: CBC w DIFF ?LAB: SED RATE (ESR) ?LAB: Magnesium (Collection Date & Time - 03/20/2025 12:13 PM)* Value Reference Range M agnesium 2.2 1.6-2.6 - mg/dL ?LAB: T4 Thyroxine (Collection Date & Time - 03/20/2025 12:13 PM)* Value Reference Range T 4 Thyroxine 8.7 4.5-12.0 - ug/dL ?LAB: Celiac Panel 10 ?LAB: CDiff with Reflex to PCR ?LAB: Giardia Ag Stool EIA (Collection Date & Time - 03/21/2025 09:30 AM)* Value Reference Range G iardia Ag Stool EIA SEE NOTE - ?LAB: Calprotectin, Fecal ?LAB: GI PANEL (Collection Date & Time - 03/21/2025 09:30 AM)* Value Reference Range C ampylobacter Not Detected Not Detect. - * P lesiomonas shigelloides Not Detected Not Detect. - * S almonella Not Detected Not Detect. - * V ibrio Not Detected Not Detect. - * V ibrio cholerae Not Detected Not Detect. - * Y ersinia enterocolitica Not Detected Not Detect. - * E . coli EAEC Not Detected Not Detect. - * E . coli EPEC Not Detected Not Detect. - * E . coli ETEC Not Detected Not Detect. - * E . coli STEC Not Detected Not Detect. - * E coli O157 Not applicable Not Detect. - * S higella sp./EIEC Not Detected Not Detect. - * C ryptosporidium Not Detected Not Detect. - * C yclospora cayetanesis Not Detected Not Detect. - * E ntamoeba histolytica Not Detected Not Detect. - * G iardia lamblia Not Detected Not Detect. - * A denovirus F 40/41 Not Detected Not Detect. - * A strovirus Not Detected Not Detect. - * N orovirus GI/GII Not Detected Not Detect. - * R otavirus A Not Detected Not Detect. - * S apovirus Not Detected Not Detect. - ?Procedure: UPPER GI ENDOSCOPY* sched for 05/04/25 at 2:30 pm mac 3.?Hx of adenomatous colonic polyps?Procedure: COLONOSCOPY* with MAC sched for 05/04/25 a t 2:30 pmmiralaxno aspirin for 3 days prior * Procedure Codes: 4 5378 DIAGNOSTIC COLONOSCOPY, 04813 UPPR GI ENDOSCOPY, DIAGNOSIS * Preventive Medicine: Counseling: C are goal follow-up plan: A bran Normal BMI Follow-up D ietary management education, guidance, and counseling, B WA management provided Y es. S moking Patient counseled on the dangers of tobacco use and urged to quit. 0 03/20/2025, R elapse prevention: D iscussed the importance of a supportive environment and helped identify them..? * * The named appointment provid er may or may not be the originator of this progress note, and it is not deemed complete until electronically signed by the appointment provider. Sign off status: Pending * Provider: Lexie Crowe MD Date: 0 03/20/2025 Generated for Dee Deei kassie/Shila/eTransmitting on: 0 03/27/2025 08:47 AM EDT History and Physical Notes * HPI (History of Present Illness) Category Sub-Category Detail Notes Category Not es incontinence I saw Kelly in consultation today in regard to further evaluation of ongoing issues with diarrhea, fatigue, history of celiac disease, history of a tubular adenoma of the colon, and some intermittent hematochezia. She was accompanied by her . I last saw Kelly in March 2022. Since that time she reports that she has stayed on a strict gluten-free diet. She eats out occasionally but orders from a gluten-free menu as well. She describes that for the past 3 to 6 months he has been having daily bouts of frequent diarrhea and some urgency. She has noticed rare episodes of blood on the toilet paper. She has been using Imodium lately with some relief. She denies any melena. She denies any upper GI complaints of significant nausea, vomiting, or heartburn. She does continue on her PPI. She denies any abdominal pain other than some cramps. She has not noticed any jaundice nor any unintentional weight loss. Prior to the onset of her diarrhea she was not using any antibiotics and did not have any travel nor ill contacts. She thinks part of the diarrhea might be from stress. She has been staying on a lactose-free diet as well. She was started on 81 mg aspirin and atorvastatin for questionable TIA earlier this year. Her magnesium supplement was also increased recently due to the diarrhea and fatigue as she did have problems in the past with hypomagnesemia requiring ER visits.
--- OUTSIDE RECORDS SUMMARY | 2025-03-27 08:47 | XMS_ITS | Clinical Summary ---
Author Organization [facility] Address [address] [place] [address] Phone Care Team Providers Care Trailer Rental Clerk Name Role Phone Fartun Rome Jame LOG CUTTER Primary Care Provider [phone] Allergies Active Allergy Reactions Criticality Noted Date [...] topic Medical Devices Not on file [place] [address] [address] PCC [facility] [place] [place] [address] PCC Care Teams Trailer Rental Clerk Relationship Specialty Start Date End Date Fartun Rome NP [address] [place] [address] PCP - General 09/05/21 Additional Source Comments The information contained in this document represents components of the legal health record. It is not the complete legal health record.[facility]
--- OUTSIDE RECORDS SUMMARY | 2025-03-27 08:47 | XMS_ITS | Patient Health Record ---
[facility] Address [address] [place] [address] Care Team Providers Care Planer Offbearer Name Role Phone Jeb MADSEN, [facility] Primary Care Provider Unavailab zeina Zofia Bai Unavailable [phone] Allergies Allergen (clinical drug ingredient) Drug/Non Drug [...] Status W/U Status Risk Notes Problem Arthralgia (20168790) Arthralgia (719.40) Active confirmed Problem Disorder of joint of ankle and/or foot (926787737) Arthritis - Degenerative (719.97) Active confirmed Problem Hammer toe (787811584) Hammer toe (735.4) Active confirmed Problem Metatarsalgia (86197134) Metatarsalgia (726.70) Active confirmed Problem Tailors bunion (4969672) Tailors Bunion (727.1) Active confirmed Problem Verruca plantaris (79816481) Verruca Plantaris (078.19) Active confirmed Plan Of Treatment Pending Test Test Name Order Date 57880-Xzmi Destruction, -12/11/2013 83133-Tqyv Destruction, 07-1102/19/2014 05936 I&D ABSCESS- SIMPLE,SINGLE 014 Insurance Providers Payer Name Payer Address Payer Phone Subscriber Number Group Number Insured Name Patient Relationship to Insured Coverage Start Date Coverage End Date A[employer]na Choice POS [address] [address] [place] [address] [id number] Martin Velasquez Spouse - patient is the spouse of the insured Medical (General) History Medical History History ICD Code asthma Back,Hip,and Knee pain Raynauds syndrome Reflux Surgical History Surgery Date(Month/Year) tonsillectomy cholecystectomy
--- OUTSIDE RECORDS SUMMARY | 2025-03-27 08:47 | XMS_ITS | Patient Health Record ---
Author Organization [facility] Address [address] [place] [address] Care Team Providers Care Dancer Or Choreographer Name Role Phone Fartun Segura Primary Care Provider Gene Shaw [phone] Allergies Allergen (clinical drug ingredient) Drug/Non Drug Allergy documented on EMR Reaction Allergy Type Onset Date Status metronidazole Flagyl Unknown Drug Allergy Act james bacitracin Antibiotic Unknown Drug Allergy Activ e Results Component Value Reference Range Notes Magnesium (Not yet reviewed by provider) Interpretation: Performing Lab:[facility], [address] [place] [phone] Notes/Report: Magnesium 2.2 1.6-2.6 mg/dL T4 Thyroxine (Not yet revie wed by provider) Interpretation: Performing Lab:[facility], [address] [place] [phone] Notes/Report: T4 Thyroxine 8.7 4.5-12.0 ug/dL Giardia Ag Stool EIA (Not ye t reviewed by provider) Interpretation: Performing Lab:[facility], [address] [place] [phone] Notes/Report: Giardia Ag Stool EIA SEE NOTE GIARDIA AG, EIA, STOOL Micro Number: [id number] Test Status: Final Specimen Source: Stool Specimen Quality: Adequate Giardia Result 1: Not Detected Reference Range: Not Detected NOTE: Due to intermittent shedding, one negative sample does not necessarily rule out the presence of a parasitic infection. THIS TEST WAS PERFORMED AT: [facility] [address] [place] [phone] PRICE SAUNDERS MD GI PANEL (Not yet reviewed b y provider) Interpretation: Performing Lab:[facility], [address] [place] [phone] Notes/Report: Campylobacter Not Detected Not Detect. Plesiomonas [...] is performed by Multiplexed PCR, utilizing the [employer] Array. Complete Blood Count Auto Di ff (Not yet reviewed by provider) Interpretation: Performing Lab:[facility], [address] [place] [phone] Notes/Report: White Blood Count 7.7 4.8-10.8 X10*3/uL [...] (Not yet reviewed by provider) Interpretation: Performing Lab:[address] [phone] Notes/Report: Erythrocyte Sedimentation Rate 17 0-20 MM/HR Patients with polycythemia and many hemoglobin abnormalities may have depressed sed rates whereas patients with anemia may have elevated sed rates. Liver Panel (Not yet reviewe d by provider) Interpretation: Performing Lab:[address] [address] Notes/Report: Bilirubin Total 0.5 0.0-1.0 mg/dL Bilirubin Direct 0.2 0.0-0.5 mg/dL Aspartate Amino Transferase 32 5-31 U/L Alanine Aminotransferase 23 0-31 U/L Total Protein 7.2 6.5-8.0 g/dL Albumin Level 4.6 3.5-5.0 g/dL Alkaline Phosphatase 105 39-117 U/L Basic Metabolic Panel (Not y et reviewed by provider) Interpretation: Performing Lab:[address] [address] Notes/Report: Sodium 143 135-145 mmol/L Potassium 4.3 [...] (Not yet reviewed by provider) Interpretation: Performing Lab:[address] [address] Notes/Report: C Reactive Protein 0.30 < or = 0.50 mg/dL Thyroid Stimulating Hormone (Not yet reviewed by provider) Interpretation: Performing Lab:[address] [address] Notes/Report: Thyroid Stimulating Hormone 1.30 0.32-4.0 uIU/mL TSH 3rd Generation ([facility]) Celiac Disease Panel (Not ye t reviewed by provider) Interpretation: Performing Lab:[address] [address] Notes/Report: Immunoglobulin A 134 70-320 mg/dL THIS TEST WAS PERFORMED AT: [facility] [address] [place] [phone] PRICE SAUNDERS MD Transglutaminase IgA <1.0 Value Interpretation ----- <15.0 Antibody not detected > or = 15.0 Antibody detected Celiac Disease Panel Interp. SEE NOTE No serological evidence of celiac disease. tTG IgA may normalize in individuals with celiac disease who maintain a gluten-free diet. Consider HLA DQ2 and DQ8 testing to rule out celiac disease. Celiac disease is extremely rare in the absence of DQ2 or DQ8. CDiff Gene PCR Reviewed date:03/22/2025 09:36:29 AM Interpretation: Performing Lab:[facility], [address] [place] [address], [place] [address] Notes/Report: CDiff Gene PCR NEGATIVE Negative If [...] Problem Status W/U Status Risk Notes Problem 623960966 Encounter for screening for malignant neoplasm of colon (Z12.11) Active confirmed Problem 077596161 Magnesium deficiency (E61.2) Active confirmed Problem 418002631 Hypomagnesemia (E83.42) Active confirmed Problem Diverticular disease of colon (023162260) Diverticulosis of large intestine without perforation or abscess without bleeding (K57.30) Active confirmed Problem 141971601 Celiac disease (K90.0) Active confirmed Problem 822978803 Nausea (R11.0) Active confirmed Problem 66452920 Weakness (R53.1) Active confirmed Problem 185575091 Gastroesophageal reflux disease without esophagitis (K21.9) Active confirmed Problem Esophageal ring (72880828) Esophageal ring (K22.2) Active confirmed Problem Gastritis (0842647) Gastritis (K29.70) Active confirmed Problem 464528286 Hx of adenomatou s colonic polyps (Z86.010) Active confirmed Problem Esophageal reflux finding (567709119) Gastroesophageal reflux (K21.9) Active confirmed Problem 62378310 Diarrhea, unspecified type (R19.7) Active confirmed Problem 78472204 Inflammation present on biopsy of duodenum (K29.80) [...] N/A Encounters Encounter Location Date Provider Diagnosis [facility] [address] [place] [address] 03/20/2025 Gene Crowe Diarrhea, unspecifie d type [...] 03/20/2025 Calprotectin, Fecal 03/20/2025 GI PANEL 03/20/2025 Celiac Disease Panel 03/20/2025 Next Appt Details Provider Name:Gene Roa Sebastien , 05/04/2025 02:30:00 PM, [address] [place] [address] , [place], [place], [phone], Insurance Providers Payer Name Payer Address Payer Phone Subscriber Number Group Number Insured Name Patient Relationship to Insured Coverage Start Date Coverage End Date [facility] [address] [facility] [place] [phone] [id number] KELLY CHAPA Self - patient is the insured 3 MEDICAID OF [facility] [address] [place] [phone] [id number] KELLY CHAPA Self - patient is the insured Medical (General) History Medical History History ICD Code Asthma Denies [place],DM,CVA,renal disease Gastroesophageal reflux- upp er endoscopy in [...] 2020 colonoscopy C. difficile infection in No ber 2020 requiring hospitalization and treated with po [...]
--- NOTE | 2025-05-02 11:31 | P.CONAN_ITS ---
Documented by User: Jasmin Bailey NP 05/02/25 11:32 HPI - Anesthesia Eval Consult details Narrative: 65 yr old female for Upper Endoscopy and Colonoscopy [facility] Past Medical History Medical History Celiac disease GERD (gastroesophageal reflux disease) Asthma IBS (irritable bowel syndrome) Small bowel obstruction C. difficile diarrhea Family History Family History Other IBD (inflammatory bowel disease) Surgical History Surgical History Hx of lumpectomy Hx of tonsillectomy H/O colonoscopy History of esophagogastroduodenoscopy (EGD) History of laparoscopic cholecystectomy History of Problems with Anesthesia: No Social History Social History Household Members: Spouse Housing: House Are you a primary career resource technician to a significant other at home: No Do you presently have visiting nurse or other home services: No Alcohol intake: current Alcohol intake frequency: holidays/special occasions only Patient Tobacco Use Status: Current everyday Tobacco user Tobacco use type: Cigarette Cigarette Packs Per Day: 0.5 Cigarettes Per Day: 10.0 Smoked in Last 30 Days: Yes Patient Interested in Nicotine Replacement: No Have you been hit, kicked, punched, or otherwise hurt by someone within the past year? If so, by whom?: No Are you DNR?: No Advance Directives: No Advance Directives Information Provided: Yes service: No Current occupational status: employed and other Meds Allergies Allergy/AdvReac Type Severity Reaction Status Date / Time metronidazole (From Flagyl) Allergy Intermediate Rash Verified 04/28/21 11:24 amoxicillin (From AUGMENTIN) Allergy Mild NAUSEA & Verified 04/24/21 20:16 VOMITING clavulanic acid (From Allergy Mild NAUSEA & Verified 04/24/21 20:16 AUGMENTIN) VOMITING Penicillins (PCN) Allergy Mild HIVES Verified 04/24/21 20:16 Sulfa (Sulfonamide Allergy Mild HIVES Verified 04/24/21 20:16 Antibiotics) (SULFA (SULFONAMIDE ANTIBIOTICS)) Home Medications ?Medication ?Instructions ?Recorded ?Confirmed ?Last Taken ?Type albuterol sulfate 90 mcg/actuation 2 puff PO QID 04/2405/02/25 Unknown History aerosol inhaler fluticasone 100 mcg-salmeterol 50 1 puff PO BID 05/02/25 05/12/21 History mcg/dose blistr powdr for inhalation (Advair Diskus) omeprazole 20 mg capsule,delayed 1 cap PO BID 04/24/21 05/02/25 05/12/21 History release clobetasol 0.05 % topical cream 1 appl topical BID 05/13/21 05/12/21 History aspirin 81 mg tablet,delayed 81 mg PO DAILY 05/02/25 1 07/02/24 Unknown History release atorvastatin 40 mg tablet 40 mg PO DAILY 05/02/2511/19 Unknown History latanoprost 0.005 % eye drops 1 drp ophthalmic (eye) Q PM 05/02/25 05/02/25 Unknown History prednisolone acetate 1 % eye 1 drp ophthalmic-Right QI D 05/02/25 05/02/25 Unknown History drops,suspension Exam Pertinent Lab Results Pertinent Lab Results: Laboratory Tests 03/20/25 12:13 WBC 7.7 RBC 4.36 Hgb 12.8 Hct 39.4 Plt Count 278 Sodium 143 Potassium 4.3 Chloride 107 Carbon Dioxide 30 H BUN 12 Creatinine 0.86 Assessment and Plan Final Anesthetic Review History of Problems with Anesthesia: No Documented by User: Sheryl Brown MD 05/04/25 12:47 PMFSH Past Medical History Medical History Celiac disease GERD (gastroesophageal reflux disease) Asthma IBS (irritable bowel syndrome) Small bowel obstruction C. difficile diarrhea Family History Family History Other IBD (inflammatory bowel disease) Family history of problems with anesthesia: No Surgical History Surgical History Hx of lumpectomy Hx of tonsillectomy H/O colonoscopy History of esophagogastroduodenoscopy (EGD) History of laparoscopic cholecystectomy Social History Social History Household Members: Spouse Housing: House Are you a primary career resource technician to a significant other at home: No Do you presently have visiting nurse or other home services: No Alcohol intake: current Alcohol intake frequency: holidays/special occasions only Patient Tobacco Use Status: Current everyday Tobacco user Tobacco use type: Cigarette Cigarette Packs Per Day: 0.5 Cigarettes Per Day: 10.0 Smoked in Last 30 Days: Yes Patient Interested in Nicotine Replacement: No Have you been hit, kicked, punched, or otherwise hurt by someone within the past year? If so, by whom?: No Are you DNR?: No Advance Directives: No Advance Directives Information Provided: Yes service: No Current occupational status: employed and other Meds Allergies Allergy/AdvReac Type Severity Reaction Status Date / Time metronidazole (From Flagyl) Allergy Intermediate Rash Verified 04/28/21 11:24 amoxicillin (From AUGMENTIN) Allergy Mild NAUSEA & Verified 04/24/21 20:16 VOMITING clavulanic acid (From Allergy Mild NAUSEA & Verified 04/24/21 20:16 AUGMENTIN) VOMITING Penicillins (PCN) Allergy Mild HIVES Verified 04/24/21 20:16 Sulfa (Sulfonamide Allergy Mild HIVES Verified 04/24/21 20:16 Antibiotics) (SULFA (SULFONAMIDE ANTIBIOTICS)) Home Medications ?Medication ?Instructions ?Recorded ?Confirmed ?Last Taken ?Type albuterol sulfate 90 mcg/actuation 2 puff PO QID 04/2405/02/25 Unknown History aerosol inhaler fluticasone 100 mcg-salmeterol 50 1 puff PO BID 05/02/25 05/12/21 History mcg/dose blistr powdr for inhalation (Advair Diskus) omeprazole 20 mg capsule,delayed 1 cap PO BID 04/24/21 05/02/25 05/12/21 History release clobetasol 0.05 % topical cream 1 appl topical BID 05/13/21 05/12/21 History aspirin 81 mg tablet,delayed 81 mg PO DAILY 05/02/25 1 07/02/24 Unknown History release atorvastatin 40 mg tablet 40 mg PO DAILY 05/02/2511/19 Unknown History latanoprost 0.005 % eye drops 1 drp ophthalmic (eye) Q PM 05/02/25 05/02/25 Unknown History prednisolone acetate 1 % eye 1 drp ophthalmic-Right QI D 05/02/25 05/02/25 Unknown History drops,suspension Exam Airway Mallampati Class: II TM Dist: >3cm Neck ROM: Full Heart: rrr Lungs: cta Assessment and Plan Assessment Anesthesia Assessment: Anesthesia Plan Discussed and Chart Reviewed Final Anesthetic Review Family History of Problems with Anesthesia: No NPO: Yes ASA Class: III Final Preanesthetic Review: No Changes in Pt Med Stat, Meds/Allgs Chart Rev iewed, Consent Obtained/Reviewed and Anes Risks/Benef Reviewed Patient Risk: Low Procedure Risk: Low Anesthetic Plan Anesthetic Plan: MAC: Disposition: Standard PACU
[2025-05-02 14:27] VITALS: BMI 30.2
[2025-05-04 12:32] VITALS: BMI 29.1
[2025-05-04] MEDS: Lactated Ringers 1,000 ML 100 ML IVCONT (12:45)
[2025-05-04 13:25] VITALS: BP 116/81; PULSE 75; RESP 18; TEMP 36.7; O2SAT 98
[2025-05-04] MEDS: Albuterol Sulfate (0.083%) 2.5 MG/3 ML VIAL.NEB INHALE (13:59)
[2025-05-04 15:37] VITALS: BP 83/40; PULSE 87; RESP 19; TEMP 36.9; O2SAT 97
[2025-05-04 15:40] VITALS: BP 101/53
--- NOTE | 2025-05-04 15:47 | PM.OP ---
Brief Operative Note Date of Service: 05/04/25 Pre-op diagnosis: Celiac disease, Diarrhea, History of colon polyps Post-op diagnosis: other (Hiatal hernia, History of celiac disease, Colon polyp) Procedure: EGD with biopsies and Colonoscopy to the cecum and TI with biopsies and cold snare polypectomy x 1 Surgeon: Gene Crowe MD Anesthesia: MAC Was an Band Machine Operator used for this Procedure?: No Estimated blood loss (mL): 2.0 Pathology: other (A. 2nd/3rd portions of duodenum B. Gastric antrum C. EG Junction at 33cm D. Terminal ileum E. Ascending colon F. Descending colon G. Polyp at 20cm) Condition: stable Disposition: PACU
[2025-05-04 15:52] VITALS: BP 102/50; PULSE 73; RESP 16; O2SAT 97
[2025-05-04 16:07] VITALS: BP 110/57; PULSE 67; RESP 18; TEMP 37; O2SAT 97
--- NOTE | 2025-05-05 01:09 | OP_ITS ---
DATE OF SERVICE: 05/04/2025 SURGEON: Gene Crowe MD INDICATIONS: The patient presents for evaluation of diarrhea, history of celiac disease, history of tubular adenoma of the colon, and intermittent hematochezia. Full consent has been obtained from her for this, including risks of bleeding and perforation. PREOPERATIVE DIAGNOSIS: POSTOPERATIVE DIAGNOSIS: PROCEDURE PERFORMED: Esophagogastroduodenoscopy with biopsies, and colonoscopy to the cecum and terminal ileum with biopsies, and cold snare polypectomy x1. ESTIMATED BLOOD LOSS: COMPLICATIONS: ANESTHESIA: Medication used, monitored anesthesia care. ASSISTANTS: SPECIMENS: PREOPERATIVE DIAGNOSES: Diarrhea, history of celiac disease, history of tubular adenoma of the colon, and hematochezia. POSTOPERATIVE DIAGNOSES: Diarrhea, history of celiac disease, history of tubular adenoma of the colon, and hematochezia, colon polyp, rule out microscopic colitis, diverticulosis, internal and external hemorrhoids, gastroesophageal reflux. DESCRIPTION OF PROCEDURE: The patient was placed in the left lateral decubitus position. The Olympus video gastroscope was passed in the posterior oropharynx and upper esophagus under direct vision. The scope was passed slowly to the distal esophagus. The gastroesophageal junction appeared at 33 cm. There was some very minimal irregularity but no evidence of esophagitis nor any definitive Alicia's mucosa. The scope entered the stomach. There was a moderate-sized hiatal hernia. The scope was advanced to the pylorus, and the duodenum was cannulated to the descending portion. The duodenum including the bulb was carefully inspected. The duodenal folds appeared to be grossly normal, but biopsies were obtained at the 2nd and 3rd portions. The duodenal bulb appeared normal. The scope was withdrawn back in the stomach. The gastric antrum and body had some minimal areas of erythema but no erosions or ulceration. There was good peristalsis. Biopsies were obtained from the antrum. The scope was retroflexed visualizing the proximal stomach carefully, which appeared normal, without any sign of mass or ulceration. The scope was straightened and withdrawn back to the esophagus. Biopsies were obtained at the EG junction at 33 cm. Proximal to this, the esophageal mucosa appeared normal. The scope was withdrawn from the patient. She was turned around for the colonoscopy. The digital rectal exam revealed no abnormalities. The Olympus video pediatric colonoscope was entered into the rectum and advanced easily to the cecum. Once in the cecum, I did identify normal-appearing cecal pouch with appendiceal orifice and a normal-appearing ileocecal valve. The terminal ileum was cannulated and appeared normal. Biopsies were obtained from the ileum. The scope was withdrawn back in the colon. The entire cecum and ileocecal valve appeared normal. The scope was slowly withdrawn assessing all mucosal surfaces carefully. Preparation was excellent. I did not visualize any sign of colitis nor angiodysplasia. Random biopsies were obtained in the ascending and descending colon. At 20 cm was an approximately 8 mm flat, but raised polyp, which was removed by cold snare polypectomy and recovered by suction. The polypectomy site appeared clean, without any sign of residual polyp nor bleeding. I did not visualize any other polyps. There was a mild amount of sigmoid diverticulosis. In the rectum, the scope was retroflexed visualizing internal hemorrhoids, but no other pathology. The rectal mucosa appeared normal. The scope was straightened and withdrawn from the patient. She tolerated both procedures well and was returned to the recovery area in stable condition. IMPRESSION: 1. Hiatal hernia, gastroesophageal reflux. 2. History of celiac disease. 3. Rule out microscopic colitis. 4. Colon polyp. 5. Internal and external hemorrhoids. PLAN: The results of the pathology will be checked. I would recommend a repeat colonoscopy in 5 years for further surveillance. She was advised not to use any NSAIDs for 1 week. She was advised to continue her gluten free diet. She was advised to continue her omeprazole. She was advised to resume her aspirin in 72 hours. She will be seen in the office for followup. She will continue to use Imodium as needed as well for any diarrhea. MD TAMIKO Cleary/KENNA / [id number] JOEY
== END 2025-05-04 16:45 | disposition home or self-care (01) ==
PROVIDERS: PCP Student in an Organized Health Care Education/Training Program; Visit Provider Internal Medicine
PROC: (CPT 45380; principal; 2025-05-04 13:30)
DX: R19.7 Diarrhea, unspecified (principal); K90.0 Celiac disease; K21.9 Gastro-esophageal reflux disease without esophagitis; Z86.0101 Personal history of adenomatous and serrated colon polyps; K64.8 Other hemorrhoids; K64.4 Residual hemorrhoidal skin tags; K92.1 Melena; K44.9 Diaphragmatic hernia without obstruction or gangrene; K63.5 Polyp of colon; K57.90 Diverticulosis of intestine, part unspecified, without perforation or abscess without bleeding
CPT/HCPCS: 45380; 45385; 43239; 88305; 88313; 88342; J2704